=== PATIENT | female | born 1985 | race American Indian/Alaskan Native ===

== ENCOUNTER → 2022-10-15 14:24 | Outpatient (BNVA) | payer OTHER, SELFPAY | PROVIDERS: PCP Internal Medicine; Visit Provider Psychiatry & Neurology Neurology | DX: G82.20 Paraplegia, unspecified (principal) | CPT/HCPCS: 99202 ==

== ENCOUNTER 2022-10-28 13:30 | Outpatient (REF) | payer OTHER, SELFPAY ==
--- NOTE | ~2022-10-28 | CT_ITS ---
EXAMINATION: CT HEAD WITHOUT CONTRAST CLINICAL INFORMATION: Paraplegia COMPARISON: None available. TECHNIQUE: Contiguous axial imaging was performed from the skull base to vertex without intravenous administration of contrast. This CT examination was performed using dose optimization techniques as appropriate, variously including the following: *Automated exposure control *Adjustment of mA and/or kV according to patient size (this includes techniques or standardized protocols for targeted exams where dose is matched to indication/reason for exam; i.e. extremities or head) *Use of iterative reconstruction technique DLP: 605 mGy-cm FINDINGS: There is no evidence of an extra-axial collection. There is no evidence of intra or extra-axial hemorrhage. There is a prominent extra-axial CSF spaces adjacent to the superior cerebellum. Ventricles and extra-axial CSF spaces are otherwise appropriate. Blue-white matter is differentiation is normal. No mass, mass effect or infarct. Review of bone windows is normal. No skull fracture. Visualized paranasal sinuses, mastoid air cells and middle ears are clear. CT/CT head/brain wo IV con IMPRESSION: No acute findings.
== END 2022-10-28 13:31 | disposition home or self-care (01) ==
LOC: HO.CT 13:30
PROVIDERS: Visit Provider Psychiatry & Neurology Neurology
DX: G82.20 Paraplegia, unspecified (principal)
CPT/HCPCS: 70450

== ENCOUNTER 2023-03-23 14:09 | Outpatient (AMB) | payer OTHER, SELFPAY ==
[2023-03-23 14:10] VITALS: BP 104/58; PULSE 77; O2SAT 98; BMI 25.5
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
== END 2023-03-23 14:40 | disposition home or self-care (01) ==
PROVIDERS: PCP Internal Medicine; Visit Provider Psychiatry & Neurology Neurology
DX: G82.20 Paraplegia, unspecified (principal); G25.2 Other specified forms of tremor
CPT/HCPCS: 99214

== ENCOUNTER → 2023-03-23 14:09 | Outpatient (BNVA) | payer OTHER, SELFPAY | PROVIDERS: PCP Internal Medicine; Visit Provider Psychiatry & Neurology Neurology | DX: G82.20 Paraplegia, unspecified (principal); G25.2 Other specified forms of tremor | CPT/HCPCS: 99212 ==

== ENCOUNTER 2023-12-14 15:45 | Outpatient (AMB) | payer OTHER, SELFPAY ==
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
[2023-12-14 15:51] VITALS: BP 122/72; PULSE 60; RESP 16; O2SAT 100
== END 2023-12-14 16:14 | disposition home or self-care (01) ==
PROVIDERS: PCP Internal Medicine; Visit Provider Psychiatry & Neurology Neurology
DX: G82.20 Paraplegia, unspecified (principal); G25.2 Other specified forms of tremor
CPT/HCPCS: 99214

== ENCOUNTER → 2023-12-14 15:45 | Outpatient (BNVA) | payer OTHER, SELFPAY | PROVIDERS: PCP Internal Medicine; Visit Provider Psychiatry & Neurology Neurology | DX: G82.20 Paraplegia, unspecified (principal); G25.2 Other specified forms of tremor | CPT/HCPCS: 99212 ==

== ENCOUNTER 2024-01-06 11:14 | Outpatient (AMB) | payer OTHER, SELFPAY ==
--- NOTE | 2024-01-06 11:39 | MHC.OFFVIS ---
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 Pt states the beginning of November she fell at a gas station due to her legs just giving out. She states the only time there is pain is when she has a fall. Allergies propofol Adverse Reaction (Unknown, Verified 01/06/24 11:41) Unknown Medication List - Last Reconciled 01/06/24 by Anny Menjivar MD acetaminophen 325 mg PO QID PRN blood sugar diagnostic (FreeStyle Lite Strips) As directed blood-glucose meter (FreeStyle Lite Meter kit) As directed buspirone 5 mg PO DAILY hydroxyzine HCl 25 mg PO BEDTIME lancets (FreeStyle Lancets) As directed mirtazapine 15 mg PO BEDTIME propranolol 10 mg PO BID HPI Comments Details: Here with mom and Valery, nurse from [facility]. No history of surgery. Uses bilateral AFOs, new this year. She has walker and WC, but most of the time does not use it. She says she takes it when she goes to day program. Independent with ADLs. Lives in own apartment, owned by [facility]. Staff available 2-3 times a day, assist with medication reminders and BP monitoring. Appointment to start PT 01/10/24. Feels stabbing when she walks, pointing to xiong. Old scar/redness from older braces, denies rubbing with new AFOs. Legs give out, she tends to fall. Less weakness with this new AFO. Both feet at plantarflexed, difficulty/weakness on dorsiflexion. Denies numbness. She has not had any type of injection or surgery to her legs/ankle. [facility] Medical History (Updated 01/06/24 @ 13:17 by Anny Menjivar MD) Spastic diplegic cerebral palsy Coarse tremors Paraparesis Intellectual disability Glucose intolerance Anxiety Developmental delay, borderline Complete heart block Pacemaker Social History Alcohol intake: never Patient Tobacco Use Status: Never used Tobacco Review of Systems Const All systems reviewed & are unremarkable except as noted in HPI and below Physical Exam Constitutional: Patient appears to be in no acute distress, well nourished and well developed. MSK/neuro: Patient has at least 4/5 strength on bilateral hip flexion, knee flexion and knee extension. She is able to extend dorsally her big toes, bilateral. She is unable to dorsiflex voluntarily. At rest/supine, right ankle is 45 degrees plantar flexion and left ankle is also 45 degrees plantar flexion. I can passively dorsiflex the right ankle only up to -5 degrees dorsiflexion. And I can passively dorsiflex left ankle up to -30 degrees dorsiflexion. No clonus. Patient walks very deliberately, with good heel strike, but with knees bent. That is with using her AFOs. Deferred gait exam without AFOs. Results Reviewed Results Reviewed: I reviewed records from the following: Dr. Sherman/neurology Assessment & Plan Assessment & Plan (1) Spastic diplegic cerebral palsy: Code(s): G80.1 - Spastic diplegic cerebral palsy Category: Medical Plan History of cerebral palsy, with spastic diplegia, affecting bilateral lack of spontaneous dorsiflexion. Most likely from spastic/tight gastrocnemius or soleus muscles. Patient?s abnormal muscle tone in the setting of cerebral palsy with spastic diplegia is interfering with functional ability, and is expected to result in joint contracture without adequate intervention. Standard medical treatments such as bracing have failed. Surgical intervention is considered to be the last option. Therefore chemodenervation using botulinum is deemed necessary to enhance function and allow additional therapeutic modalities to be employed. After a long discussion with the patient, mother and nurse, we have decided to go ahead and do botulinum toxin injection into gastrocnemius muscles, bilateral. A total of 200 units units of Botox is anticipated. The procedure will being scheduled after prior authorization. Muscles to be injected: Medial and lateral gastrocnemius, left, 50 units each Median lateral gastrocnemius, right, 50 units each Patient understands that we may have to adjust the dose based on her improvement. She understands that injections will need to be done every 3 months. Assessment and plan discussed with patient, and patient was agreeable. All questions were answered thoroughly. Anny Menjivar MD, ELADIO Board Certified, [place] Board of Physical Medicine and Rehabilitation (ABPMR) Board Certified, [place] Board of Electrodiagnostic Medicine (ABEM) Coding Level of Care Code New Pt Level 4 (82501) Diagnoses Spastic diplegic cerebral palsy G80.1
== END 2024-01-06 12:17 | disposition home or self-care (01) ==
PROVIDERS: PCP Internal Medicine; Visit Provider Physical Medicine & Rehabilitation
DX: G80.1 Spastic diplegic cerebral palsy (principal)
CPT/HCPCS: 99204

== ENCOUNTER → 2024-01-06 11:14 | Outpatient (BNVA) | payer OTHER, SELFPAY | PROVIDERS: PCP Internal Medicine; Visit Provider Physical Medicine & Rehabilitation | DX: G80.1 Spastic diplegic cerebral palsy (principal) | CPT/HCPCS: 99202 ==

== ENCOUNTER 2024-04-12 08:12 | Outpatient (AMB) | payer OTHER, SELFPAY ==
--- NOTE | 2024-04-12 08:12 | MHC.OFFVIS ---
Intake Visit Reasons: TELE - Botox Discussion Intake Note: Jacqueline is a 38 year old female who presents to the office as a telehealth appt for a botox discussion. Allergies propofol Adverse Reaction (Unknown, Verified 04/12/24 08:13) Unknown Medication List - Last Reconciled 04/12/24 by Anny Menjivar MD acetaminophen 325 mg PO QID PRN blood sugar diagnostic (FreeStyle Lite Strips) As directed blood-glucose meter (FreeStyle Lite Meter kit) As directed buspirone 5 mg PO DAILY hydroxyzine HCl 25 mg PO BEDTIME lancets (FreeStyle Lancets) As directed melatonin mg PO mirtazapine 15 mg PO BEDTIME propranolol 10 mg PO BID HPI Comments Details: No history of surgery. Uses bilateral AFOs, new this year. She has walker and WC, but most of the time does not use it. She says she takes it when she goes to day program. Independent with ADLs. Lives in own apartment, owned by [facility]. Staff available 2-3 times a day, assist with medication reminders and BP monitoring. Feels stabbing when she walks, pointing to xiong. Old scar/redness from older braces, denies rubbing with new AFOs. Legs give out, she tends to fall. Less weakness with this new AFO. Both feet at plantarflexed, difficulty/weakness on dorsiflexion. Denies numbness. She has not had any type of injection or surgery to her legs/ankle. Patient had no showed to appointment for botulinum toxin injections last March so this telehealth is to make sure she is still on board to getting injections. She says that legs still occasionally give out. No recent hospitalizations or infections. [facility] Medical History Spastic diplegic cerebral palsy Coarse tremors Paraparesis Intellectual disability Glucose intolerance Anxiety Developmental delay, borderline Complete heart block Pacemaker Social History Alcohol intake: never Patient Tobacco Use Status: Never used Tobacco Telehealth Telehealth Telehealth Platform: Telephone Location of provider rendering services: practice address Location of patient: address on file Patient Identification confirmed using: Name, : Yes Telehealth method: voice only Patient verbally consented to treatment: Yes Patient verbally consented to billing insurance company: Yes Patient informed of any privacy concerns related to visit: Yes Assessment & Plan Assessment & Plan (1) Spastic diplegic cerebral palsy: Code(s): G80.1 - Spastic diplegic cerebral palsy Category: Medical Plan History of cerebral palsy, with spastic diplegia, affecting bilateral lack of spontaneous dorsiflexion. Most likely from spastic/tight gastrocnemius or soleus muscles. Patient?s abnormal muscle tone in the setting of cerebral palsy with spastic diplegia is interfering with functional ability, and is expected to result in joint contracture without adequate intervention. Standard medical treatments such as bracing have failed. Surgical intervention is considered to be the last option. Therefore chemodenervation using botulinum is deemed necessary to enhance function and allow additional therapeutic modalities to be employed. Patient is eager to proceed with scheduling Botox injections. We will most likely schedule this on May 03; central scheduling will call her to formalize appointment. I advised here where to go. She verbalizes agreement and understanding. Muscles to be injected: Medial and lateral gastrocnemius, left, 50 units each Median lateral gastrocnemius, right, 50 units each total 200 units Patient understands that we may have to adjust the dose based on her improvement. She understands that injections will need to be done every 3 months. Assessment and plan discussed with patient, and patient was agreeable. All questions were answered thoroughly. Anny Menjivar MD, ELADIO Board Certified, [place] Board [employer] Physical Medicine and Rehabilitation (ABPMR) Board Certified, [place] Board [employer] Electrodiagnostic Medicine (ABEM) Coding Level of Care Code Est Pt Level 3 (91828) Diagnoses Spastic diplegic cerebral palsy G80.1
== END 2024-04-12 08:53 | disposition home or self-care (01) ==
LOC: HO.HOS 08:12
PROVIDERS: PCP Internal Medicine; Visit Provider Physical Medicine & Rehabilitation
DX: G80.1 Spastic diplegic cerebral palsy (principal)
CPT/HCPCS: 99213

== ENCOUNTER → 2024-04-12 08:12 | Outpatient (BNVA) | payer OTHER, SELFPAY | PROVIDERS: PCP Internal Medicine; Visit Provider Physical Medicine & Rehabilitation ==

== ENCOUNTER 2024-05-03 13:34 | Outpatient (REF) | payer OTHER, SELFPAY ==
--- NOTE | 2024-05-03 13:42 | EMG_ITS ---
PROCEDURE PERFORMED: Botulinum toxin chemodenervation ICD10: Spastic diplegic cerebral palsy? G80.1 INDICATION: spastic muscles PREVIOUS TREATMENT AND RESPONSE: Oral antispasticity medications and physical therapy without response EXAM ON DAY OF PROCEDURE: Plantar flexed ankle -45 degrees, bilateral TOXIN USED: Botox PROCEDURE: The procedure was explained to the patient/caregiver, and informed consent was obtained. The patient laid down prone on bed. Bilateral calves were cleansed with betadine in the usual sterile manner. A 26 gauge needle electrode was used. Muscle Units per site Number of sites Units per muscle Right MG 50 1 50 Right LG 50 1 50 Left MG 50 1 50 Left MG 50 1 50 EMG-guidance was used during the injection. A total of 200 units injected. 0 units wastage. Vial size: 200 units per vial Dilution: 100 units per 1 ml of preservative free saline The patient tolerated the procedure well without complications. The patient was observed for 30 minutes, before being discharged with post procedure instructions. CODING: CPT code: 66105 1 ext, 1-4 muscles 24065 each add?l limb, 1-4 muscles Guidance code: 93297 EMG guidance for chemodenervation J code: Botox J0585 [facility] code: 5241-6012-71 Lot #: [id number] [facility]
== END 2024-05-03 13:35 | disposition home or self-care (01) ==
LOC: HO.NEURO 13:34
PROVIDERS: PCP Internal Medicine; Visit Provider Physical Medicine & Rehabilitation
DX: G80.1 Spastic diplegic cerebral palsy (principal)
CPT/HCPCS: 64642; 64643; 95874; J0585

== ENCOUNTER → 2024-05-03 13:42 | Outpatient (BNV) | payer OTHER, SELFPAY | PROVIDERS: PCP Internal Medicine; Visit Provider Physical Medicine & Rehabilitation | DX: G80.1 Spastic diplegic cerebral palsy (principal) | CPT/HCPCS: 64642; 64643; 95874 ==

== ENCOUNTER 2024-06-15 11:34 | Outpatient (AMB) | payer OTHER, SELFPAY ==
--- NOTE | 2024-06-15 11:34 | MHC.OFFVIS ---
Intake Visit Reasons: TH: Botox follow up - inj date: 05/03/24 Intake Note: Jacqueline is a 38 year old female who presents to the office as a telehealth visit for a Botox follow up - inj date: 05/03/24. 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 Audrey denies any complications or side effects. But she is not sure whether it has helped her. Mom had mentioned seeing her weaker while she was walking in [employer]. [facility] Medical History Spastic diplegic cerebral palsy Coarse tremors Paraparesis Intellectual disability Glucose intolerance Anxiety Developmental delay, borderline Complete heart block Pacemaker Social History Alcohol intake: never Patient Tobacco Use Status: Never used Tobacco Telehealth Telehealth Telehealth Platform: Telephone Location of provider rendering services: practice address Location of patient: address on file Patient Identification confirmed using: Name, : Yes Telehealth method: voice only Patient verbally consented to treatment: Yes Patient verbally consented to billing insurance company: Yes Patient informed of any privacy concerns related to visit: Yes Assessment & Plan Assessment & Plan (1) Spastic diplegic cerebral palsy: Code(s): G80.1 - Spastic diplegic cerebral palsy Category: Medical Plan History of cerebral palsy, with spastic diplegia, affecting bilateral lack of spontaneous dorsiflexion. I would need to see her in person to evaluate whether botulinum toxin injection helped spasticity of her dorsiflexors or if it was too much making her weaker. We will schedule for an in-person follow up and patient was agreeable to this. Assessment and plan discussed with patient, and patient was agreeable. All questions were answered thoroughly. Telephone encounter today, less than than 10 minutes. Anny Menjivar MD, ELADIO Board Certified, [place] Board [employer] Physical Medicine and Rehabilitation (ABPMR) Board Certified, [place] Board of Electrodiagnostic Medicine (ABEM) Coding Level of Care Code Tele Est Pt Level 3 (47320) Diagnoses Spastic diplegic cerebral palsy G80.1
== END 2024-06-15 11:51 | disposition home or self-care (01) ==
PROVIDERS: PCP Internal Medicine; Visit Provider Physical Medicine & Rehabilitation
DX: G80.1 Spastic diplegic cerebral palsy (principal)
CPT/HCPCS: 99213

== ENCOUNTER 2024-06-28 15:14 | Outpatient (AMB) | payer OTHER, SELFPAY ==
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
[2024-06-28 15:19] VITALS: BP 115/70; PULSE 67; O2SAT 99
== END 2024-06-28 15:36 | disposition home or self-care (01) ==
PROVIDERS: PCP Internal Medicine; Visit Provider Psychiatry & Neurology Neurology
DX: G82.20 Paraplegia, unspecified (principal); G25.2 Other specified forms of tremor
CPT/HCPCS: 99214

== ENCOUNTER → 2024-06-28 15:14 | Outpatient (BNVA) | payer OTHER, SELFPAY | PROVIDERS: PCP Internal Medicine; Visit Provider Psychiatry & Neurology Neurology | DX: G82.20 Paraplegia, unspecified (principal); G25.2 Other specified forms of tremor | CPT/HCPCS: 99212 ==

== ENCOUNTER 2024-07-13 09:05 | Outpatient (AMB) | payer OTHER, SELFPAY ==
--- NOTE | 2024-07-13 09:11 | MHC.OFFVIS ---
Vital Signs 07/13/24 09:11 Height 56 ft Weight 140 lb BMI 0.2 Intake Visit Reasons: OV-Botox follow up - inj date: 05/03/24 Intake Note: Jacqueline is a 38 year old female who presents to the office for a Botox follow up - inj date: 05/03/24. Patient reports she does not feel much of a difference from her injection. She says her bilateral legs have been giving out on her a lot, right worse than left. Allergies propofol Adverse Reaction (Unknown, Verified 07/13/24 09:12) Unknown HPI Comments Details: In-person post Botox injection follow-up: Last injection 05/03/2024. This was patient's 1st Botox injection. ICD10: Spastic diplegic cerebral palsy? G80.1 INDICATION: spastic muscles PREVIOUS TREATMENT AND RESPONSE: Oral antispasticity medications and physical therapy without response EXAM ON DAY OF PROCEDURE: Plantar flexed ankle -45 degrees, bilateral TOXIN USED: Botox PROCEDURE: The procedure was explained to the patient/caregiver, and informed consent was obtained. The patient laid down prone on bed. Bilateral calves were cleansed with betadine in the usual sterile manner. A 26 gauge needle electrode was used. Muscle Units per site Number of sites Units per muscle Right MG 50 1 50 Right LG 50 1 50 Left MG 50 1 50 Left MG 50 1 50 EMG-guidance was used during the injection. A total of 200 units injected. 0 units wastage. Patient tells me that she feels the same as before Botox injection. She also tells me that she has fallen a few times, legs giving out. Tried to get a clear history from her whether she feels more weak/loose or falling from stiffness or pain. She maintains that she does have pain on anterior legs and thigh, it feels stiff on those areas, but also her left foot tends to give out. [facility] Medical History Spastic diplegic cerebral palsy Coarse tremors Paraparesis Intellectual disability Glucose intolerance Anxiety Developmental delay, borderline Complete heart block Pacemaker Social History Alcohol intake: never Patient Tobacco Use Status: Never used Tobacco Physical Exam Vital Signs: BMI result Body Mass Index 0.2 Constitutional: Patient appears to be in no acute distress, well nourished and well developed. PRIOR to botulinum toxin injection: I can passively dorsiflex the right ankle only up to -5 degrees dorsiflexion. And I can passively dorsiflex left ankle up to -30 degrees dorsiflexion. No clonus. Patient walks very deliberately, with good heel strike, but with knees bent. That is with using her AFOs. Deferred gait exam without AFOs. TODAY post botulinum toxin injection 05/03/24: I can now passively dorsiflex the right ankle to -5 degrees from neutral. And -10 on left side. This is improved from previous. There is tone on quadriceps, right worse than left. There is some tone on foot inversion. Assessment & Plan Assessment & Plan (1) Spastic diplegic cerebral palsy: Code(s): G80.1 - Spastic diplegic cerebral palsy Category: Medical Plan History of cerebral palsy, with spastic diplegia, affecting bilateral lack of spontaneous dorsiflexion. We agreed to continue botulinum toxin injections, next injection 08/09/2024, 14:30. Continue dose on gastrocnemius/calf muscles to prevent plantar flexion. We will add at least 25 units on quadriceps and 25 units to tibialis posterior, bilateral. Increasing total dose of 300 units. Assessment and plan discussed with patient, and patient was agreeable. All questions were answered thoroughly. Anny Menjivar MD, ELADIO Board Certified, [place] [employer] and Rehabilitation (ABPMR) Board Certified, [place] [employer] Electrodiagnostic Medicine (ABEM) Coding Level of Care Code Est Pt Level 4 (97757) Complex EM visit Add On G2211 Diagnoses Spastic diplegic cerebral palsy G80.1
== END 2024-07-13 09:36 | disposition home or self-care (01) ==
PROVIDERS: PCP Internal Medicine; Visit Provider Physical Medicine & Rehabilitation
DX: G80.1 Spastic diplegic cerebral palsy (principal)
CPT/HCPCS: 99213; G2211

== ENCOUNTER → 2024-07-13 09:05 | Outpatient (BNVA) | payer OTHER, SELFPAY | PROVIDERS: PCP Internal Medicine; Visit Provider Physical Medicine & Rehabilitation | DX: G80.1 Spastic diplegic cerebral palsy (principal) | CPT/HCPCS: 99212 ==

== ENCOUNTER → 2024-08-09 12:00 | Outpatient (BNV) | payer OTHER, SELFPAY | PROVIDERS: PCP Internal Medicine; Visit Provider Physical Medicine & Rehabilitation | DX: G80.1 Spastic diplegic cerebral palsy (principal) | CPT/HCPCS: 64642; 64643; 95874 ==

== ENCOUNTER 2024-08-09 14:23 | Outpatient (REF) | payer OTHER, SELFPAY ==
--- NOTE | 2024-08-09 12:00 | EMG_ITS ---
PROCEDURE PERFORMED: Botulinum toxin chemodenervation ICD10: Spastic diplegic cerebral palsy G80.1 INDICATION: spastic muscles PREVIOUS TREATMENT AND RESPONSE: Oral antispasticity medications and physical therapy without response EXAM 07/13/24: I can passively dorsiflex the right ankle only up to -5 degrees dorsiflexion. And I can passively dorsiflex left ankle up to -30 degrees dorsiflexion. No clonus. There is tone on quadriceps, right worse than left. There is some tone on foot inversion. TOXIN USED: Botox PROCEDURE: The procedure was explained to the patient/caregiver, and informed consent was obtained. The patient laid down on bed. Bilateral lower extremity were cleansed with betadine in the usual sterile manner. A 26 gauge needle electrode was used. Muscle Units per site Number of sites Units per muscle Right MG 25 2 50 Right LG 25 2 50 Right PT 25 1 25 Right rectus femoris 25 1 25 Left MG 25 2 50 Left MG 25 2 50 Left PT 25 1 25 Left rectus femoris 25 1 25 EMG-guidance was used during the injection. A total of 300 units injected. 0 units wastage. Vial size: 100 units per vial Dilution: 100 units per 1 ml of preservative free saline The patient tolerated the procedure well without complications. The patient was observed for 30 minutes, before being discharged with post procedure instructions. CODING: CPT code: 35453 1 ext, 1-4 muscles 87684 each add?l limb, 1-4 muscles Guidance code: 12688 EMG guidance for chemodenervation J code: Botox J0585 [facility] code: 8435-4680-56 Lot #: [id number] [facility]
== END 2024-08-09 14:24 | disposition home or self-care (01) ==
LOC: HO.NEURO 14:23
PROVIDERS: PCP Internal Medicine; Visit Provider Physical Medicine & Rehabilitation
DX: G80.1 Spastic diplegic cerebral palsy (principal)
CPT/HCPCS: 64642; 64643; 95874; J0585

== ENCOUNTER 2024-10-12 09:02 | Outpatient (AMB) | payer OTHER, SELFPAY ==
[2024-10-12 09:05] VITALS: BMI 22.6
--- NOTE | 2024-10-12 09:05 | A.OFFVIS_ITS ---
Vital Signs 10/12/24 09:05 Height 5 ft 6 in Weight 140 lb BMI 22.6 Intake Visit Reasons: OV - Botox B/L LE Injection 08/09/24 F/U Intake Note: Jacqueline 38 yr old female presents today for her follow up visit for her S/P Botox bilateral lower extremity Injection 08/09/24. States she has not felt any better or different since her botox injections. She mention that yesterday while in class, she lost her balance and almost fell. Allergies propofol Adverse Reaction (Unknown, Verified 10/12/24 09:09) Unknown Medication List - Last Reconciled 10/12/24 by Anny Menjivar MD acetaminophen 325 mg PO QID PRN blood sugar diagnostic (FreeStyle Lite Strips) As directed blood-glucose meter (FreeStyle Lite Meter kit) As directed buspirone 5 mg PO DAILY diclofenac sodium 1% topical hydroxyzine HCl 25 mg PO BEDTIME lancets (FreeStyle Lancets) As directed melatonin mg PO mirtazapine 15 mg PO BEDTIME propranolol 10 mg PO BID HPI Comments Details: In-person post Botox injection follow-up: Injection: 08/09/2024, 05/03/2024. ICD10: Spastic diplegic cerebral palsy? G80.1 INDICATION: spastic muscles PREVIOUS TREATMENT AND RESPONSE: Oral antispasticity medications and physical therapy without response EXAM ON DAY OF PROCEDURE: Plantar flexed ankle -45 degrees, bilateral TOXIN USED: Botox PROCEDURE: The procedure was explained to the patient/caregiver, and informed consent was obtained. The patient laid down prone on bed. Bilateral calves were cleansed with betadine in the usual sterile manner. A 26 gauge needle electrode was used. Muscle Units per site Number of sites Units per muscle Right MG 25 2 50 Right LG 25 2 50 Right PT 25 1 25 Right rectus femoris 25 1 25 Left MG 25 2 50 Left MG 25 2 50 Left PT 25 1 25 Left rectus femoris 25 1 25 EMG-guidance was used during the injection. A total of 300 units injected. 0 units wastage. She says that left leg was always looser than the right leg. She can move left ankle much better than the right. She complains of pain superior/l ateral/inferior to right knee. Describes it as feeling stiff. She mentions she needs more padding for old AFOs. She mentions that the right AFO does not do well for her. [facility] Medical History Spastic diplegic cerebral palsy Coarse tremors Paraparesis Intellectual disability Glucose intolerance Anxiety Developmental delay, borderline Complete heart block Pacemaker Social History Alcohol intake: never Patient Tobacco Use Status: Never used Tobacco Physical Exam Vital Signs: BMI result Body Mass Index 22.6 Constitutional: Patient appears to be in no acute distress, well nourished and well developed. PRIOR to 1st botulinum toxin injection 05/2024: I can passively dorsiflex the right ankle only up to -5 degrees dorsiflexion. And I can passively dorsiflex left ankle up to -30 degrees dorsiflexion. No clonus. Patient walks very deliberately, with good heel strike, but with knees bent. That is with using her AFOs. Deferred gait exam without AFOs. TODAY post botulinum toxin injection 08/09/2024: I can passively dorsiflex the right ankle only up to neutral now. More limited ankle range of motion on the right. There is some tone on quadriceps, Dani 1 at least. I can passively dorsiflex left ankle up to -5 degrees from neutral. Left foot turns in at rest. No clonus. Patient walks very deliberately, with good heel strike, knees are not bent anymore. She does not wear AFOs today. Noted that the right tends to turn in/sister in when walking. Assessment & Plan Assessment & Plan (1) Spastic diplegic cerebral palsy: Code(s): G80.1 - Spastic diplegic cerebral palsy Category: Medical Plan History of cerebral palsy, with spastic diplegia, affecting bilateral lack of spontaneous dorsiflexion. After much discussion, Jacqueline decides to continue botulinum toxin injections. Although we have not obtained perfect results, this is still much better than what it used to be prior to injections. Left leg appears much looser now compared to the right. Plan to increase further under right side. Increase dose to 350 units. Increase dose on right rectus to 50 units. Right tibialis posterior 50 units. Same dose in the rest. We will also refer her to [facility] for either adjustment of current AFOs or consideration of new AFOs. Assessment and plan discussed with patient, and patient was agreeable. All questions were answered thoroughly. Total of 45 minutes spent today including chart review, results review, history taking, physical examination, discussion of assessment and plan, and coordination of care. [ ] Anny Menjivar MD, ELADIO Board Certified, [place] [employer] and Rehabilitation (ABPMR) Board Certified, [place] [employer] Electrodiagnostic Medicine (ABEM) Medications: New leg brace (Ankle Brace) Bilateral AFO custom molded either adjustment of current AFOs or consideration of new AFOs. 1 ea 0RF G80.1 - Spastic diplegic cerebral palsy Coding Level of Care Code Est Pt Level 4 (32310) Diagnoses Spastic diplegic cerebral palsy G80.1
== END 2024-10-12 09:34 | disposition home or self-care (01) ==
LOC: HO.HOS 09:02
PROVIDERS: PCP Internal Medicine; Visit Provider Physical Medicine & Rehabilitation
DX: G80.1 Spastic diplegic cerebral palsy (principal)
CPT/HCPCS: 99214

== ENCOUNTER → 2024-10-12 09:02 | Outpatient (BNVA) | payer OTHER, SELFPAY | PROVIDERS: PCP Internal Medicine; Visit Provider Physical Medicine & Rehabilitation | DX: G80.1 Spastic diplegic cerebral palsy (principal) | CPT/HCPCS: 99212 ==

== ENCOUNTER → 2024-12-06 11:12 | Outpatient (BNV) | payer OTHER, SELFPAY | PROVIDERS: PCP Internal Medicine; Visit Provider Physical Medicine & Rehabilitation | DX: G80.1 Spastic diplegic cerebral palsy (principal) | CPT/HCPCS: 64644; 64645; 95874 ==

== ENCOUNTER 2024-12-06 13:43 | Outpatient (REF) | payer OTHER, SELFPAY ==
--- NOTE | 2024-12-06 11:12 | EMG_ITS ---
PROCEDURE PERFORMED: Botulinum toxin chemodenervation ICD10: Spastic diplegic cerebral palsy G80.1 INDICATION: spastic muscles History of cerebral palsy, with spastic diplegia, affecting bilateral lack of spontaneous dorsiflexion. After much discussion, Jacqueline decides to continue botulinum toxin injections. Although we have not obtained perfect results, this is still much better than what it used to be prior to injections. Left leg appears much looser now compared to the right. Plan to increase further under right side. Prevous injection: 08/09/2024, 05/03/2024. Exam post botulinum toxin injection 08/09/2024: I was able to passively dorsiflex the right ankle only up to neutral now. More limited ankle range of motion on the right. There is some tone on quadriceps, Dani 1 at least. I can passively dorsiflex left ankle up to -5 degrees from neutral. Left foot turns in at rest. No clonus. Patient walks very deliberately, with good heel strike, knees are not bent anymore. She does not wear AFOs today. Noted that the right tends to turn in/ scissor in when walking. 12/06/2024: Right foot does turn in more than the left. Muscle Units per site Number of sites Units per muscle Right MG 25 2 50 Right LG 25 2 50 Right PT 25 2 50 Right rectus femoris 25 2 50 Left MG 25 2 50 Left MG 25 2 50 Left PT 25 1 25 Left rectus femoris 25 1 25 EMG-guidance was used during the injection. A total of 350 units injected. 50 units wastage. Vial size: 100 units per vial Dilution: 100 units per 1 ml of preservative free saline The patient tolerated the procedure well without complications. The patient was observed for 30 minutes, before being discharged with post procedure instructions. CODING: CPT code: 26177 1 ext, 5 or more muscles 75919 each add?l limb, 5 or more muscles Wastage: Guidance code: 89518 EMG guidance for chemodenervation J code: Botox J0585 [facility] code:[id number] lot number: [id number] x2 vials, [id number], [id number] Expiration date: , [facility]
--- OUTSIDE RECORDS SUMMARY | 2024-12-06 15:00 | XMS_ITS | Encounter Summary ---
Author Organization [facility] Address [address] [place] [address] Care Team Providers Care Broadcast Operations Technician Name Role Phone Aj Devlin MD Primary Care Provider [phone] [phone] Reason for Visit * Reason Comments Blood Sugar Problem Encounter Details Date Type Department Care Team (Late st Contact Info) Description 12/05/2024 2:45 PM EDT Office Visit [address] [phone] Marybeth Gonzalez PA [address] [place] [address] High blood sugar (Primary Dx) Social History Tobacco Use Types Packs/Day Years Used Date Smoking Tobacco: Never Smokeless Tobacco: Never Tobacco Cessation:Counseling Given: Not Answered Alcohol Use Standard Drinks/Week Comments No 0 (1 standard drink = 0.6 oz pur e alcohol) Comments No Sex and Gender Information Value Date Recorded Sex Assigned at Not on file Legal Sex Female 8:41 PM EST Gender Identity Not on file Sexual Orientation Not on file documented as of this encounter Last Filed Vital Signs Vital Sign Reading Time Taken Comments Blood Pressure 110/60 12/05/2024 2:52 PM EDT Pulse 64 12/05/2024 2:52 PM EDT Temperature 35.8 ??C (96.5 ??F) 12/05/2024 2:52 PM ED T Respiratory Rate - - Oxygen Saturation 98% 12/05/2024 2:52 PM EDT Inhaled Oxygen Concentration - - Weight 66.6 kg (146 lb 12.8 oz) 12/05/2024 2:52 PM EDT Height 168.9 cm (5' 6.5 ) 12/05/2024 2:52 PM EDT Body Mass Index 23.34 12/05/2024 2:52 PM EDT documented in this encounter Progress Notes * Ana Smith MA - 12/05/2024 2:45 PM EDT Lab Results Component Value Date GLUCOSE 102 12/05/2024 * CATHY Ricks - 12/05/2024 2:45 PM EDT CHIEF COMPLAINT: Blood Sugar Problem IDENTIFIER: Jacqueline Hawkins is a 38 y.o. old female. HPI: Patient presents to the visit for follow-up on concerns of high blood sugar readings Lab Results Component Value Date HGBA1C 5.3 08/03/2024 HGBA1C 5.2 10/01/2023 Last time I saw patient was in October 2022. She has seen Dr. Beckett afterwards Patient has had issues where she believes her sugars are high. She comes in with documented numbersin the 3-4 100s. But when we do lab work and reviewed glucometer data is always normal Her last A1c was 5.3 Fingerstick in the office 102 She again complains of blood sugars as high as 300. Feels she needs medication for her diabetes. Of note she is also on the past complaint of severe hypoglycemia. She has seen [facility] endocrinology in the past for this and workup was normal. She did do a 72-hour fasting study Wt Readings from Last 3 Encounters: 12/05/24 66.6 kg (146 lb 12.8 oz) 11/15/24 66.6 kg (146 lb 12.8 oz) 10/27/24 67.4 kg (148 lb 8 oz) ROS: GENERAL: No malaise, significant weight loss or fever HEENT: No changes in hearing or vision, nose bleeds or other nasal problems RESPIRATORY: No cough, wheezing or shortness of breath CARDIOVASCULAR: No chest pain, leg swelling or palpitations GI: No abdominal discomfort, blood in stools or black stools ENDOCRINE: See HPI MUSCULOSKELETAL: No joint pain or swelling, back pain, or muscle pain. NEURO: No persistent headache, syncope, seizures, weakness or numbness PAST MEDICAL HISTORY: Patient Active Problem List Diagnosis Date Noted Severe episode of recurrent major depressive disorder, without psychotic features ([facility] V24, [facility] V28) 10/27/2024 PTSD (post-traumatic stress disorder) 10/27/2024 Developmental delay 05/25/2024 Focal nodular hyperplasia of liver 01/06/2022 Hepatic adenoma 01/06/2022 Hypoglycemia 08/27/2020 Complete heart block ([facility] V24, [facility] V28) 09/14/2017 Anxiety 08/01/2014 Mild intellectual disability 05/31/2008 SOCIAL HISTORY: Social History Tobacco Use Smoking status: Never Smokeless tobacco: Never Substance Use Topics Alcohol use: No FAMILY HISTORY: Family Status Relation Name Status Mother (Not Specified) PGF (Not Specified) PGM (Not Specified) No partnership data on file Family History Problem Relation Name Age of Onset Other (Other: lupus) Mother Diabetes Paternal Grandfather Breast cancer Paternal Grandmother ACTIVE MEDICATIONS: Outpatient Medications Marked as Taking for the 12/05/24 encounter (Office Visit) with CATHY Ricks Medication Sig Dispense Refill blood sugar diagnostic (FreeStyle Lite Strips) test strip Use as instructed 100 each 1 blood-glucose meter kit Use daily or as directed for monitoring of diabetes. Freestyle lite meter. 1 each 0 freestyle (FreeStyle Lancets) 28 gauge lancets Check sugars as directed upto 2 times a day 200 each1 hydrOXYzine HCL (ATARAX) 25 mg tablet Take 1 tablet (25 mg total) by mouth 1 (one) time each day. In PM melatonin 3 mg tablet Take 2 tablets (6 mg total) by mouth at bedtime. propranoloL (INDERAL) 10 mg tablet Take 1 tablet (10 mg total) by mouth 2 (two) times a day. traZODone (DESYREL) 50 mg tablet Take 1 tablet (50 mg total) by mouth at bedtime. UNABLE TO FIND Blood Glucose Calibration (FreeStyle Control Solution) Liquid, USE TO CALIBRATE METER [DISCONTINUED] acetaminophen (TYLENOL) 325 mg tablet Take 650 mg by mouth every 4 hours as needed for Pain. NTE 3g in 24 hrs ALLERGIES: Propofol PHYSICAL EXAM: Blood pressure 110/60, pulse 64, temperature 35.8 ??C (96.5 ??F), temperature source Temporal, height 1.689 m (66.5 ), weight 66.6 kg (146 lb 12.8 oz), SpO2 98%. Body mass index is 23.34 kg/m??. Planis deferred until next visit APPEARANCE: Alert and in no acute distress NEURO: Awake, alert and oriented x 3 LABS: Lab Results Component Value Date HGBA1C 5.3 08/03/2024 CHOL 151 03/10/2023 LDL 69 03/10/2023 HDL 69 03/10/2023 TRIG 66 03/10/2023 Lab Results Component Value Date GLUCOSE 102 12/05/2024 No results found for: TSH IMAGING: IMPRESSION: 1. High blood sugar PLAN: Patient presents to the office for concerns of hyperglycemia. In the past patient has had A1c's, 2-hour glucose tolerance test, sensors placed they always demonstrate normal glucose control She again is concerned that she is having sugars in the 300s I have no data to collaborate this Regarding again check 2-hour glucose tolerance test, hemoglobin A1c, and ashlyn 3+ sensor supply provided to the patient I do believe this is all probably due to anxiety and there is no true hyperglycemia But we will reevaluate again All questions and concerns were addressed. Patient understands and agrees with this treatment plan.Patient was reminded to call or return to the office if any new or existing problems arise This document was made using voice recognition software. It may contain some errors in grammar or syntax Medication and lab orders: High blood sugar (Primary) - POC glucose manually resulted - Hemoglobin A1c; Future - Glucose tolerance, 2 hours; Future CATHY Ricks on 12/05/2024 at 3:14 PM EDT documented in this encounter Plan of Treatment Upcoming Encounters Date Type Department Care Team (Late st Contact Info) Description 12/13/2024 9:00 AM EDT Lab Draw Station - [address] 12/22/2024 2:45 PM EDT Office Visit Endocrinology - [address] [phone] Marybeth Gonzalez PA [address] [place] [address] 04/30/2025 3:00 PM EDT Office Visit Internal Medicine - [address] [phone] Rosanna Lu NP [address] [place] [address] Scheduled Orders Name Type Priority Associated Diagnoses Orde r Schedule Hemoglobin A1c Lab Routine High blood sugar 1 Occurrences starting 12/05/2024 until 12/05/2025 Glucose tolerance, 2 hours Lab Routine High blood sugar 1 Occurrences starting 12/05/2024 until 12/05/2025 documented as of this encounter Procedures Procedure Name Priority Date/Time Associated Diagnosis Comments POC GLUCOSE Routine 12/05/2024 2:56 PM EDT High blood sugar documented in this encounter Results * POC glucose manually resulted (12/05/2024 2:56 PM EDT) Glucose POC 102 mg/dL Comment:non fasting Blood Capillary blood specimen / Unknown 12/05/2024 2:56 PM EDT us Marybeth MORGAN POINT OF CARE TEST ENTER/ED IT ORDERABLES Final Result documented in this encounter Visit Diagnoses Diagnosis High blood sugar- Primary Other abnormal glucose documented in this encounter Discontinued Medications Medication Sig Discontinue Reason Start Date End Da te WALKER MISC 1 Units by Does not apply route daily. Therapy completed 05/28/2021 12/05/2024 acetaminophen (TYLENOL) 325 mg tablet Take 650 mg by mouth every 4 hours as needed for Pain. NTE 3g in 24 hrs Therapy completed 12/05/2024 escitalopram (LEXAPRO) 10 mg tablet Take 1 tablet (10 mg total) by mouth 1 (one) time each day. Therapy completed 12/05/2024 documented as of this encounter Care Teams Broadcast Operations Technician Relationship Specialty Start Date End Date Aj Devlin MD [address] [place] [id number] PCP - General Internal Medicine 05/20/16 documented as of this encounter
--- OUTSIDE RECORDS SUMMARY | 2024-12-06 15:00 | XMS_ITS | Encounter Summary ---
Author Organization [facility] Address [address] [place] [address] Care Team Providers Care Consultant In Ergonomics And Safety Name Role Phone Aj Devlin MD Primary Care Provider [phone] Reason for Visit * Reason Comments home health cert Encounter Details Date Type Department Care Team (Late st Contact Info) Description 12/01/2024 Billing Patient Not Present [facility] [address] [place] [phone] Aj Devlin MD [address] [place] [phone] Anxiety disorder, unspecified type (Primary Dx); Post-traumatic stress disorder, unspecified; Unspecified lack of expected normal physiological development in childhood; Cerebral palsy, unspecified type (CMS/HCC V24, CMS/HCC V28); Mild intellectual disabilities; Atrioventricular block, complete (CMS/HCC V24, CMS/HCC V28); Benign neoplasm of liver; Other specified diseases of liver; Hypoglycemia, unspecified Social History Tobacco Use Types Packs/Day Years Used Date Smoking Tobacco: Never Smokeless Tobacco: Never Alcohol Use Standard Drinks/Week Comments No 0 (1 standard drink = 0.6 oz pur e alcohol) Comments No Sex and Gender Information Value Date Recorded Sex Assigned at Not on file Legal Sex Female 8:41 PM EST Gender Identity Not on file Sexual Orientation Not on file documented as of this encounter Progress Notes * Brandy Allison MA - 12/01/2024 3:58 PM EDT Start of Care Date: 11/09/24 Date of certification period: 11/09/24-01/07/25 Date of service = signature date 11/23/24 Hospice patient: no Home [facility] ORDER [id number] Recertification Code [id number] Initial Code G0180 documented in this encounter Plan of Treatment Upcoming Encounters Date Type Department Care Team (Late st Contact Info) Description 12/13/2024 9:00 AM EDT Lab Draw Station - [address] 12/22/2024 2:45 PM EDT Office Visit Endocrinology - [address] [phone] Marybeth Gonzalez PA [address] [place] [phone] 04/30/2025 3:00 PM EDT Office Visit Internal Medicine - [address] [phone] Rosanna Lu NP [address] [place] [address] documented as of this encounter Visit Diagnoses Diagnosis Anxiety disorder, unspecified type- Primary Post-traumatic stress disorder, unspecified Unspecified lack of expected normal physiological development in childhood Cerebral palsy, unspecified type (CMS/HCC V24, CMS/HCC V28) Mild intellectual disabilities Atrioventricular block, complete (CMS/HCC V24, CMS/HCC V28) Atrioventricular block, complete Benign neoplasm of liver Benign neoplasm of liver and biliary passages Other specified diseases of liver Hypoglycemia, unspecified documented in this encounter Care Teams Consultant In Ergonomics And Safety Relationship Specialty Start Date End Date Aj Devlin MD [address] [place] [phone] PCP - General Internal Medicine 05/20/16 documented as of this encounter
--- OUTSIDE RECORDS SUMMARY | 2024-12-06 15:01 | XMS_ITS | Encounter Summary ---
Author Organization [facility] Address [address] [place] [address] Care Team Providers Care Fire Prevention Engineer Name Role Phone Aj Devlin MD Primary Care Provider [phone] Reason for Visit * Reason Onset Date Comments Faxed Order 11/16/2024 [facility] ([id number]) Encounter Details Date Type Department Care Team (Late st Contact Info) Description 11/16/2024 Telephone [facility] [address] [place] [phone] Aj Devlin MD [address] [place] [address] Faxed Order ([facility] ([id number])) Social History Tobacco Use Types Packs/Day Years [...] as of this encounter Progress Notes * Alana Lake MA - 12/04/2024 4:17 PM EDT Signed and hand manually faxed back on 12/01/2024 . KA RMA * Kirsten Villeda - 11/30/2024 1:56 PM EDT 2nd request received * Kirsten Villeda - 11/16/2024 3:07 PM EDT Orders from [facility] placed in Aj Devlin MD bin. Please complete and fax back to [phone]. Thank you. documented in this encounter Plan of Treatment Upcoming Encounters Date Type Department Care Team (Late st Contact Info) Description 12/13/2024 9:00 AM EDT Lab Draw Station - [address] 12/22/2024 2:45 PM EDT Office Visit Endocrinology - [address] [phone] Marybeth Gonzalez PA [address] [place] [phone] 04/30/2025 3:00 PM EDT Office Visit [facility] Medicine - [facility] [address] [place] [address] Rosanna Lu NP [address] [place] [phone] documented as of this encounter Visit Diagnoses Not on filedocumented in this encounter Care Teams Fire Prevention Engineer Relationship Specialty Start Date End Date Aj Devlin MD [address] [place] [id number] PCP - General Internal Medicine 05/20/16 documented as of this encounter
--- OUTSIDE RECORDS SUMMARY | 2024-12-06 15:01 | XMS_ITS | Clinical Summary ---
Author Organization [facility] [address] [facility] Building Address [address] [place] [address] Phone Care Team Providers Care Electrical Integrator Name Role Phone Aj Devlin MD Primary Care Provider [phone] Allergies Active Allergy Reactions Criticality Noted Date Comments Propofol 05/28/2021 Medications hydrOXYzine HCL (ATARAX) 25 mg tablet Take 1 tablet (25 mg total) by mouth 1 (one) time each day. In PM 4 Active UNABLE TO FIND Blood Glucose Calibration (FreeStyle Control Solution) Liquid, USE TO CALIBRATE METER 3 Active UNABLE TO FIND Nutritional Supplements (Glucose Management) Tab, Take 4 Tablets by mouth as needed for Other (hypoglycemia). 2 Active propranoloL (INDERAL) 10 mg tablet Take 1 tablet (10 mg total) by mouth 2 (two) times a day. 4 Active blood sugar diagnostic (FreeStyle Lite Strips) test stripIndicatio ns:Elevated blood sugar Use as instructed 100 each 1 5 Active freestyle (FreeStyle Lancets) 28 gauge lancets Check sugars as directed upto 2 times a day 200 each 1 5 Active traZODone (DESYREL) 50 mg tablet Take 1 tablet (50 mg total) by mouth at bedtime. Active melatonin 3 mg tablet Take 2 tablets (6 mg total) by mouth at bedtime. Active blood-glucose meter kitIndications :Elevated blood sugar Use daily or as directed for monitoring of diabetes. Freestyle lite meter. 1 each 5 Active WALKER MISC 1 Units by Does not apply route daily. 1 12/06/19 25 Discontin ued(Thera py completed ) acetaminophen (TYLENOL) 325 mg tablet Take 650 mg by mouth every 4 hours as needed for Pain. NTE 3g in 24 hrs 12/06/19 25 Discontin ued(Thera py completed ) blood-glucose meter kitIndications :Elevated blood sugar Use daily or as directed for monitoring of diabetes. Freestyle lite meter. 1 each 5 11/23/19 25 Discontin ued(Reord er) escitalopram (LEXAPRO) 10 mg tablet Take 1 tablet (10 mg total) by mouth 1 (one) time each day. 12/06/19 25 Discontin ued(Thera py completed ) Active Problems Problem Noted Date Diagnosed Date Severe episode of recurrent major depressive disorder, without psychotic features (CMS/HCC V24, CMS/HCC V28) 10/27/2024 PTSD (post-traumatic stress disorder) 10/27/2024 Developmental delay 05/25/2024 Overview (05/25/2024): Per neuro, consistent with cerebral palsy Focal nodular hyperplasia of liver 01/06/2022 Overview (05/25/2024): CT abd on 07/10/2020 incidentally revealed a 6 cm ill-defined low-attenuation lesion in the right lobe of the liver She can't get an MRI done because she has a pacemaker She had an abd US 07/16 which showed the 5.3 cm echogenic mass. No pancreatic pathology. It was recommended that she undergo a PET scan but this was not covered by insurance nuclear liver scan which was done on 08/08/2020 and revealed focal nodular hyperplasia. Size not measured. Hepatic adenoma 01/06/2022 Hypoglycemia 08/27/2020 Complete heart block (CMS/HCC V24, CMS/HCC V28) 09/14/2017 Overview (05/25/2024): (03/04/18): normal pacemaker device. PPM implanted Anxiety 08/01/2014 Overview (05/25/2024): [facility] at the [facility] Mild intellectual disability 05/31/2008 Resolved Problems Problem Noted Date Diagnosed Date Resolved Date Cardiac pacemaker in situ 12/16/2005 Overview (05/25/2024): Cardiology at [facility] Encounters Date Type Department Care Team Description 12/05/2024 2:45 PM EDT Office Visit Endocrinology [address] [place] [address] Marybeth Gonzalez PA High blood sugar (Primary Dx) 12/01/2024 Billing Patient Not Present [facility] [address] [place] [address] Aj Devlin MD Anxiety disorder, unspecified type (Primary Dx); Post-traumatic stress disorder, unspecified; Unspecified lack of expected normal physiological development in childhood; Cerebral palsy, unspecified type (CMS/HCC V24, CMS/HCC V28); Mild intellectual disabilities; Atrioventricular block, complete (CMS/HCC V24, CMS/HCC V28); Benign neoplasm of liver; Other specified diseases of liver; Hypoglycemia, unspecified 11/22/2024 Telephone [facility] [address] [place] [address] Aj Devlin MD Faxed Order ( [facility] ([id number])) 11/17/2024 Telephone [facility] [address] [place], [place] [address], [place] [phone] Aj Devlin MD Med Refill 11/16/2024 Telephone [facility] [place] [phone] Aj Devlin MD Faxed Order ([facility] ([id number])) 11/16/2024 Telephone Internal Medicine - [address] [address] Aj Devlin MD Faxed Order ([facility] ([id number])) 11/15/2024 3:30 PM EDT Office Visit Internal Medicine [address] [phone] Kevin Estrada MD Follow-up exam (Primary Dx); Complete heart block (CMS/HCC V24, CMS/HCC V28); Anxiety; Severe episode of recurrent major depressive disorder, without psychotic features (CMS/HCC V24, CMS/HCC V28) 11/09/2024 Telephone Internal Medicine [address] [phone] Aj Devlin MD information needed 11/08/2024 Telephone Internal Medicine [address] [address] Aj Devlin MD VNA ([facility]) 10/31/2024 Telephone Internal [address] [phone] Rosanna Lu NP Referral (Referral for Home Health) 10/27/2024 2:00 PM EDT Office Visit Internal Medicine [address] [phone] Rosanna Lu NP Anxiety (Primary Dx); Mild intellectual disability; Developmental delay; Severe episode of recurrent major depressive disorder, without psychotic features (CMS/HCC V24, CMS/HCC V28); PTSD (post-traumatic stress disorder) 10/16/2024 Telephone Internal Medicine [address] [address] Aj Devlin MD faxed order ([facility]) 09/28/2024 Telephone Internal Medicine - [facility] [address] [place] [address] Aj Devlin MD vna call from Last 3 Months Immunizations Name Administration Dates Next Due Influenza Quadravalent, MDCK , 0.5ml, preservative free (Flucelvax) 6mo and older 08/25/2023,05/27/2022,06/12/2019 Influenza trivalent, 0.5mL, preservative free (Fluarix; FluLaval; Fluzone) ages 6mo and older (Afluria) 3 years and older 05/21/2021,06/03/2016,08/01/2014 Influenza trivalent, MDCK, 0 .5mL, preservative free (Flucelvax) 6mo and older 08/03/2024 PPD Test 04/16/2017 Tb Skin Test 12/15/2017 Td Tetanus diptheria (Tdvax) 7yo and older 10/07 Tdap Tetanus diptheria acell ular pertussis (Boostrix; Adacel) 7yo and older 01/06/2007 Surgical History Surgery Date Site/Laterality Comments PACEMAKER IMPLANT PROCEDURE: HISTORICAL PACEMAKER; COMMENT: battery changed in 2007 and replaced in 04/2014 Medical History Medical History Date Comments Cardiac pacemaker in situ 12/16/2005 DX:Car diac pacemaker in situ Developmental delay DX:Developme ntal delay Anxiety 08/01/2014 DX:Anxiety; COMM ENT: [facility]ing Reza at the [facility] Complete heart block (CMS/HC C V24, CMS/HCC V28) 09/14/2017 DX:Complete heart block (HCC ); COMMENT: PPM implanted Mild intellectual disability 05/31/2008 DX: Mild intellectual disability COVID-19 virus infection 10/10/2020 DX:COVI D-19 virus infection Family History Medical History Relation Name Comments Other: lupus Mother Diabetes Paternal Grandfather Breast cancer Paternal Grandmother Relation Name Status Comments Mother Paternal Grandfather Paternal Grandmother Social History Tobacco Use Types Packs/Day Years [...] on file Sexual Orientation Not on file Obstetrics History Last Filed Vital Signs Vital Sign Reading [...] Mass Index 23.34 12/05/2024 2:52 PM EDT Plan of Treatment Upcoming Encounters Date Type Department Care Team (Late st Contact Info) Description 12/13/2024 9:00 AM EDT Lab Draw Station - [address] 12/22/2024 2:45 PM EDT Office Visit Endocrinology - [address] [phone] Marybeth Gonzalez, CATHY [address] [place] [phone] 04/30/2025 3:00 PM EDT Office Visit Internal Medicine - [address] [phone] Rosanna Lu, GRAY [address] [place] [address] Health Maintenance Due Date Last Done Comments Hepatitis B Vaccines (1 of 3 - 19+ 3-dose series) 2005 Pneumococcal Vaccine: Pediatrics (0 to 5 Years) and At-Risk Patients (6 to 64 Years) (1 of 2 - PCV) 2005 Depression Screening 07/11/2022 Social Influencers of Health Screening 07/11/2022 COVID-19 Vaccine (2 - season) 2024 11/06/2020 DTaP,Tdap,and Td Vaccines (3 - Td or Tdap) 10/08/2027 10/07/2017, 01/06/2007 Cholesterol Screening (Lipid Panel) 03/10/2028 03/10/2023 Cervical Cancer Screening: HPV 05/13/2028 05/13/2023 HIV Screening Completed 2023, 2023 Hepatitis C Screening Completed 2023 Influenza Vaccine Completed 08/03/2024, , 04/15/2023, Additional history exists HIB Vaccines Aged Out No longer eligi ble based on patient's age to complete this topic HPV Vaccines Aged Out No longer eligi ble based on patient's age to complete this topic Hepatitis A Vaccines Aged Out No long er eligible based on patient's age to complete this topic IPV Vaccines Aged Out No longer eligi ble based on patient's age to complete this topic MMR Vaccines Aged Out No longer eligi ble based on patient's age to complete this topic Meningococcal ACWY Vaccine Aged Out N o longer eligible based on patient's age to complete this topic Meningococcal B Vaccine Aged Out No l onger eligible based on patient's age to complete this topic RSV Immunization Patients Under 20 months Aged Out No longer eligible based on patient's age to complete this topic Varicella Vaccines Aged Out No longer eligible based on patient's age to complete this topic Procedures Procedure Name Priority Date/Time Associated Diagnosis Comments POC GLUCOSE Routine 12/05/2024 2:56 PM EDT High blood sugar EXTERNAL DIABETIC RETINA EYE EXAM 11/01/2024 HEPATITIS C SCREENING Routine 2023 HIV SCREENING Routine 2023 HPV Routine 05/13/2023 LIPID PANEL Routine 03/10/2023 from Last 3 Months or Most Recently Relevant to Health Maintenance Results * POC glucose manually resulted (12/05/2024 2:56 PM EDT) [facility] Glucose POC 102 mg/dL Comment:non fasting Blood Capillary blood specimen / Unknown 12/05/2024 2:56 PM EDT Result [facility] Marybeth MORGAN POINT OF CARE TEST ENTER/ED IT ORDERABLES Final Result * External Diabetic Retina Eye Exam Report (11/01/2024) Anatomical Region Laterality Modality Ultrasound Provider [facility] IMG US PROCEDURES Final Result * HIV Screening (2023) [facility] HIV Screening abstracted Result [facility] Historical Provider HEALTH MAINTENANCE Final Result * Hepatitis C Screening (2023) [facility] Hepatitis C Screening abstracted Result [facility] Provider HEALTH MAINTENANCE Final Result * Cervical Cancer Screening: HPV (05/13/2023) [facility] Cervical Cancer Screening: HPV abstracted, negative Result [facility] Historical Provider HEALTH MAINTENANCE Final Result * Lipid panel (03/10/2023) [facility] LDL/HDL Ratio 2 0 - 4 Triglycerides 66 0 - 150 mg/dL Cholesterol 151 0 - 200 mg/dL HDL 69 >=40 mg/dL LDL Cholesterol 69 0 - 100 mg/dL Blood Venous blood specimen / Unknown Result [facility] Historical Provider LAB BLOOD ORDERABLES Tami l Result from Last 3 Months or Most Recently Relevant to Health Maintenance Insurance [facility] Care Teams Electrical Integrator Relationship Specialty Start Date End Date Aj Devlin MD [address] [place] [address] PCP - General Internal Medicine 05/20/16
--- OUTSIDE RECORDS SUMMARY | 2024-12-06 15:01 | XMS_ITS | Encounter Summary ---
Author Organization [facility] Address [address] [place] [address] Care Team Providers Care Iuss Acoustic Analyst Name Role Phone Aj Devlin MD Primary Care Provider [phone] Reason for Visit * Reason Onset Date Comments Faxed Order 11/16/2024 [facility] ([id number]) Encounter Details Date Type Department Care Team (Late st Contact Info) Description 11/16/2024 Telephone [facility] [address] [place] [phone] Aj Devlin MD [address] [place] [phone] Faxed Order ([facility] ([id number])) Social History Tobacco Use Types Packs/Day Years [...] Notes * Alana Lake [place] - 12/04/2024 4:14 PM EDT Signed and hand manually faxed back on 12/01/2024 . KA RMA * Kirsten Villeda - 11/30/2024 1:56 PM EDT 2nd request received * Kirsten Villeda - 11/16/2024 3:07 PM EDT Orders from [facility] placed in Aj Devlin MD bin. Please complete and fax back to [phone]. Thank you. documented in this encounter Plan of Treatment Upcoming Encounters Date Type Department Care Team (Late st Contact Info) Description 12/13/2024 9:00 AM EDT Lab Draw Station - [address] 12/22/2024 2:45 PM EDT Office Visit Endocrinology - [address] [phone] Marybeth Gonzalez PA [address] [place] [phone] 04/30/2025 3:00 PM EDT Office Visit Internal Medicine - [facility] [address] [place] [address] Rosanna Lu NP [address] [place] [phone] documented as of this encounter Visit Diagnoses Not on filedocumented in this encounter Care Teams Iuss Acoustic Analyst Relationship Specialty Start Date End Date Aj Devlin MD [address] [place] [address] PCP - General Internal Medicine 05/20/16 documented as of this encounter
--- OUTSIDE RECORDS SUMMARY | 2024-12-06 15:01 | XMS_ITS | Data Portability ---
Author Organization [place] [facility] Address [address] [place] [phone] Care Team Providers Care Helicopter Specialist Name Role Phone DAVIONLUDIVINA Primary Care Provider Assessment Encounter Date Assessment Date Assessment LastModified by Organization Details LastModified Time 10/07/2020 10/07/2020 Overview/History :This is a 34-year-old female that [facility] evaluation, she has been having symptoms concerning for possible COVID since 2:30 a.m. last night. She is reported cough, sore throat and runny nose. She has been taking [id number] Cough medication and staying well hydrated with sports drinks. Exam: On exam patient is awake alert she has a low-grade fever but as he went and MAC stable. Lungs clear to auscultation bilaterally. No erythema in her oropharynx, no exudates. No lymphadenopathy. DDx considered, but not limited to:Her symptoms of fever, cough and sore throat are consistent with viral upper respiratory tract infection versus viral pharyngitis. COVID-19 is considered given her possible exposure someone who is positive. Pneumonia unlikely as patient has clear breath sounds bilaterally. Work up/Results:COVID -19 swab is pending. Plan/Discussion: I discussed with the patient that she should continue to stay well hydrated. I have advised her to take bmkh-nwl-ergtwcy medication for her cough as she has been doing and also to treat her low grade fevers with [id number] Tylenol. I did explain that her COVID tests would be back in the next 3-5 days and that she will get a phone call with those results. She verbalized understanding of discharge instructions. In order to obtain further information and compare any laboratory results/values, I have accessed patient records on the [employer] [facility]. This information was pertinent in my medical decision making today. Time On Scene with Patient: 00:22:05 Proper Personal Protective Equipment (PPE), including gloves, eye protection, N95 mask, gown, and shoe covers were donned and doffed appropriately and all equipment cleaned using approved technique with germicidal disposable wipes prior to and after care of this patient according to [facility]'s infection prevention protocols. [email or web address] Not available 10/07/2020 18:02:17 Plan of Treatment Reminders Order Date Submit Date Provider Last Modified By Organization Details Last Modified Time Details Appointments None recorded. Lab SARS CoV 2 RNA (COVID-19), QL, community midwife-PCR, respiratory specimen 2020 [email or web address] [facility] (Centralized Electronic Ordering - All Locations), Patient Can Go To The Location Of Their Choice, [id number] 09:20:29 Referral None recorded. Procedures None recorded. Surgeries None recorded. Imaging None recorded. Medication Orders acetaminoph en 325 mg tablet 2020 021 [id number] [email or web address] [id number], [address] [place], [address], 17:43:02 Patient TargetsNo targets recorded. Patient InstructionsNo instructions recorded. Reason for Referral None Reported. Results Created Date Observation Date Name Description Value Unit Range Abnormal Flag Note LastModifiedBy Organization Detail LastModifiedTime 10/08/1910/08/2020 covid -19 (nove l coron aviru s) PCR covid-19 PCR specimen source NASAL Not Available [facility] (Centralized Electronic Ordering - All Locations) Patient Can Go To The Location Of Their Choice, [id number] 10/09/2020 07:40:48 10/08/1910/09/2020 covid -19 (nove l coron aviru s) PCR covid-19 PCR result (neg) abnormal POSIT [place] Posit [place] for detec tion of 2019- novel Coron aviru s (2018 -nCoV ) by RT-PC Esthela lincoln to the [facility]. All test resul ts must be corre lated with clini adria findi ngs. This test has been autho rized by the FDA under an Emerg ency Use Autho rizat ion (EUA) for use by fam valiente atori es. Testi ng perfo rmed on the Holog ic Panth er Aptim a assay utili zing trans cript ion-m ediat ed ampli ficat ion (TMA) . Not Available [facility] (Centralized Electronic Ordering - All Locations) Patient Can Go To The Location Of Their Choice, [id number] 10/09/2020 07:40:48 Result Notes None recorded. Medical Equipment None Reported. Allergies No known drug allergies Medications Name Sig Start Date Stop Date Status Note LastModified by Organization Details LastModified Time acetaminophe n 325 mg tablet 650 mg PO administere d on scene. Time administere d:1730 2020 active Not Available Not Available Not Avai lable FreeStyle Lancets 28 gauge USE DIRECTED TWICE A DAY active Not Available Not Available Not Available glucose 4 gram chewable tablet TAKE 4 TABS BY MOUTH NEEDED FOR HYPOGLYCEMI A (INS PAYS FOR 30 TABS/ 30 DAYS) active Not Available Not Available No t Available mirtazapine 15 mg tablet TAKE 1 TABLET BY MOUTH EVERY DAY AT NIGHT active Not Available Not Available No t Available hydroxyzine HCl 10 mg tablet TAKE 1 TABLET BY MOUTH EVERY DAY EVERY AFTERNOON active Not Available Not Available No t Available FreeStyle Lite Strips USE DIRECTED TWICE A DAY active Not Available Not Available Not Available FreeStyle [place] Lite kit USE TO TEST BLOOD SUGARS TWICE A DAY FREESTYLE FREEDOM active Not Available Not Available No t Available Baqsimi 3 mg/actuation nasal spray PLEASE SEE ATTACHED FOR DETAILED DIRECTIONS active Not Available Not Available N ot Available Vitals Date Recorded Respiratory rate Heart rate Oxygen saturation Oxygen saturation in Arterial blood by Pulse oximetry Body temperature Systolic blood pressure Diastolic blood pressure Provider Name and Address Organization Details Last Updated DateTime 1 18 /min 78 /min 98 % 98 % 99.6 [degF] 124 mm[Hg] 78 mm[Hg] Not Available [facility] 18:08:46 Social History None recorded. Functional Status None recorded. Mental Status None recorded. Family History Nothing Reported. Medical History No medical history recorded. Gynecological HistoryNo gynecological history recorded. Obstetrics History GPAL:G 0 P 0 0 0 0 Past Encounters Encounter ID Performer Location Encounter Start Date Encounter Closed Date Diagnosis/Indication Diagnosis SNOMED-CT Code Diagnosis ICD10 Code Diagnosis Note [id number] MARYLIN MCGRAW NP [facility] [address] [facility] [phone] 10/07/2020 17:13:05 10/10/2020 12:49:44 Viral upper respiratory tract infection 877321997 J06.9 Exposure t o communicable disease 940592244 Z20.822 Health Concerns Section Related Observation LastModified by Organization Detai ls LastModified Time None Recorded Concern Status LastModified by Organization Details LastModified Time None Recorded Advance Directives Directive None Recorded Payers Insurance Date Sequence Insurance Name Policy Number Policy Negro Covered Member ID Negro Member ID Guarantor Name 10/07/2020 1 *SELF PAY* Jacquelinekarthikeyan Hawkins [id number] Jacqueline Brennane Ross 10/10/2020 1 [place] Jacqueline A Ross [id number] Jacqueline Brennane Ross 10/16/2020 1 [facility] NET PLAN (MEDICAID HMO) [place] Jacqueline A Ross [id number] Jacquelinekarthikeyan Brennane Ross 10/10/2020 1 [facility] HE[facility] NET PLAN (MEDICAID HMO) [place] Jacqueline A Ross [id number] Jacqueline Brennane Ross 10/16/2020 2 [place] Jacqueline A Ross [id number] Jacqueline Malika Ross 10/16/2020 2 [place] Jacqueline A Ross [id number] Jacqueline Brennane Ross 10/16/2020 1 [facility] HEALTH NET PLAN (MEDICAID HMO) [place] Jacqueline A Ross [id number] Jacqueline Malika Ross 10/16/2020 1 [place] Jacqueline A Ross [id number] Jacqueline Malika Ross 10/16/2020 2 [place] Jacqueline A Ross [id number] Jacqueline Malika Ross 10/16/2020 1 [facility] HEALTH NET PLAN (MEDICAID HMO) [place] Jacqueline A Ross [id number] Jacqueline Hawkins Notes Date Note Type Note Provider Name and Address Organization Details Recorded Time 10/07/2020 text/html This is a 34-year-old female patient [facility]. 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 She also has some mild developmental delay. She contacted [facility] as she began to have symptoms of cough, sore throat and runny nose last night. She tells me that there is someone in her apartment building that recently tested positive for COVID-19. She wanted to be tested so that she is able to continue to attend her day care program. She has been using Delsym with good relief of her cough. MARYLNI MCGRAW NP [facility] Shayna Aaron, [place], [address], [place] [facility] 10/07/2020 18:11:08 OBGyn Episode No OBEpisode recorded.
== END 2024-12-06 13:44 | disposition home or self-care (01) ==
LOC: HO.NEURO 13:43
PROVIDERS: PCP Internal Medicine; Visit Provider Physical Medicine & Rehabilitation
DX: G80.1 Spastic diplegic cerebral palsy (principal)
CPT/HCPCS: 64642; 64643; 95874; J0585

== ENCOUNTER 2025-02-28 15:34 | Outpatient (AMB) | payer OTHER, SELFPAY ==
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
[2025-02-28 15:36] VITALS: BP 80/50; PULSE 81; O2SAT 97; BMI 21.9
--- OUTSIDE RECORDS SUMMARY | 2025-02-28 16:14 | XMS_ITS ---
Author Name [facility] Organization Unknown Care Team Organization Name Specialty Phone Email Start Date End Da te [facility] Aj Devlin Primary [facility] 06/09/2022 03/20/2024
== END 2025-02-28 16:02 | disposition home or self-care (01) ==
LOC: HO.HSMS 15:35
PROVIDERS: PCP Internal Medicine; Visit Provider Psychiatry & Neurology Neurology
DX: G82.20 Paraplegia, unspecified (principal); G25.2 Other specified forms of tremor
CPT/HCPCS: 99214; G2211

== ENCOUNTER → 2025-02-28 15:34 | Outpatient (BNVA) | payer OTHER, SELFPAY | PROVIDERS: PCP Internal Medicine; Visit Provider Psychiatry & Neurology Neurology | DX: R42 Dizziness and giddiness (principal); G25.2 Other specified forms of tremor; G82.20 Paraplegia, unspecified; I95.1 Orthostatic hypotension | CPT/HCPCS: 99212 ==

== ENCOUNTER 2025-03-29 12:08 | Outpatient (REF) | payer OTHER, SELFPAY ==
--- NOTE | ~2025-03-29 | XR_ITS ---
EXAMINATION: XR TIBIA AND FIBULA, bilateral CLINICAL INFORMATION: R26.9 - Unspecified abnormalities of gait and mobility COMPARISON: None available. TECHNIQUE: AP and lateral views of the both tibia and fibula were obtained. FINDINGS: No acute cortical disruption. No lytic or blastic lesions. No periosteal bone reaction. Mild osteoarthrosis in the lateral compartment both knees. XR/XR Tibia Fibula Gavin 2V IMPRESSION: No acute fracture. Lateral compartment osteoarthritis/osteoarthrosis, mild bilaterally. Electronically signed by: Jose Luis Kearney MD 03/29/2025 01:51 PM EDT
--- NOTE | ~2025-03-29 | XR_ITS ---
EXAMINATION: XR LUMBOSACRAL SPINE CLINICAL INFORMATION: M54.9 - Dorsalgia, unspecified COMPARISON: None available. TECHNIQUE: AP and lateral views FINDINGS: No acute cortical disruption or malalignment. No lytic or blastic lesions. Mild levoconvex curvature. Elevated leads from a pacemaker no fully included in the [id number]. XR/XR lumbar spine 2-3V IMPRESSION: No acute fracture or listhesis. Electronically signed by: Jose Luis Kearney MD 03/29/2025 01:49 PM EDT
--- NOTE | ~2025-03-29 | XR_ITS ---
Exam: Single view of the bilateral femurs TECHNIQUE: AP view bilateral femurs INDICATION: R26.9 - Unspecified abnormalities of gait and mobility Prior: None FINDINGS: The proximal end of the femurs is demonstrated on hip x-ray performed same day. Right femur demonstrates no gross abnormality. There is mild narrowing of medial and lateral knee joint space. Left femur: No gross abnormality. There is mild narrowing of the medial and lateral joint spaces in the knee with marginal osteophytes along the lateral joint Elliptical density projecting in the lateral intercondylar notch probably represents a large phlebolith. XR/XR Femur Gavin 1V IMPRESSION: Mild osteoarthritis, bilateral knees. No gross abnormality of the femurs. Limited exam with frontal views only. Electronically signed by: Janes Christianson MD 03/29/2025 02:06 PM EDT
--- NOTE | ~2025-03-29 | XR_ITS ---
EXAMINATION: XR BILATERAL HIPS WITH AP PELVIS CLINICAL INFORMATION: M25.559 - Pain in unspecified hip COMPARISON: None available. TECHNIQUE: AP and oblique views both hips. FINDINGS: No acute cortical disruption or gross malalignment. No lytic or blastic lesions. No metallic or radiopaque foreign body. Preservation of the joint spaces, both coxofemoral joints. XR/XR hips FITZ min 3V IMPRESSION: No acute fracture or dislocation. Negative exam. Electronically signed by: Jose Luis Kearney MD 03/29/2025 01:53 PM EDT
--- OUTSIDE RECORDS SUMMARY | 2025-03-29 13:18 | XMS_ITS | Encounter Summary ---
Author Organization [facility] Address [address] [place] [address] Care Team Providers Care Cork Slabs Sawyer Name Role Phone Aj Devlin MD Primary Care Provider [phone] Encounter Details Date Type Department Care Team Description 08/04/2021 Telephone Gastroenterology - [place] [address] [facility] [address] [place] [address] Katty Cotto MD Social History Tobacco Use Types Packs/Day Years Used Date Smoking Tobacco: Never Smokeless Tobacco: Never Alcohol Use Standard Drinks/Week Comments No 0 (1 standard drink = 0.6 oz pur e alcohol) Sex Assigned at Date Recorded Not on file Job Start Date Occupation Industry Not on file Not on file Not on file COVID-19 Exposure Response Date Recorded In the last month, have you been in contact with someone who was confirmed or suspected to have Coronavirus / COVID-19? No / Unsure 07/28/2021 10:41 AM EST documented as of this encounter Miscellaneous Notes * Telephone Encounter - Katty Cotto MD - 08/04/2021 11:45 AM EST Liver lesion stable x 2 years. No further work up recommended. documented in this encounter Plan of Treatment Not on file documented as of this encounter Visit Diagnoses Not on filedocumented in this encounter Care Teams Cork Slabs Sawyer Relationship Specialty Start Date End Date Aj Devlin MD [address] [place] [address] PCP - General Internal Medicine 05/20/16 documented as of this encounter
--- OUTSIDE RECORDS SUMMARY | 2025-03-29 13:18 | XMS_ITS | Encounter Summary ---
Author Organization [facility] Address [address] [place] [address] Care Team Providers Care Community Life Director Name Role Phone Aj Devlin MD Primary Care Provider [phone] Reason for Visit * Reason Onset Date Comments refill request 10/03/2021 Encounter Details Date Type Department Care Team Description 10/03/2021 Refill Adult Medicine B - [address] [address] Aj Devlin MD [address] [place] [address] refill request Social History Tobacco Use Types Packs/Day Years [...] have Coronavirus / COVID-19? No / Unsure 09/23/2021 1:49 PM EST documented as of this encounter Miscellaneous Notes * Telephone Encounter - Arlyn Frankel C.M.A. - 10/03/2021 3:30 PM EST Kim 07/22/21 No pended appt Lab Results Component Value Date NA 141 07/22/2021 K 4.2 07/22/2021 CO2 28 07/22/2021 CL 106 07/22/2021 BUN 10 07/22/2021 CREAT 0.78 07/22/2021 GLU 70 07/22/2021 CA 9.2 07/22/2021 GFR > 60 07/22/2021 Lab Results Component Value Date HGBA1C 5.4 07/22/2021 CHOL 138 07/22/2021 LDL 61 07/22/2021 HDL 66 07/22/2021 TRIG 56 07/22/2021 GLU 70 07/22/2021 CREAT 0.78 07/22/2021 * Telephone Encounter - Brigitte Watkins - 10/03/2021 2:47 PM EST Patient would like script to be: E-PRESCRIBED/FAXED TO PHARMACY When was the patients last office visit in Adult Medicine?: 07/22/21 When was the last time the patient saw their PCP? 05/29/20 Does patient have an upcoming appointment? no (THE MEDICATION IS NOT ON THE MED LIST AND IS IDENTIFIED BELOW): {MED LIST:71813) Med name: Nutritional Supplements (GLUCOSE MANAGEMENT) Tab Dosage: # of tablets: Local pharmacy with request for 90 -day supply Instructions: Take 4 Tabs by mouth as needed for Other (hypoglycemia). Did you check the pharmacy information above?: YES Patients current insurance carrier: Payor: [employer] FFS / Plan: [employer] / Product Type: MEDICAID RISK documented in this encounter Plan of Treatment Not on file documented as of this encounter Visit Diagnoses Diagnosis Hypoglycemia Hypoglycemia, unspecified Glucose intolerance (impaired glucose tolerance) Impaired glucose tolerance test documented in this encounter Care Teams Community Life Director Relationship Specialty Start Date End Date Aj Devlin MD [address] [place] [address] PCP - General Internal Medicine 05/20/16 documented as of this encounter
--- OUTSIDE RECORDS SUMMARY | 2025-03-29 13:19 | XMS_ITS | Encounter Summary ---
Author Organization [facility] Address [address] [place] [address] Care Team Providers Care Senior Payroll Administrator Name Role Phone Aj Devlin MD Primary Care Provider [phone] Encounter Details Date Type Department Care Team Description 03/04/2018 Incoming Correspondence Medical Records [address] [place] [address] Pebbles [place] Social History Tobacco Use Types Packs/Day Years Used Date Smoking Tobacco: Never Smokeless Tobacco: Never Alcohol Use Standard Drinks/Week Comments No 0 (1 standard drink = 0.6 oz pur e alcohol) Sex Assigned at Date Recorded Not on file Job Start Date Occupation Industry Not on file Not on file Not on file documented as of this encounter Plan of Treatment Not on file documented as of this encounter Visit Diagnoses Not on filedocumented in this encounter Care Teams Senior Payroll Administrator Relationship Specialty Start Date End Date Aj Devlin MD [address] [place] [address] PCP - General Internal Medicine 05/20/16 documented as of this encounter
--- OUTSIDE RECORDS SUMMARY | 2025-03-29 13:19 | XMS_ITS | Encounter Summary ---
Author Organization [facility] Address [address] [place] [address] Care Team Providers Care Women'S Swim Coach Name Role Phone Aj Devlin MD Primary Care Provider [phone] Encounter Details Date Type Department Care Team Description 08/24/2017 Incoming Correspondence Medical Records [address] [place] [address] Vascular, [facility] And [address] [place] [address] Social History Tobacco Use Types Packs/Day Years [...] on filedocumented in this encounter Care Teams Women'S Swim Coach Relationship Specialty Start Date End Date Aj Devlin MD [address] [place] [address] PCP - General Internal Medicine 05/20/16 documented as of this encounter
--- OUTSIDE RECORDS SUMMARY | 2025-03-29 13:19 | XMS_ITS | Encounter Summary ---
Author Organization [facility] Address [address] [place] [address] Care Team Providers Care Tub Operator Name Role Phone Aj Devlin MD Primary Care Provider [phone] Encounter Details Date Type Department Care Team Description 09/15/2019 Incoming Correspondence Medical Records [address] [place] [address] Vascular, [facility] And [address] [place] [address] Social History Tobacco Use Types Packs/Day Years [...] on filedocumented in this encounter Care Teams Tub Operator Relationship Specialty Start Date End Date Aj Devlin MD [address] [place] [address] PCP - General Internal Medicine 05/20/16 documented as of this encounter
--- OUTSIDE RECORDS SUMMARY | 2025-03-29 13:19 | XMS_ITS | Encounter Summary ---
Author Organization [facility] Address [address] [place] [address] Care Team Providers Care Malted Milk Masher Name Role Phone Aj Devlin MD Primary Care Provider [phone] [phone] Encounter Details Date Type Department Care Team Description 08/21/2020 Orders Only Endocrinology - [address] [address] Colton Kaplan PA-C Liver lesion, right lobe Social History Tobacco Use Types Packs/Day Years [...] have Coronavirus / COVID-19? No / Unsure 08/15/2020 1:23 PM EST documented as of this encounter Plan of Treatment Not on file documented as of this encounter Procedures Procedure Name Priority Date/Time Associated Diagnosis Comments NUCLEAR SCAN OF LIVER SPLEEN Routine 08/08/2020 Liver lesion, right lobe documented in this encounter Results * NUCLEAR SCAN OF LIVER SPLEEN (08/08/2020) Colton Kaplan PA-C NUCLEAR documented in this encounter Visit Diagnoses Diagnosis Liver lesion, right lobe Other specified disorders of liver documented in this encounter Care Teams Malted Milk Masher Relationship Specialty Start Date End Date Aj Devlin MD [address] [place] [address] PCP - General Internal Medicine 05/20/16 documented as of this encounter
--- OUTSIDE RECORDS SUMMARY | 2025-03-29 13:19 | XMS_ITS | Encounter Summary ---
Author Organization [facility] Address [address] [place] [address] Care Team Providers Care Milling Machine Tender Name Role Phone Aj Devlin MD Primary Care Provider [phone] Encounter Details Date Type Department Care Team Description 08/27/2016 Incoming Correspondence Medical Records [address] [place] [address] Yvette Goodwin Social History Tobacco Use Types Packs/Day Years [...] on filedocumented in this encounter Care Teams Milling Machine Tender Relationship Specialty Start Date End Date Aj Devlin MD [address] [place] [address] PCP - General Internal Medicine 05/20/16 documented as of this encounter
--- OUTSIDE RECORDS SUMMARY | 2025-03-29 13:19 | XMS_ITS | Encounter Summary ---
Author Organization [facility] Address [address] [place] [address] Care Team Providers Care Hospital Secretary Name Role Phone Aj Devlin MD Primary Care Provider [phone] Reason for Visit * Reason Onset Date Comments Information Needed 03/12/2023 Encounter Details Date Type Department Care Team Description 03/12/2023 Telephone Medicine/Pediatrics - [address] [address] Aj Devlin MD [address] [place] [address] Information Needed Social History Tobacco Use Types Packs/Day Years Used Date Smoking Tobacco: Never Smokeless Tobacco: Never Alcohol Use Standard Drinks/Week Comments No 0 (1 standard drink = 0.6 oz pur e alcohol) Sex Assigned at Date Recorded Not on file Job Start Date Occupation Industry Not on file Not on file Not on file COVID-19 Exposure Response Date Recorded In the last 10 days, have yo u been in contact with someone who was confirmed or suspected to have Coronavirus/COVID-19? No / Unsure 03/10/2023 3:26 PM EDT documented as of this encounter Miscellaneous Notes * Telephone Encounter - Padmaja Robert - 03/12/2023 3:01 PM EDT Information Needed Who is calling: Other Adult Day Health Information being requested? Paperwork showing the pt has a new DX of cerebral palsy. If other information is needed, was an MANDI signed? NO How is the information to be communicated back to the caller? Faxed to [phone] documented in this encounter Plan of Treatment Not on file documented as of this encounter Visit Diagnoses Not on filedocumented in this encounter Care Teams Hospital Secretary Relationship Specialty Start Date End Date Aj Devlin MD [address] [place] [address] PCP - General Internal Medicine 05/20/16 documented as of this encounter
--- OUTSIDE RECORDS SUMMARY | 2025-03-29 13:19 | XMS_ITS | Encounter Summary ---
Author Organization [facility] Address [address] [place] [address] Care Team Providers Care Coppersmith Helper Name Role Phone Aj Devlin MD Primary Care Provider [phone] [phone] Reason for Referral * Non JEAN MARIE (Urgent) - Authorized/Booked Specialty Diagnoses / Procedures Referred By Estelita murguia Referred To Contact Gastroenterology Procedures REFERRAL TO GASTROENTEROLOGY Marybeth Gonzalez PA-C [address] [place] [address] Gastro [place]/[address] [address] Referral ID Status Reason Start Date Expiration Date V isits Requested Visits Authorized [id number] - Authorized/ Booked 07/11/2020 07/11/2021 1 1 Reason for Visit * Reason Onset Date Comments radiology 07/10/2020 mri testing. Encounter Details Date Type Department Care Team Description 07/10/2020 Telephone MRI - [place] [address] [place] [address] Marybeth Gonzalez PA-C [address] [place] [address] radiology (mri testing.) Social History Tobacco Use Types Packs/Day Years [...] have Coronavirus / COVID-19? No / Unsure 07/10/2020 2:04 PM EST documented as of this encounter Miscellaneous Notes * Telephone Encounter - Sara Tidwell M.A. - 07/12/2020 10:14 AM EST Called and spoke with patient, I informed her with Marybeth hodge. Patient aware and agreed, I informed her if she does not receive a call by Wednesday07/15/20 she should call the office of Marybeth Gonzalez to check status on appts. * Telephone Encounter - Marybeth Gonzalez PA-C - 07/11/2020 2:48 PM EST Please let patient know since MRI not able to be done, we will do US. Also placing referral to gastroenterology. * Telephone Encounter - Martha Morris - 07/11/2020 9:56 AM EST Received a call from [facility]. They are not able to do an Mri. The pacemaker that patient received at [facility] is too old so they are unable to do scan * Telephone Encounter - Martha Morris - 07/10/2020 4:17 PM EST [facility] Auth: [id number] 07/10/20-01/06/21 Order faxed to [facility]. Office will fax back appt date and time * Telephone Encounter - Marybeth Gonzalez PA-C - 07/10/2020 3:50 PM EST I spoke to radiology. External MRI order placed. * Telephone Encounter - Padmini Rivera - 07/10/2020 3:42 PM EST Contacted Jacqueline Hawkins to book her mri abdomen, unfortunately I wasn't able to give her an appointment due past surgerical history, she states she has a pacemaker implanted, so it would be best toplace an external mri order for her to have her test a [facility]. Thanks. Padmini, Mri Department. documented in this encounter Plan of Treatment Not on file documented as of this encounter Results * US SOFT TISSUE ABDOMEN/BACK, LIMITED ABD (07/16/2020 1:50 PM EST) 07/16/2020 1:59 PM EST Impressions [facility] - 07/16/2020 2:26 PM EST IMPRESSION: 1. 5.3 cm echogenic mass right lobe liver differential diagnosis provided in the report. 2. No pancreatic pathology is identified. Narrative [facility] - 07/16/2020 2:26 PM EST Abdomen ultrasound: HISTORY: Right lobe liver lesion on 07/10/[address] COMPARISON: 01/05/2018 abdomen ultrasound, 07/10/[address] with contrast Liver: 5.3 x 4.2 x 2.4 cm irregular echogenic mass subcapsular right lobe not apparent on 01/05/2018 ultrasound and correspond to low-attenuation mass on 07/10/[address] Gallbladder, common bile duct, pancreas and right kidney appear normal. Discussion: Differential diagnosis for a focal echogenic liver lesion includes but not limited to benign liver lesions such as hepatic hemangioma, focal nodular hyperplasia, hepatic adenoma with high fat content, focal fatty change (focal hepatic steatosis). Imaging findings are nonspecific with differential including malignant processes including hepatic metastasis (including metastatic pancreatic endocrine tumor in patient with hypoglycemia) and primary hepatic malignancies. Depending upon clinical suspicion for pancreatic endocrine tumor, additional imaging with endoscopic pancreatic ultrasound or PET/CT could be considered in an attempt to identify pancreatic tumor not identified on CT/ultrasound if cardiac pacemaker precludes MR imaging. Procedure Note Praful Nguyen MD - 07/16/2020 Abdomen ultrasound: HISTORY: Right lobe liver lesion on 07/10/[address] COMPARISON: 01/05/2018 abdomen ultrasound, 07/10/[address] withcontrast Liver: 5.3 x 4.2 x 2.4 cm irregular echogenic mass subcapsular right lobenot apparent on 01/05/2018 ultrasound and correspond to low-attenuation mass on 07/10/2020abdomen CT. Gallbladder, common bile duct, pancreas and right kidney appear normal. Discussion: Differential diagnosis for a focal echogenic liver lesionincludes but not limited to benign liver lesions such as hepatic hemangioma, focal nodularhyperplasia, hepatic adenoma with high fat content, focal fatty change (focal hepatic steatosis).Imaging findings are nonspecific with differential including malignant processes includinghepatic metastasis (including metastatic pancreatic endocrine tumor in patient withhypoglycemia) and primary hepatic malignancies. Depending upon clinical suspicion for pancreatic endocrine tumor,additional imaging with endoscopic pancreatic ultrasound or PET/CT could be considered in anattempt to identify pancreatic tumor not identified on CT/ultrasound if cardiac pacemakerprecludes MR imaging. IMPRESSION IMPRESSION: 1. 5.3 cm echogenic mass right lobe liver differential diagnosis providedin the report. 2. No pancreatic pathology is identified. Marybeth Gonzalez PA-C ULTRASOUND [facility] documented in this encounter Visit Diagnoses Diagnosis Liver lesion- Primary Other specified disorders of liver Liver lesion Other specified disorders of liver documented in this encounter Care Teams Coppersmith Helper Relationship Specialty Start Date End Date Aj Devlin MD [address] [place] [address] PCP - General Internal Medicine 05/20/16 documented as of this encounter
--- OUTSIDE RECORDS SUMMARY | 2025-03-29 13:19 | XMS_ITS | Encounter Summary ---
Author Organization [facility] Address [address] [place] [address] Care Team Providers Care Acquisitions Analyst Name Role Phone Catrachita Grey MD Primary Care Provider Unavailable Zayra Orozco MD Primary Care Provider UnaRegan Beasley MD Primary Care Provider Unavaila Aj Hamm MD Primary Care Provider [phone] Encounter Details Date Type Department Care Team Description 03/23/2014 Apartment Community Assistant Manager Report Medical Records [address] [place] [address] Vascular, [facility] Heart And [address] [place] [address] Social History Tobacco Use Types Packs/Day Years Used Date Smoking Tobacco: Passive Smo ke Exposure - Never Smoker Alcohol Use Standard Drinks/Week Comments No 0 [...] on filedocumented in this encounter Care Teams Acquisitions Analyst Relationship Specialty Start Date End Date Catrachita Grey MD PCP - General 03/17/01 Zayra Orozco MD PCP - General Internal Medicine 04/10/14 05/19/15 Regan Syed MD PCP - General Internal Medicine 05/20/15 05/19/16 Aj Devlin MD [address] [place] [address] PCP - General Internal Medicine 05/20/16 documented as of this encounter
--- OUTSIDE RECORDS SUMMARY | 2025-03-29 13:19 | XMS_ITS | Encounter Summary ---
Author Organization [facility] Address [address] [place] [address] Care Team Providers Care Interior Design Assistant Name Role Phone Aj Devlin MD Primary Care Provider [phone] [phone] Encounter Details Date Type Department Care Team Description 06/03/2021 Orders Only Physiatry - [place] [address] [place] [address] Juice Mcwilliams PA-C Bilateral foot-drop (Primary Dx) Social History Tobacco Use Types [...] have Coronavirus / COVID-19? No / Unsure 05/28/2021 1:38 PM EDT documented as of this encounter Plan of Treatment Not on file documented as of this encounter Procedures Procedure Name Priority Date/Time Associated Diagnosis Comments WALKER WITH SEAT AND HAND BRAKES Routine 06/03/2021 1:42 PM EDT Bilateral foot-drop documented in this encounter Visit Diagnoses Diagnosis Bilateral foot-drop- Primary Other acquired deformity of ankle and foot documented in this encounter Care Teams Interior Design Assistant Relationship Specialty Start Date End Date Aj Devlin MD [address] [place] [address] PCP - General Internal Medicine 05/20/16 documented as of this encounter
--- OUTSIDE RECORDS SUMMARY | 2025-03-29 13:19 | XMS_ITS | Encounter Summary ---
Author Organization [facility] Address [address] [place] [address] Care Team Providers Care Labor Relations Supervisor Name Role Phone Aj Devlin MD Primary Care Provider +1 -[phone] Encounter Details Date Type Department Care Team Description 06/04/2020 CGM Report Medical Records [address] [place] [address] Abstract, Provider Social History Tobacco Use Types Packs/Day Years [...] have Coronavirus / COVID-19? No / Unsure 06/04/2020 8:46 AM EST documented as of this encounter Plan of Treatment Not on file documented as of this encounter Visit Diagnoses Not on filedocumented in this encounter Care Teams Labor Relations Supervisor Relationship Specialty Start Date End Date Aj Devlin MD [address] [place] [address] PCP - General Internal Medicine 05/20/16 documented as of this encounter
--- OUTSIDE RECORDS SUMMARY | 2025-03-29 13:19 | XMS_ITS | Encounter Summary ---
Author Organization [facility] Address [address] [place] [address] Care Team Providers Care Process Control Tech Name Role Phone Aj Devlin MD Primary Care Provider +1 -[phone] Encounter Details Date Type Department Care Team Description 02/26/2017 Incoming Correspondence Medical Records [address] [place] [address] Vascular, [facility] [address] [place] [address] Social History Tobacco Use Types Packs/Day Years [...] on filedocumented in this encounter Care Teams Process Control Tech Relationship Specialty Start Date End Date Aj Devlin MD [address] [place] [address] PCP - General Internal Medicine 05/20/16 documented as of this encounter
--- OUTSIDE RECORDS SUMMARY | 2025-03-29 13:19 | XMS_ITS | Encounter Summary ---
Author Organization [facility] Address [address] [place] [address] Care Team Providers Care Distribution Center Manager Name Role Phone Aj Devlin MD Primary Care Provider +1 -[phone] Encounter Details Date Type Department Care Team Description 12/09/2018 Incoming Correspondence Medical Records [address] [place] [address] Pebbles Trent Social History Tobacco Use Types [...] on filedocumented in this encounter Care Teams Distribution Center Manager Relationship Specialty Start Date End Date Aj Devlin MD [address] [place] [address] PCP - General Internal Medicine 05/20/16 documented as of this encounter
--- OUTSIDE RECORDS SUMMARY | 2025-03-29 13:19 | XMS_ITS | Encounter Summary ---
Author Organization [facility] Address [address] [place] [address] Care Team Providers Care Power Line Installer And Repairer Name Role Phone Aj Devlin MD Primary Care Provider +1 -[phone] Encounter Details Date Type Department Care Team Description 05/18/2017 Release of Information Medical Records [address] [place] [address] Abstract, Provider Social History Tobacco Use Types [...] on filedocumented in this encounter Care Teams Power Line Installer And Repairer Relationship Specialty Start Date End Date Aj Devlin MD [address] [place] [address] PCP - General Internal Medicine 05/20/16 documented as of this encounter
--- OUTSIDE RECORDS SUMMARY | 2025-03-29 13:19 | XMS_ITS | Encounter Summary ---
Author Organization [facility] Address [address] [place] [address] Care Team Providers Care Game Attendant Name Role Phone Aj Devlin MD Primary Care Provider +1 -[phone] Encounter Details Date Type Department Care Team Description 02/03/2018 Release of Information Medical Records [address] [place] [address] Abstract, Provider Social History Tobacco Use Types [...] on filedocumented in this encounter Care Teams Game Attendant Relationship Specialty Start Date End Date Aj Devlin MD [address] [place] [address] PCP - General Internal Medicine 05/20/16 documented as of this encounter
--- OUTSIDE RECORDS SUMMARY | 2025-03-29 13:19 | XMS_ITS | Encounter Summary ---
Author Organization [facility] Address [address] [place] [address] Care Team Providers Care Equipment Specialist Name Role Phone Aj Devlin MD Primary Care Provider +1 -[phone] Encounter Details Date Type Department Care Team Description 03/13/2019 Incoming Correspondence Medical Records [address] [place] [address] Vascular, [facility] [address] [place] [address] Social History Tobacco Use Types Packs/Day Years [...] on filedocumented in this encounter Care Teams Equipment Specialist Relationship Specialty Start Date End Date Aj Devlin MD [address] [place] [address] PCP - General Internal Medicine 05/20/16 documented as of this encounter
--- OUTSIDE RECORDS SUMMARY | 2025-03-29 13:19 | XMS_ITS | Encounter Summary ---
Author Organization [facility] Address [address] [place] [address] Care Team Providers Care Extract Operator Name Role Phone Catrachita Grey MD Primary Care Provider Unavailable Zayra Orozco MD Primary Care Provider UnaRegan Beasley MD Primary Care Provider Unavaila Aj Hamm MD Primary Care Provider +1 -[phone] Encounter Details Date Type Department Care Team Description 04/30/2011 Telephone OBGYN - [facility] [address] [place] [address] Maria Del Carmen Crump CNM Social History Tobacco Use Types Packs/Day Years Used Date Smoking Tobacco: Never Alcohol Use Standard Drinks/Week Comments No 0 (1 standard drink = 0.6 oz pur e alcohol) Sex Assigned at Date Recorded Not on file Job Start Date Occupation Industry Not on file Not on file Not on file documented as of this encounter Miscellaneous Notes * Telephone Encounter - Maria Del Carmen Crump CNM - 04/30/2011 11:28 AM EDT Telephone Information: [id number] documented in this encounter Plan of Treatment Not on file documented as of this encounter Visit Diagnoses Not on filedocumented in this encounter Care Teams Extract Operator Relationship Specialty Start Date End Date Aparna-Catrachita Medrano MD PCP - General 03/17/01 Zayra Orozco MD PCP - General Internal Medicine 04/10/14 05/19/15 Regan Syed MD PCP - General Internal Medicine 05/20/15 05/19/16 Aj Devlin MD [address] [place] [address] PCP - General Internal Medicine 05/20/16 documented as of this encounter
--- OUTSIDE RECORDS SUMMARY | 2025-03-29 13:19 | XMS_ITS | Encounter Summary ---
Author Organization [facility] Address [address] [place] [address] Care Team Providers Care Banking Paralegal Name Role Phone Aj Devlin MD Primary Care Provider +1 -[phone] Encounter Details Date Type Department Care Team Description 04/26/2019 Old Medical Records Medical Records [address] [place] [address] Abstract, Provider Social History Tobacco Use Types [...] on filedocumented in this encounter Care Teams Banking Paralegal Relationship Specialty Start Date End Date Aj Devlin MD [address] [place], [place] [id number] PCP - General Internal Medicine 05/20/16 documented as of this encounter
--- OUTSIDE RECORDS SUMMARY | 2025-03-29 13:19 | XMS_ITS | Encounter Summary ---
Author Organization [facility] Address [address] [place] [address] Care Team Providers Care Oriental Rug Repairer Name Role Phone Aj Devlin MD Primary Care Provider +1 -[phone] Encounter Details Date Type Department Care Team Description 06/10/2018 Farm Assistant Report Medical Records [address] [place] [address] Vascular, [facility] [address] [place] [address] Social History Tobacco Use Types Packs/Day Years [...] on filedocumented in this encounter Care Teams Oriental Rug Repairer Relationship Specialty Start Date End Date Aj Devlin MD [address] [place] [address] PCP - General Internal Medicine 05/20/16 documented as of this encounter
--- OUTSIDE RECORDS SUMMARY | 2025-03-29 13:19 | XMS_ITS | Encounter Summary ---
Author Organization [facility] Address [address] [place] [address] Care Team Providers Care Bag Filler Name Role Phone Zayra Orozco MD Primary Care Provider Regan Verduzco MD Primary Care Provider Apryla Aj Hamm MD Primary Care Provider +1 -[phone] Encounter Details Date Type Department Care Team Description 06/08/2014 Incoming Correspondence Medical Records [address] [place] [address] Yvette Goodwin Social History Tobacco Use Types [...] on filedocumented in this encounter Care Teams Bag Filler Relationship Specialty Start Date End Date Zayra Orozco MD PCP - General Internal Medicine 04/10/14 05/19/15 Regan Syed MD PCP - General Internal Medicine 05/20/15 05/19/16 Aj Devlin MD [address] [place] [address] PCP - General Internal Medicine 05/20/16 documented as of this encounter
--- OUTSIDE RECORDS SUMMARY | 2025-03-29 13:19 | XMS_ITS | Encounter Summary ---
Author Organization [facility] Address [address] [place] [address] Care Team Providers Care Poker Prop Player Name Role Phone Aj Devlin MD Primary Care Provider +1 -[phone] Encounter Details Date Type Department Care Team Description 12/13/2020 Telephone Gastroenterology - [facility] [place] [address] [facility] [address] [place] [address] Colton Kaplan PA-C Social History Tobacco Use Types Packs/Day Years [...] have Coronavirus / COVID-19? No / Unsure 12/04/2020 12:24 PM EDT documented as of this encounter Miscellaneous Notes * Telephone Encounter - Colton Kaplan PA-C - 12/13/2020 1:47 PM EDT Pt was scheduled for a liver bx yesterday. It wasn't done because the lesion in question wasn't seen. I requested a call back from radiologist Dr. Faheem Cox to discuss further documented in this encounter Plan of Treatment Not on file documented as of this encounter Visit Diagnoses Not on filedocumented in this encounter Care Teams Poker Prop Player Relationship Specialty Start Date End Date Aj Devlin MD [address] [place] [address] PCP - General Internal Medicine 05/20/16 documented as of this encounter
--- OUTSIDE RECORDS SUMMARY | 2025-03-29 13:19 | XMS_ITS | Encounter Summary ---
Author Organization [facility] Address [address] [place] [address] Care Team Providers Care Call Center Coordinator Name Role Phone Aj Devlin MD Primary Care Provider +1 -[phone] Encounter Details Date Type Department Care Team Description 12/07/2020 [facility] Medical Records [address] [place] [address] Social History Tobacco Use Types Packs/Day Years [...] on filedocumented in this encounter Care Teams Call Center Coordinator Relationship Specialty Start Date End Date Aj Devlin MD [address] [place] [address] PCP - General Internal Medicine 05/20/16 documented as of this encounter
--- OUTSIDE RECORDS SUMMARY | 2025-03-29 13:19 | XMS_ITS | Encounter Summary ---
Author Organization [facility] Address [address] [place] [address] Care Team Providers Care Society Reporter Name Role Phone Aj Devlin MD Primary Care Provider +1 -[phone] Reason for Visit * Reason Onset Date Comments medication problems 04/12/2018 Encounter Details Date Type Department Care Team Description 04/12/2018 Telephone Adult Medicine B - [address] [address] Aj Devlin MD [address] [place] [address] medication problems Social History Tobacco Use Types Packs/Day Years [...] encounter Miscellaneous Notes * Telephone Encounter - Aj Devlin MD - 04/12/2018 2:39 PM EDT Order signed * Telephone Encounter - Yina Clark - 04/12/2018 2:31 PM EDT Please sing new order for [facility] pharmacy never received ether. * Telephone Encounter - Aj Devlin MD - 04/12/2018 2:30 PM EDT Order signed * Telephone Encounter - Yina Clark - 04/12/2018 2:27 PM EDT Patient need new script sent to the pharmacy. Order pended * Telephone Encounter - Juan F Shelley - 04/12/2018 2:03 PM EDT Name of the medication Freestyle lite glucose monitor What is the specific problem or interaction? Needs to have script sent in. See encounter from yesterday message nurse called in script. Also please send scripts for lancets and test strips that go with freestyle lite monitor. If the patient is having a problem with taking the med - how long has the problem been going on? 04-11-18 Patient would like script to be: E-PRESCRIBED/FAXED TO PHARMACY WHEN WAS THE PATIENT'S LAST APPOINTMENT IN ADULT MEDICINE? 04-08-18 WHEN WAS THE LAST TIME THE PATIENT SAW THEIR PCP? Same as above Does patient have an upcoming appointment? Yes 09-09-17 (THE MEDICATION REQUESTED IS ON THE MED LIST ABOVE) All of the medications requested were on the CURRENT MEDS list Did you check the Pharmacy information above?: YES Patient wants: 30 -day supply Is this a mail order prescription request ? NO If the refill is from a FAXED refill request what is the RX # listed on the fax? N/A Patients current insurance carrier is: Payor: [employer] FFS / Plan: [employer] / Product Type: MEDICAID RISK documented in this encounter Plan of Treatment Not on file documented as of this encounter Visit Diagnoses Diagnosis Hypoglycemia Hypoglycemia, unspecified documented in this encounter Care Teams Society Reporter Relationship Specialty Start Date End Date Aj Devlin MD [address] [place] [address] PCP - General Internal Medicine 05/20/16 documented as of this encounter
--- OUTSIDE RECORDS SUMMARY | 2025-03-29 13:19 | XMS_ITS | Encounter Summary ---
Author Organization [facility] Address [address] [place] [address] Care Team Providers Care Trip Motor Operator Name Role Phone Aj Devlin MD Primary Care Provider [phone] -[phone] Reason for Visit * Reason Onset Date Comments Faxed Order 12/11/2022 [place] [facility] Encounter Details Date Type Department Care Team Description 12/11/2022 Telephone Adult Medicine B - [address] [address] Aj Devlin MD [address] [place] [address] Faxed Order ([place] [facility] ) Social History Tobacco Use Types Packs/Day Years [...] suspected to have Coronavirus/COVID-19? No / Unsure 11/25/2022 1:03 PM EDT documented as of this encounter Miscellaneous Notes * Telephone Encounter - Brigitte Watkins - 12/11/2022 3:41 PM EDT Placed in doctors bin: [place] [facility] Please Review, Sign & Fax when completed documented in this encounter Plan of Treatment Not on file documented as of this encounter Visit Diagnoses Not on filedocumented in this encounter Care Teams Trip Motor Operator Relationship Specialty Start Date End Date Aj Devlin MD [address] [place] [address] PCP - General Internal Medicine 05/20/16 documented as of this encounter
--- OUTSIDE RECORDS SUMMARY | 2025-03-29 13:19 | XMS_ITS | Encounter Summary ---
Author Organization [facility] Address [address] [place] [address] Care Team Providers Care Vice President Quality Improvement Name Role Phone Aj Devlin MD Primary Care Provider +1 -[phone] Encounter Details Date Type Department Care Team Description 12/01/2017 Incoming Correspondence Medical Records [address] [place] [address] Vascular, [facility] [address] [place] [address] Social History Tobacco Use Types Packs/Day Years [...] on filedocumented in this encounter Care Teams Vice President Quality Improvement Relationship Specialty Start Date End Date Aj Devlin MD [address] [place] [address] PCP - General Internal Medicine 05/20/16 documented as of this encounter
--- OUTSIDE RECORDS SUMMARY | 2025-03-29 13:19 | XMS_ITS | Encounter Summary ---
Author Organization [facility] Address [address] [place] [address] Care Team Providers Care Transit Clerk Name Role Phone Aj Devlin MD Primary Care Provider +1 -[phone] Encounter Details Date Type Department Care Team Description 03/30/2023 Orders Only Medical Records [address] [place] [address] Abstract, Provider Social History Tobacco Use Types [...] suspected to have Coronavirus/COVID-19? No / Unsure 03/31/2023 4:03 PM EDT documented as of this encounter Plan of Treatment Not on file documented as of this encounter Procedures Procedure Name Priority Date/Time Associated Diagnosis Comments OUTSIDE EYE EXAM Routine 12/23/2022 documented in this encounter Results * OUTSIDE EYE EXAM (12/23/2022) Provider Abstract PROCEDURES documented in this encounter Visit Diagnoses Not on filedocumented in this encounter Care Teams Transit Clerk Relationship Specialty Start Date End Date Aj Devlin MD [address] [place] [address] PCP - General Internal Medicine 05/20/16 documented as of this encounter
--- OUTSIDE RECORDS SUMMARY | 2025-03-29 13:19 | XMS_ITS | Encounter Summary ---
Author Organization [facility] Address [address] [place] [address] Care Team Providers Care Stock Mixer Name Role Phone Aj Devlin MD Primary Care Provider +1 -[phone] Reason for Visit * Reason Onset Date Comments Faxed Order 12/31/2022 [facility] Encounter Details Date Type Department Care Team Description 12/31/2022 Telephone Adult Medicine [address] [address] Aj Devlin MD [address] [place] [address] Faxed Order ([facility] ) Social History Tobacco Use Types [...] * Telephone Encounter - Padmaja Robert - 12/31/2022 11:07 AM EDT Faxed order received by [facility] . Order for Care plan placed in Dr. Devlin's bin for signature. Please fax back to after completion. documented in this encounter Plan of Treatment Not on file documented as of this encounter Visit Diagnoses Not on filedocumented in this encounter Care Teams Stock Mixer Relationship Specialty Start Date End Date Aj Devlin MD [address] [place] [address] PCP - General Internal Medicine 05/20/16 documented as of this encounter
--- OUTSIDE RECORDS SUMMARY | 2025-03-29 13:19 | XMS_ITS | Encounter Summary ---
Author Organization [facility] Address [address] [place] [address] Care Team Providers Care Plant Operations Engineer Name Role Phone Aj Devlin MD Primary Care Provider +1 -[phone] Encounter Details Date Type Department Care Team Description 07/22/2017 Bottle Tester Report Medical Records [address] [place] [address] Testing, [address] [address] Social History Tobacco Use Types Packs/Day Years [...] on filedocumented in this encounter Care Teams Plant Operations Engineer Relationship Specialty Start Date End Date Aj Devlin MD [address] [place] [address] PCP - General Internal Medicine 05/20/16 documented as of this encounter
--- OUTSIDE RECORDS SUMMARY | 2025-03-29 13:19 | XMS_ITS | Encounter Summary ---
Author Organization [facility] Address [address] [place] [address] Care Team Providers Care Bit Shaver Name Role Phone Aj Devlin MD Primary Care Provider +1 -[phone] Encounter Details Date Type Department Care Team Description 12/17/2017 Telephone Adult Medicine [address] [address] Aj Devlin MD [address] [place] [address] Social History Tobacco Use Types Packs/Day Years [...] encounter Miscellaneous Notes * Telephone Encounter - Anu CORBIN - 12/20/2017 8:36 AM EDT Left message for nurse to call office * Telephone Encounter - Steve Edward MD - 12/17/2017 4:23 PM EDT Fasting is not necessary. More indepth studies of glucose metabolism * Telephone Encounter - Ana Maria Kuhn M.A. - 12/17/2017 4:13 PM EDT Does the pt need to be fasting for additional labs? Caller is asking why these are being ordered. Please review and advise. Thank you * Telephone Encounter - Nel Small - 12/17/2017 4:00 PM EDT Caller requesting call back from provider: Is the caller the patient? NO If caller is not the patient, what is the callers name? Janine Callers relationship to patient? [facility] long term RN If person calling is not the patient themselves, is there a verbal release in FYI or permanent comments for this person: YES Reason for call back: Unaware of blood testing. Wants to now why - and if she has to fast. Caller offered to speak with the nurse for assistance: YES Response: Patient offered to speak with nurse for assistance and patient agreed. Message forwarded to nurse. documented in this encounter Plan of Treatment Not on file documented as of this encounter Visit Diagnoses Not on filedocumented in this encounter Care Teams Bit Shaver Relationship Specialty Start Date End Date Aj Devlin MD [address] [place] [address] PCP - General Internal Medicine 05/20/16 documented as of this encounter
--- OUTSIDE RECORDS SUMMARY | 2025-03-29 13:19 | XMS_ITS | Encounter Summary ---
Author Organization [facility] Address [address] [place] [address] Care Team Providers Care Wireless Construction Manager Name Role Phone Aj Devlin MD Primary Care Provider +1 -[phone] Reason for Visit * Reason Onset Date Comments Form 12/15/2017 Encounter Details Date Type Department Care Team Description 12/15/2017 Telephone Adult Medicine - [place] [address] [place] [address] Neida Lara, RN INTENSIVE CARE UNIT [address] [place] [address] Form Social History Tobacco Use Types Packs/Day Years [...] Telephone Encounter - Aj Devlin MD - 12/21/2017 11:08 AM EDT I have the form, and I reviewed the labs and I will fill it. * Telephone Encounter - Padmaja Montero M.A. - 12/21/2017 10:15 AM EDT Result is final. * Telephone Encounter - Padmaja Montero M.A. - 12/17/2017 10:59 AM EDT Lab results pending * Telephone Encounter - Arlyn Frankel C.M.A. - 12/16/2017 8:55 AM EDT Noted. * Telephone Encounter - Aj Devlin MD - 12/16/2017 8:47 AM EDT Awaiting tb test * Telephone Encounter - Neida Lara NP - 12/15/2017 3:20 PM EDT Adult daycare form to PCP for completion. Quantiferon gold ordered. He completed September 2017 by PCP. documented in this encounter Plan of Treatment Not on file documented as of this encounter Visit Diagnoses Not on filedocumented in this encounter Care Teams Wireless Construction Manager Relationship Specialty Start Date End Date Aj Devlin MD [address] [place] [address] PCP - General Internal Medicine 05/20/16 documented as of this encounter
--- OUTSIDE RECORDS SUMMARY | 2025-03-29 13:19 | XMS_ITS | Encounter Summary ---
Author Organization [facility] Address [address] [place] [address] Care Team Providers Care Orthopedic Shoe Fitter Name Role Phone Aj Devlin MD Primary Care Provider +1 -[phone] Encounter Details Date Type Department Care Team Description 09/22/2018 Medical Service Technician Report Medical Records [address] [place] [address] Zhang Clark Social History Tobacco Use Types Packs/Day Years [...] on filedocumented in this encounter Care Teams Orthopedic Shoe Fitter Relationship Specialty Start Date End Date Aj Devlin MD [address] [place], [place] [phone] PCP - General Internal Medicine 05/20/16 documented as of this encounter
--- OUTSIDE RECORDS SUMMARY | 2025-03-29 13:19 | XMS_ITS | Encounter Summary ---
Author Organization [facility] Address [address] [place] [address] Care Team Providers Care Stone Cleaner Name Role Phone Aj Devlin MD Primary Care Provider +1 -[phone] Encounter Details Date Type Department Care Team Description 11/07/2019 Incoming Correspondence Medical Records [address] [place] [address] Vascular, [facility] And [address] [place] [address] Social History Tobacco Use Types Packs/Day Years [...] on filedocumented in this encounter Care Teams Stone Cleaner Relationship Specialty Start Date End Date Aj Devlin MD [address] [place] [address] PCP - General Internal Medicine 05/20/16 documented as of this encounter
--- OUTSIDE RECORDS SUMMARY | 2025-03-29 13:19 | XMS_ITS | Encounter Summary ---
Author Organization [facility] Address [address] [place] [address] Care Team Providers Care Vp Talent Management Name Role Phone Aj Devlin MD Primary Care Provider [phone] Reason for Visit * Reason Onset Date Comments Consult Request 11/18/2022 Encounter Details Date Type Department Care Team Description 11/18/2022 Telephone Adult Medicine B - [place] [address] [place] [address] Neida Lara, RAIL SETTER [address] [place] [address] Consult Request Social History Tobacco Use Types Packs/Day Years [...] suspected to have Coronavirus/COVID-19? No / Unsure 11/18/2022 3:35 PM EDT documented as of this encounter Miscellaneous Notes * Telephone Encounter - Yina Berkowitz - 11/18/2022 4:58 PM EDT noted * Telephone Encounter - Neida Lara NP - 11/18/2022 4:51 PM EDT Please obtain most recent office visit notes from Dr. Amy Rodríguez (including imaging), and [facility] for my review. documented in this encounter Plan of Treatment Not on file documented as of this encounter Visit Diagnoses Not on filedocumented in this encounter Care Teams Vp Talent Management Relationship Specialty Start Date End Date Aj Devlin MD [address] [place] [id number] PCP - General Internal Medicine 05/20/16 documented as of this encounter
--- OUTSIDE RECORDS SUMMARY | 2025-03-29 13:19 | XMS_ITS | Encounter Summary ---
Author Organization [facility] Address [address] [place] [address] Care Team Providers Care Automatic Embroidery Machine Tender Name Role Phone Aj Devlin MD Primary Care Provider [phone] Encounter Details Date Type Department Care Team Description 06/19/2019 Quill Machine Operator Report Medical Records [address] [place] [address] Social History Tobacco Use Types Packs/Day Years [...] on filedocumented in this encounter Care Teams Automatic Embroidery Machine Tender Relationship Specialty Start Date End Date Aj Devlin MD [address] [place] [address] PCP - General Internal Medicine 05/20/16 documented as of this encounter
--- OUTSIDE RECORDS SUMMARY | 2025-03-29 13:19 | XMS_ITS | Encounter Summary ---
Author Organization [facility] Address [address] [place] [address] Care Team Providers Care Head Swamper Name Role Phone Aj Devlin MD Primary Care Provider [phone] Encounter Details Date Type Department Care Team Description 03/23/2023 Supervisor Area Report Medical Records [address] [place] [address] Amy Sherman MD Social History Tobacco Use Types Packs/Day [...] on filedocumented in this encounter Care Teams Head Swamper Relationship Specialty Start Date End Date Aj Devlin MD [address] [place] [address] PCP - General Internal Medicine 05/20/16 documented as of this encounter
--- OUTSIDE RECORDS SUMMARY | 2025-03-29 13:19 | XMS_ITS | Encounter Summary ---
Author Organization [facility] Address [address] [place] [address] Care Team Providers Care Float Operator Name Role Phone Aj Devlin MD Primary Care Provider [phone] Encounter Details Date Type Department Care Team Description 08/18/2017 Transfer Records Medical Records [address] [place] [address] Abstract, Provider Social History Tobacco Use Types Packs/Day Years Used Date Smoking Tobacco: Never Smokeless Tobacco: Never Alcohol Use Standard Drinks/Week Comments No 0 (1 standard drink = 0.6 oz pur e alcohol) Sex Assigned at Date Recorded Not on file Job Start Date Occupation Industry Not on file Not on file Not on file documented as of this encounter Nursing Notes * Cherie Lee - 08/18/2017 10:08 AM EST Transfer Records from [facility] to Karmen Wallace R.N. Cylinder Batcher. documented in this encounter Plan of Treatment Not on file documented as of this encounter Visit Diagnoses Not on filedocumented in this encounter Care Teams Float Operator Relationship Specialty Start Date End Date Aj Devlin MD [address] [place] [address] PCP - General Internal Medicine 05/20/16 documented as of this encounter
== END 2025-03-29 12:09 | disposition home or self-care (01) ==
LOC: HO.HOSX 12:08
PROVIDERS: PCP Internal Medicine; Visit Provider Physical Medicine & Rehabilitation
DX: G80.1 Spastic diplegic cerebral palsy (principal); M54.9 Dorsalgia, unspecified; M25.559 Pain in unspecified hip
CPT/HCPCS: 72100; 73522; 73551; 73590; 99212

== ENCOUNTER 2025-03-29 12:08 | Outpatient (AMB) | payer OTHER, SELFPAY ==
--- NOTE | 2025-03-29 12:09 | A.OFFVIS_ITS ---
Vital Signs 03/29/25 12:13 Height 5 ft 6 in Weight 130 lb BMI 21.0 Intake Visit Reasons: OV, Botox inj 12/06/24 follow up Intake Note: Jacqueline is a 39 year old female who presents today as a follow up from her Botox injection, 12/06/24. Patient states that the mid to lower back pain has increased since her fall at home in 12/2024 where she went to an urgent care and [facility] ER,01/28/25. She added that her dizzy spells are still occurring so she went to Neurology 02/28/25. Patient states that she would like to discuss getting an MRI or X Ray. Allergies propofol Adverse Reaction (Unknown, Verified 03/29/25 12:13) Unknown Medication List - Last Reconciled 03/29/25 by Anny Menjivar MD acetaminophen 325 mg PO QID PRN blood sugar diagnostic (FreeStyle Lite Strips) As directed blood-glucose meter (FreeStyle Lite Meter kit) As directed diclofenac sodium 1% topical escitalopram oxalate (Lexapro) 10 mg PO DAILY gabapentin 100 mg PO BEDTIME hydroxyzine HCl 25 mg PO BEDTIME lancets (FreeStyle Lancets) As directed leg brace (Ankle Brace) Bilateral AFO custom molded either adjustment of current AFOs or consideration of new AFOs. melatonin mg PO trazodone 50 mg PO DAILY HPI Comments Details: Last Botox 12/06/24. Fell coming out of bathtub, 01/28. She does not sure how it happened. Went to Urgent Care then sent to [facility] ED for imaging. No fractures. Followed with Neurology in January, treating for dizziness, she started on gabapentin for tremors. Blood pressure been low, taken off propanolol (which was given for tremors before). Followed with cardiology for pacemaker, went to ED 02/11, had pacemaker changed 02/13. Told to have congenital heart failure. Last week, BP was low again, went to ED per cardiology advise. Medications adj usted. Continues to be on trazodone and melatonin for sleep, prescribed CHD along with lexapro. Regarding the botulinum toxin injections, she's not sure if helping at all. She denies falling much in November and December. But she can't tell difference in terms of balance. No pain after botox in November. PENDING SALE TO [facility] Medical History Spastic diplegic cerebral palsy Coarse tremors Paraparesis Intellectual disability Glucose intolerance Anxiety Developmental delay, borderline Complete heart block Pacemaker Social History Alcohol intake: never Patient Tobacco Use Status: Never used Tobacco Physical Exam Exam Exam: There is some tightness on bilateral rectus femoris, Dani 1 only. Left more notable tightness than right. Dani 0 on ankles. Patient indicates discomfort/tightness on bilateral xiong area. She can flex knees and ankles, do heel to toe, with gait. Vital Signs: BMI result Body Mass Index 21.0 Assessment & Plan Assessment & Plan (1) Neurologic gait dysfunction: Code(s): R26.9 - Unspecified abnormalities of gait and mobility Category: Medical (2) Spastic diplegic cerebral palsy: Code(s): G80.1 - Spastic diplegic cerebral palsy Category: Medical Plan It has been difficult to assess whether botulinum toxin injections have been helpful. She was falling prior to start of Botox, but continue to fall even after or in between injections. I do remember though, she used to walk with knees extended, more like a duck walk, prior to start of botulinum toxin injections. We agreed on holding off on further injections. I will re-evaluate her in 2-3 months. Watch out for falls. I would expect that she would get more tight in the next weeks. Diffuse nonspecific discomfort on both legs and lower back. We will get x-rays today. Assessment and plan discussed with patient, and patient was agreeable. All questions were answered thoroughly. Next follow-up week of June. Anny Menjivar MD, ELADIO Board Certified, [place] [employer] Physical Medicine and Rehabilitation (ABPMR) Board Certified, [place] Board of Electrodiagnostic Medicine (ABEM) Orders: Orders XR Tibia Fibula Fitz 2V Today R26.9 - Unspecified abnormalities of gait and mobility XR lumbar spine 2-3V Today M54.9 - Dorsalgia, unspecified, R26.9 - Unspecified abnormalities of gait and mobility XR hips FITZ min 3V Today M25.559 - Pain in unspecified hip, R26.9 - Unspecified abnormalities of gait and mobility XR Femur Fitz 1V Today R26.9 - Unspecified abnormalities of gait and mobility Coding Level of Care Code Est Pt Level 4 (74072) Diagnoses Neurologic gait dysfunction R26.9 Spastic diplegic cerebral palsy G80.1
[2025-03-29 12:13] VITALS: BMI 21.0
--- OUTSIDE RECORDS SUMMARY | 2025-03-29 13:08 | XMS_ITS | Encounter Summary ---
Author Organization [facility] Address [address] [place] [address] Care Team Providers Care Energy Systems Engineer Name Role Phone Magda Corrigan MD Primary Care Provider [phone] Reason for Visit * Reason Onset Date Comments Hospital Follow-up 03/27/2025 Encounter Details Date Type Department Care Team (Late st Contact Info) Description 03/27/2025 Telephone Internal Medicine - [facility] [address] [place] [phone] Magda Corrigan MD [address] [place] [address] Social History Tobacco Use Types Packs/Day Years Used Date Smoking Tobacco: Never Smokeless Tobacco: Never Alcohol Use Standard Drinks/Week Comments No 0 (1 standard drink = 0.6 oz pur e alcohol) Comments No Sex and Gender Information Value Date Recorded Sex Assigned at Female 01/23/2025 4:24 PM EDT Legal Sex Female 8:41 PM EST Gender Identity Female 01/23/2025 4:24 PM EDT Sexual Orientation Straight 01/23/2025 4: 24 PM EDT documented as of this encounter Progress Notes * Brandy Allison MA - 03/27/2025 3:47 PM EDT Appt scheduled * Tamiko Alexander - 03/27/2025 2:02 PM EDT Hospital/ER follow up appointment needed Hospital patient was treated at: [facility], [facility] Was this only an ER visit or was the patient admitted to the hospital? Admitted to the hospital/kept overnight Date of visit if ER visit only: n/a If patient was admitted what was the date of discharge? 03/27/25 Reason/diagnosis for visit or stay: low blood pressure/tachycardia When was the patient told to follow up? Within a few days Was visit or stay related to an injury? If yes, what was the date of injury (DOI)? No If yes, was the injury due to: no documented in this encounter Plan of Treatment Upcoming Encounters Date Type Department Care Team (Late st Contact Info) Description 04/03/2025 10:30 AM EDT [facility] [address] [phone] Danielle Dudley NP [address] [place] [address] 04/11/2025 3:00 PM EDT Office Visit Orthopedic Surgery - [place] [address] [facility] [address] [place] [address] [phone] Thomas Solano, DPM [address] [place] [phone] 04/30/2025 3:00 PM EDT Office Visit Internal Medicine - [address] [phone] Rosanna Lu NP [address] [place] [address] 06/05/2025 2:30 PM EST Office Visit Internal Medicine - [address] [phone] Nathaniel Alan NP [address] [place] [address] 06/19/2025 3:00 PM EST Office Visit Internal Medicine - [address] [phone] Magda Corrigan MD [address] [place] [address] documented as of this encounter Visit Diagnoses Not on filedocumented in this encounter Care Teams Energy Systems Engineer Relationship Specialty Start Date End Date Magda Corrigan MD [address] [place] [address] PCP - General Internal Medicine 03/01/25 documented as of this encounter
--- OUTSIDE RECORDS SUMMARY | 2025-03-29 13:08 | XMS_ITS | Encounter Summary ---
Author Organization [facility] Address [address] [place] [address] Care Team Providers Care Fairground Operator Name Role Phone Magda Corrigan MD Primary Care Provider [phone] Reason for Visit * Reason Onset Date Comments Request For Order(s) 03/08/2025 [facility] Encounter Details Date Type Department Care Team (Late st Contact Info) Description 03/08/2025 Telephone Internal Medicine - [facility] [address] [place] [phone] Magda Corrigan MD [address] [place] [phone] Social History Tobacco Use Types Packs/Day Years [...] as of this encounter Progress Notes * Loren Brown - 03/08/2025 10:49 AM EDT Orders from [facility] placed in MD rona Keyes. Please complete and fax back to [phone]. Thank you documented in this encounter Plan of Treatment Upcoming Encounters Date Type Department Care Team (Late st Contact Info) Description 04/03/2025 10:30 AM EDT Office Visit Internal Medicine - [address] [phone] Danielle Dudley NP [address] [place] [address] 04/11/2025 3:00 PM EDT Office Visit Orthopedic Surgery - [place] [address] [facility] [address] [place] [phone] Thomas Solano, DPM [address] [place] [phone] 04/30/2025 3:00 PM EDT Office Visit Internal Medicine - [address] [phone] Rosanna Lu NP [address] [place] [address] 06/05/2025 2:30 PM EST Office Visit Internal Medicine - [address] [phone] Nathaniel Alan NP [address] [place] [address] 06/19/2025 3:00 PM EST Office Visit Internal Medicine - [address] [phone] Magda Corrigan MD [address] [place] [address] documented as of this encounter Visit Diagnoses Not on filedocumented in this encounter Care Teams Fairground Operator Relationship Specialty Start Date End Date Magda Corrigan MD [address] [place], [place] PCP - General Internal Medicine 03/01/25 documented as of this encounter
--- OUTSIDE RECORDS SUMMARY | 2025-03-29 13:08 | XMS_ITS | Encounter Summary ---
Author Organization [facility] Address [address] [place] [address] Care Team Providers Care Finishing Range Operator Name Role Phone Magda Corrigan MD Primary Care Provider [phone] Reason for Visit * Reason Onset Date Comments Faxed Order 03/28/2025 [facility] ([id number]) Encounter Details Date Type Department Care Team ([facility] st Contact Info) Description 03/28/2025 Telephone Internal Medicine - [facility] [address] [place], [place] [phone] Magda Corrigan MD [address] [place], [place] Social History Tobacco Use Types Packs/Day Years [...] as of this encounter Progress Notes * Kirsten Villeda - 03/28/2025 1:39 PM EDT Orders from [facility] placed in MD rona Keyes. Please complete and fax back to [phone]. Thank you documented in this encounter Plan of Treatment Upcoming Encounters Date Type Department Care Team (Late st Contact Info) Description 04/03/2025 10:30 AM EDT Office Visit Internal Medicine - [address] [phone] Danielle Dudley NP [address] [place] [address] 04/11/2025 3:00 PM EDT Office Visit Orthopedic Surgery - [place] [address] [facility] [address] [place] [address] [phone] Thomas Solano, DPM [address] [place] [phone] 04/30/2025 3:00 PM EDT Office Visit Internal Medicine - [address] [phone] Rosanna Lu NP [address] [place] [address] 06/05/2025 2:30 PM EST Office Visit Internal Medicine - [address] [phone] Nathaniel Alan NP [address] [place] [address] 06/19/2025 3:00 PM EST Office Visit Internal Medicine - [address] [phone] Magda Corrigan MD [address] [place] [address] documented as of this encounter Visit Diagnoses Not on filedocumented in this encounter Care Teams Finishing Range Operator Relationship Specialty Start Date End Date Magda Corrigan MD [address] [place] PCP - General Internal Medicine 03/01/25 documented as of this encounter
--- OUTSIDE RECORDS SUMMARY | 2025-03-29 13:08 | XMS_ITS | Encounter Summary ---
Author Organization [facility] Address [address] [place] [address] Care Team Providers Care Software Computer Specialist Name Role Phone Magda Corrigan MD Primary Care Provider [phone] Reason for Visit * Reason Onset Date Comments Faxed Order 02/23/2025 [facility] Encounter Details Date Type Department Care Team (Late st Contact Info) Description 02/23/2025 [facility]phone [facility] [address] [place] [phone] Aj Devlin MD [address] [place] [id number] Social History Tobacco Use Types Packs/Day Years [...] encounter Progress Notes * Kirsten Villeda - 02/23/2025 10:22 AM EDT Orders from [facility] placed in MD rona Keyes. Please complete and fax back to [phone]. Thank you documented in this encounter Plan of Treatment Upcoming Encounters Date Type Department Care Team (Late st Contact Info) Description 04/03/2025 10:30 AM EDT Office Visit Internal Medicine - [address] [phone] Danielle Dudley NP [address] [place] [address] 04/11/2025 3:00 PM EDT Office Visit Orthopedic Surgery - [place] [address] [place] [address] [place] [phone] Thomas Solano, DPM [address] [place] [phone] 04/30/2025 3:00 PM EDT Office Visit Internal Medicine - [address] [phone] Rosanna Lu NP [address] [place] [address] 06/05/2025 2:30 PM EST Office Visit Internal Medicine - [address] [phone] Nathaniel Alan NP [address] [place] [address] 06/19/2025 3:00 PM EST Office Visit Internal Medicine - [address] [phone] Magda Corrigan MD [address] [place] [address] documented as of this encounter Visit Diagnoses Not on filedocumented in this encounter Care Teams Software Computer Specialist Relationship Specialty Start Date End Date Magda Corrigan MD [address] [place] PCP - General Internal Medicine 03/01/25 documented as of this encounter
--- OUTSIDE RECORDS SUMMARY | 2025-03-29 13:08 | XMS_ITS | Clinical Summary ---
Author Organization [place] [address] [address] [facility]ly [facility] Building Address [address] [facility] [place] [address] Phone Care Team Providers Care Rn Gynecology Name Role Phone Magda Corrigan MD Primary Care Provider [phone] Allergies Active Allergy Reactions Criticality Noted Date [...] as needed for Other (hypoglycemia). 2 Active freestyle (FreeStyle Lancets) 28 gauge lancets Check sugars as directed upto 2 times a day 200 each 1 5 Active traZODone (DESYREL) 50 mg tablet Take 1 tablet (50 mg total) by mouth at bedtime. Active melatonin 3 mg tablet Take 2 tablets (6 mg total) by mouth at bedtime. Active blood-glucose meter kitIndications: Elevated blood sugar Use daily or as directed for monitoring of diabetes. Freestyle lite meter. 1 each 5 Active escitalopram (LEXAPRO) 10 mg tablet Take 1 tablet (10 mg total) by mouth 1 (one) time each day. Active blood sugar diagnostic (FreeStyle Lite Strips) test stripIndication s:Elevated blood sugar USE TO TEST FINGER STICK BLOOD SUGAR as instructed 100 strip 1 5 Active Active Problems Problem Noted Date Diagnosed Date [...] 08/01/2014 Overview (05/25/2024): Ching Reza at the [facility] Mild intellectual disability 05/31/2008 Resolved Problems Problem Noted Date Diagnosed Date Resolved Date Cardiac pacemaker in situ 12/16/2005 Overview (05/25/2024): Cardiology at [facility] Encounters Date Type Department Care Team Description 03/29/2025 Telephone Internal Medicine - [place] [address] [facility], [place] [phone] Magda Corrigan MD 03/28/2025 Telephone Internal Medicine - [place] [address] [facility] [place] [phone] Magda Corrigan MD 03/28/2025 Telephone Internal Medicine - [place] [address] [facility] [place] [phone] Magda Corrigan MD 03/28/2025 Telephone Internal Medicine - [place] [address] [facility] [place] [phone] Magda Corrigan MD 03/28/2025 Telephone Internal Medicine - [place] [address] [place] [address] Magda Corrigan MD 03/27/2025 Telephone Internal Medicine - [place] [address] [place] [phone] Magda Corrigan MD 03/22/2025 Telephone Internal Medicine - [place] [address] [facility] [address] Magda Corrigan MD 03/16/2025 Telephone Internal Medicine - [place] [address] [facility] [place] [address] Magda Corrigan MD 03/15/2025 Telephone Internal Medicine - [place] [address] [facility] [place] [address] Magda Corrigan MD 03/13/2025 Telephone Internal Medicine - [place] [address] [facility] [place] [address] Magda Corrigan MD 03/09/2025 Telephone Internal Medicine - [place] [address] [place] [address] Magda Corrigan MD 03/08/2025 Telephone Internal Medicine - [place] [address] [facility] [phone] Magda Corrigan MD 03/07/2025 Telephone [facility] - [facility] [phone] Magda Corrigan MD 02/27/2025 12:00 PM EDT Office Visit Internal [facility] - [address] [phone] Nathaniel Alan, GRAY Dizziness (Primary Dx) 02/23/2025 Telephone Internal Medicine - [facility] [phone] Aj Devlin MD 02/22/2025 Telephone Internal Medicine - [facility] [phone] Aj Devlin MD 02/22/2025 Telephone Internal Medicine - [facility] [phone] Aj Devlin MD 02/19/2025 [facility] [phone] Merna Anton [place] 02/09/[address] [phone] Aj Devlin MD 01/30/2025 Billing Patient Not Present Internal Medicine - [facility] [phone] Aj Devlin MD Severe episode of recurrent major depressive disorder, without psychotic features (CMS/HCC V24, CMS/HCC V28) (Primary Dx); Anxiety disorder, unspecified type; Post-traumatic stress disorder, unspecified; Unspecified lack of expected normal physiological development in childhood; Cerebral palsy, unspecified type (CMS/HCC V24, CMS/HCC V28); Mild intellectual disabilities; Atrioventricular block, complete (CMS/HCC V24, CMS/HCC V28); Benign neoplasm of liver; Other specified diseases of liver; Hypoglycemia, unspecified 01/30/2025 Tele[facility] [phone] Aj Devlin MD 01/23/[address] [phone] Aj Devlin MD 01/23/[address] [facility] [address] [phone] Aj Devlin MD 01/23/[address] [facility] [address] [phone] Aj Devlin MD 01/18/[address] [facility] [address] [phone] Aj Devlin MD 01/18/[address] [facility] [address] [phone] Aj Devlin MD 01/12/[address] [facility] [address] [phone] Aj Devlin MD 01/11/[address] [phone] Aj Devlin MD from Last 3 Months Immunizations Name Administration [...] DX:Anxiety; COMM ENT: Ching Reza at the [facility] Complete heart block (CMS/HC C V24, CMS/HCC V28) 09/14/2017 DX:Complete heart block (HCC ); COMMENT: PPM implanted Mild intellectual disability 05/31/2008 DX: Mild intellectual disability COVID-19 virus infection 10/10/2020 DX:COVI D-19 virus infection Family History Medical History Relation Name Comments Leukemia Brother Tigre brain tumor Maternal Grandfather Diabetes Mother Other: lupus Mother Diabetes Paternal Grandfather Breast cancer Paternal Grandmother Relation Name Status Comments Brother Tigre Father Alive Maternal Grandfather Maternal Grandmother Mother Paternal Grandfather Paternal Grandmother Social History [...] Orientation Straight 01/23/2025 4: 24 PM EDT Obstetrics History Last Filed Vital Signs Vital Sign Reading Time Taken Comments Blood Pressure 96/56 02/27/2025 1:09 PM EDT Pulse 77 02/27/2025 12:22 PM EDT Temperature 35.8 C (96.5 F) 12/05/2024 2:52 PM EDT Respiratory Rate 19 12/21/2024 3:20 PM EDT Oxygen Saturation 98% 12/05/2024 2:52 PM EDT Inhaled Oxygen Concentration - - Weight 61.9 kg (136 lb 8 oz) 02/27/2025 12:22 PM EDT Height 167.6 cm (5' 6 ) 02/27/2025 12:22 PM EDT Body Mass Index 22.03 02/27/2025 12:22 PM EDT Plan of Treatment Upcoming Encounters Date Type Department Care Team (Late st Contact Info) Description 04/03/2025 10:30 AM EDT Office Visit Internal Medicine - [address] [phone] Danielle Dudley NP [address] [place] [address] 04/11/2025 3:00 PM EDT Office Visit Orthopedic Surgery - [place] [address] [place] [address] [place] [phone] Thomas Solano, DPM [address] [place] [address] 04/30/2025 3:00 PM EDT Office Visit Internal Medicine - [address] [phone] Rosanna Lu NP [address] [place] [address] 06/05/2025 2:30 PM EST Office Visit [facility] - [facility] [phone] Nathaniel Alan NP [address] [place] [address] 06/19/2025 3:00 PM EST Office Visit Internal Medicine - [address] [phone] Magda Corrigan MD [address] [place] [address] Health Maintenance Due Date Last Done Comments Hepatitis B Vaccines (1 of 3 - 19+ 3-dose series) 2005 Pneumococcal Vaccine: Pediatrics (0 to 5 Years) and At-Risk Patients (6 to 49 Years) (1 of 2 - PCV) 2005 Social Influencers of Health Screening 07/11/2022 COVID-19 Vaccine (2 - season) 2024 11/06/2020 Depression Screening 08/02/2024 Influenza Vaccine (#1) 2025 , 08/25/2023, 04/15/2023, Additional history exists DTaP,Tdap,and Td Vaccines (3 - Td or Tdap) 10/08/2027 10/07/2017, 01/06/2007 Cholesterol Screening (Lipid Panel) 03/10/2028 03/10/2023 Cervical Cancer Screening: HPV 05/13/2028 05/13/2023 HIV Screening Completed 2023, 2023 Hepatitis C Screening Completed 2023 HIB Vaccines Aged Out No longer eligi [...] Procedure Name Priority Date/Time Associated Diagnosis Comments HEPATITIS C SCREENING Routine 2023 HIV SCREENING Routine 2023 HPV Routine 05/13/2023 LIPID PANEL Routine 03/10/2023 from Last 3 Months or Most Recently Relevant to Health Maintenance Results * HIV Screening (2023) Pathologist [facility] HIV Screening abstracted [facility] Provider HEALTH MAINTENANCE Final Result * Hepatitis C Screening (2023) [facility] Hepatitis C Screening abstracted [facility] Provider HEALTH MAINTENANCE Final Result * Cervical Cancer Screening: HPV (05/13/2023) [facility] Cervical Cancer Screening: HPV abstracted, negative [facility] Provider HEALTH MAINTENANCE Final Result * Lipid panel (03/10/2023) [facility] LDL/HDL Ratio 2 0 - 4 Triglycerides 66 0 - 150 mg/dL Cholesterol 151 0 - 200 mg/dL HDL 69 >=40 mg/dL LDL Cholesterol 69 0 - 100 mg/dL Blood Venous blood specimen / Unknown Result [facility] Provider LAB BLOOD ORDERABLES Tami l Result from Last 3 Months or Most Recently Relevant to Health Maintenance Insurance [facility] Care Teams Rn Gynecology Relationship Specialty Start Date End Date Magda Corrigan MD [address] [place] [address] PCP - General Internal Medicine 03/01/25
--- OUTSIDE RECORDS SUMMARY | 2025-03-29 13:08 | XMS_ITS | Encounter Summary ---
Author Organization [facility] Address [address] [place] [address] Care Team Providers Care Survey Crew Chief Name Role Phone Magda Corrigan MD Primary Care Provider [phone] Reason for Visit * Reason Onset Date Comments Request For Order(s) 03/07/2025 [facility] Encounter Details Date Type Department Care Team (Late st Contact Info) Description 03/07/2025 Telephone Internal Medicine - [place] [address] [place] [address] Magda Corrigan MD [address] [place] [phone] Social History Tobacco Use Types Packs/Day Years [...] encounter Progress Notes * Loren Brown - 03/07/2025 10:33 AM EDT Orders from [facility] placed in Aj Devlin MD bin. Please complete and fax back to [phone]. Thank you documented in this encounter Plan of Treatment Upcoming Encounters Date Type Department Care Team (Late st Contact Info) Description 04/03/2025 10:30 AM EDT Office Visit Internal Medicine - [address] [phone] Danielle Dudley NP [address] [place] [address] 04/11/2025 3:00 PM EDT Office Visit Orthopedic Surgery - [place] [address] [place] [address] [place] [phone] Thomas Solano, DPM [address] [place] [phone] 04/30/2025 3:00 PM EDT Office Visit Internal Medicine - [address] [phone] Rosanna Lu NP [address] [place] [address] 06/05/2025 2:30 PM EST Office Visit Internal Medicine - [address] [phone] Nathaniel Alan NP [address] [place] [address] 06/19/2025 3:00 PM EST Office Visit Internal Medicine - [address] [phone] Magda Corrigan MD [address] [place] [address] documented as of this encounter Visit Diagnoses Not on filedocumented in this encounter Care Teams Survey Crew Chief Relationship Specialty Start Date End Date Magda Corrigan MD [address] [facility] [place] [place] PCP - General Internal Medicine 03/01/25 documented as of this encounter
--- OUTSIDE RECORDS SUMMARY | 2025-03-29 13:08 | XMS_ITS | Encounter Summary ---
Author Organization [facility] Address [address] [place] [address] Care Team Providers Care Nuclear Radiation Engineer Name Role Phone Magda Corrigan MD Primary Care Provider [phone] Reason for Visit * Reason Onset Date Comments information needed/order from 03/09/25 Encounter Details Date Type Department Care Team ([facility] Contact Info) Description 03/29/2025 Telephone Internal Medicine - [place] [address] [place] [address] Magda Corrigan MD [address] [place] [phone] Social History Tobacco Use Types Packs/Day Years [...] encounter Progress Notes * Kirsten Villeda - 03/29/2025 9:37 AM EDT New copy of order placed in Dr. Kauffmans bin for review * Tamiko Alexander - 03/29/2025 9:25 AM EDT Malika from a [employer] called to request that order number [id number] from 03/09/25 be refaxed [phone] they did not receive it. Thank you documented in this encounter Plan of Treatment Upcoming Encounters Date Type Department Care Team (Late st Contact Info) Description 04/03/2025 10:30 AM EDT [facility] [address] [place] [address] Danielle Dudley, GRAY [address] [place] [address] 04/11/2025 3:00 PM EDT Office Visit Orthopedic Surgery - [address] [phone] Thomas Solano, DPM [address] [place] [address] 04/30/2025 3:00 PM EDT [facility] [address] [phone] Rosanna Lu, GRAY [address] [place] [address] 06/05/2025 2:30 PM EST Office Visit Internal Medicine - [address] [phone] Nathaniel Alan, GRAY [address] [place] [address] 06/19/2025 3:00 PM EST Office Visit Internal Medicine - [facility] [address] [facility] [place] [phone] Magda Corrigan MD [address] [facility] [place] documented as of this encounter Visit Diagnoses Not on filedocumented in this encounter Care Teams Nuclear Radiation Engineer Relationship Specialty Start Date End Date Magda Corrigan MD [address] [facility] [place] PCP - General Internal Medicine 03/01/25 documented as of this encounter
--- OUTSIDE RECORDS SUMMARY | 2025-03-29 13:08 | XMS_ITS | Encounter Summary ---
Author Organization [facility] Address [address] [place] [address] Care Team Providers Care Dexigraph Operator Name Role Phone Magda Corrigan MD Primary Care Provider [phone] Reason for Visit * Reason Onset Date Comments Forms/questionnaires 02/22/2025 Encounter Details Date Type Department Care Team (Late st Contact Info) Description 02/22/2025 [facility] [address] [place] [phone] Aj Devlin MD [address] [place] [address] Social History Tobacco Use Types Packs/Day Years [...] encounter Progress Notes * Kirsten Villeda - 02/22/2025 3:40 PM EDT Orders from [facility] placed in MD rona Keyes. Please complete and fax back to [phone]. Thank you documented in this encounter Plan of Treatment Upcoming Encounters Date Type Department Care Team (Late st Contact Info) Description 04/03/2025 10:30 AM EDT [facility] [address] [phone] Danielle Dudley NP [address] [place] [address] 04/11/2025 3:00 PM EDT Office Visit Orthopedic Surgery - [place] [address] [place] [address] [place] [phone] Thomas Solano, DPM [address] [place] [phone] 04/30/2025 3:00 PM EDT [facility] [phone] Rosanna Lu NP [address] [place] [address] 06/05/2025 2:30 PM EST [facility] [address] [place] [address] Nathaniel Alan NP [address] [place] [address] 06/19/2025 3:00 PM EST [facility] [phone] Magda Corrigan MD [address] [place] [address] documented as of this encounter Visit Diagnoses Not on filedocumented in this encounter Care Teams Dexigraph Operator Relationship Specialty Start Date End Date Magda Corrigan MD [address] [place] [address] PCP - General Internal Medicine 03/01/25 documented as of this encounter
--- OUTSIDE RECORDS SUMMARY | 2025-03-29 13:09 | XMS_ITS | Encounter Summary ---
Author Organization [facility] [address] Address [address] [place] [address] Care Team Providers Care Logging Equipment Operator Name Role Phone Magda Corrigan MD Primary Care Provider [phone] Reason for Visit * Reason Onset Date Comments Faxed Order 03/28/2025 [facility] ([id number]) Encounter Details Date Type Department Care Team (Late st Contact Info) Description 03/28/2025 Telephone Internal Medicine - [place] [address] [place], [place] [phone] Magda Corrigan MD [address] [place], [place] Social History Tobacco Use Types Packs/Day [...] Progress Notes * Kirsten Villeda - 03/28/2025 1:37 PM EDT Orders from [facility] placed in MD rona Keyes. Please complete and fax back to [phone]. Thank you documented in this encounter Plan of Treatment Upcoming Encounters Date Type Department Care Team (Late st Contact Info) Description 04/03/2025 10:30 AM EDT Office Visit Internal Medicine - [address] [phone] Danielle Dudley NP [address] [place] [address] 04/11/2025 3:00 PM EDT Office Visit Orthopedic Surgery - [place] 250 [address] [facility] [address] [place] [phone] Thomas Solano, DPM [address] [place] [phone] 04/30/2025 3:00 PM EDT Office Visit Internal Medicine - [address] [phone] Rosanna Lu NP [address] [place] [address] 06/05/2025 2:30 PM EST Office Visit Internal Medicine - [address] [phone] Nathaniel Alan NP [address] [place] [address] 06/19/2025 3:00 PM EST Office Visit Internal Medicine - [address] [phone] Magda Corrigan MD [address] [place] [address] documented as of this encounter Visit Diagnoses Not on filedocumented in this encounter Care Teams Logging Equipment Operator Relationship Specialty Start Date End Date Magda Corrigan MD [address] [facility] [place] PCP - General Internal Medicine 03/01/25 documented as of this encounter
--- OUTSIDE RECORDS SUMMARY | 2025-03-29 13:09 | XMS_ITS | Encounter Summary ---
Author Organization [facility] Address [address] [place] [address] Care Team Providers Care Service Writer Advisor Name Role Phone Magda Corrigan MD Primary Care Provider [phone] Reason for Visit * Reason Onset Date Comments Faxed Order 03/28/2025 [facility] ([id number]) Encounter Details Date Type Department Care Team (Late st Contact Info) Description 03/28/2025 Telephone Internal Medicine - [place] [address] [place], [place] [phone] Magda Corrigan MD [address] [place], [place] Social History Tobacco Use Types Packs/Day [...] Keyes. Please complete and fax back to [phone]. Thank you documented in this encounter Plan of Treatment Upcoming Encounters Date Type Department Care Team (Late st Contact Info) Description 04/03/2025 10:30 AM EDT Office Visit Internal Medicine - [address] [phone] Danielle Dudley NP [address] [place] [address] 04/11/2025 3:00 PM EDT Office Visit Orthopedic Surgery - [place] 250 [address] [facility] [address] [place] [phone] Thomas Solano, DPM [address] [place] [phone] 04/30/2025 3:00 PM EDT Office Visit Internal Medicine - [address] [phone] Rosanna Lu NP [address] [place] [address] 06/05/2025 2:30 PM EST Office Visit Internal Medicine - [address] [phone] Nathaniel Alan NP [address] [place] [address] 06/19/2025 3:00 PM EST Office Visit Internal Medicine - [address] [phone] Magda Corrigan MD [address] [place] [address] documented as of this encounter Visit Diagnoses Not on filedocumented in this encounter Care Teams Service Writer Advisor Relationship Specialty Start Date End Date Magda Corrigan MD [address] [facility] [place] PCP - General Internal Medicine 03/01/25 documented as of this encounter
--- OUTSIDE RECORDS SUMMARY | 2025-03-29 13:09 | XMS_ITS | Encounter Summary ---
Author Organization [facility] Address [address] [place] [address] Care Team Providers Care Wine Pasteurizer Name Role Phone Magda Corrigan MD Primary Care Provider Reason for Visit * Reason Comments Faxed Order [facility](Cert/POC [id number]) Encounter Details Date Type Department Care Team ([facility] st Contact Info) Description 03/28/2025 Telephone Internal Medicine - [place] [address] [place] [address] Magda Corrigan MD [address] [place] [phone] Social History Tobacco Use Types Packs/Day Years [...] of this encounter Progress Notes * Kirsten Ronal - 03/28/2025 1:39 PM EDT Orders from [facility] placed in MD rona Keyes. Please complete and fax back to [phone]. Thank you documented in this encounter Plan of Treatment Upcoming Encounters Date Type Department Care Team (Late st Contact Info) Description 04/03/2025 10:30 AM EDT Office Visit Internal Medicine - [address] [phone] Danielle Dudley NP [address] [place] [address] 04/11/2025 3:00 PM EDT Office Visit Orthopedic Surgery - [place] [address] [facility] [address] [place] [address] [phone] Thomas Solano, DPM [address] [place] [phone] 04/30/2025 3:00 PM EDT Office Visit Internal Medicine - [address] [phone] Rosanna Lu NP [address] [place] [address] 06/05/2025 2:30 PM EST Office Visit Internal Medicine - [address] [phone] Nathaniel Alan NP [address] [place] [address] 06/19/2025 3:00 PM EST Office Visit Internal Medicine - [address] [phone] Magda Corrigan MD [address] [place] [address] documented as of this encounter Visit Diagnoses Not on filedocumented in this encounter Care Teams Wine Pasteurizer Relationship Specialty Start Date End Date Magda Corrigan MD [address] [place], [place] PCP - General Internal Medicine 03/01/25 documented as of this encounter
--- OUTSIDE RECORDS SUMMARY | 2025-03-29 13:09 | XMS_ITS | Encounter Summary ---
Author Organization [facility] Address [address] [place] [address] Care Team Providers Care Practical Nursing Faculty Name Role Phone Magda Corrigan MD Primary Care Provider [phone] Reason for Visit * Reason Onset Date Comments Faxed Order 03/22/2025 [facility] Encounter Details Date Type Department Care Team ([facility] Contact Info) Description 03/22/2025 Telephone Internal Medicine - [place] [address] [place] [address] Magda Corrigan MD [address] [place], [place] Social History Tobacco Use Types Packs/Day [...] of this encounter Progress Notes * Kirsten Cristobal 03/22/2025 2:34 PM EDT Orders from [facility] placed in Magda Corrigan MD bin. Please complete and fax back to [phone]. Thank you. documented in this encounter Plan of Treatment Upcoming Encounters Date Type Department Care Team (Late st Contact Info) Description 04/03/2025 10:30 AM EDT [facility] [address] [place] [address] Danielle Dudley NP [address] [place] [address] 04/11/2025 3:00 PM EDT Office Visit Orthopedic Surgery - [place] [address] [place] [phone] Thomas Solano, DPM [address] [place] [phone] 04/30/2025 3:00 PM EDT [facility] [address] [place] [address] Rosanna Lu, GRAY [address] [place] [address] 06/05/2025 2:30 PM EST [facility] [address] [place] [address] Nathaniel Alan, GRAY [address] [place] [address] 06/19/2025 3:00 PM EST Office [facility] [address] [place] [address] Magda Corrigan MD [address] [place] [address] documented as of this encounter Visit Diagnoses Not on filedocumented in this encounter Care Teams Practical Nursing Faculty Relationship Specialty Start Date End Date Magda Corrigan MD [address] [facility] [place] [address] PCP - General Internal Medicine 03/01/25 documented as of this encounter
--- OUTSIDE RECORDS SUMMARY | 2025-03-29 13:09 | XMS_ITS | Encounter Summary ---
Author Organization [facility] Address [address] [place] [address] Care Team Providers Care Claim Trainee Name Role Phone Magda Corrigan MD Primary Care Provider [phone] Reason for Visit * Reason Onset Date Comments Request For Order(s) 03/16/2025 [facility] Encounter Details Date Type Department Care Team (Late st Contact Info) Description 03/16/2025 Telephone Internal Medicine - [facility] [address] [place] [address] Magda Corrigan MD [address] [place] [address] Social History Tobacco Use Types Packs/Day Years [...] encounter Progress Notes * Loren Brown - 03/16/2025 11:37 AM EDT Orders from [facility] placed in Aj Devlin MD bin. Please complete and fax back to [phone]. Thank you documented in this encounter Plan of Treatment Upcoming Encounters Date Type Department Care Team (Late st Contact Info) Description 04/03/2025 10:30 AM EDT Office Visit Internal Medicine - [address] [phone] Danielle Dudley NP [address] [place] [address] 04/11/2025 3:00 PM EDT Office Visit Orthopedic Surgery - [place] [address] [place] [address] [place] [phone] Thomas Solano, DPM [address] [place] [phone] 04/30/2025 3:00 PM EDT Office Visit Internal Medicine - [address] [phone] Rosanna Lu NP [address] [place] [address] 06/05/2025 2:30 PM EST Office Visit Internal Medicine - [address] [phone] Nathaniel Alan NP [address] [place] [address] 06/19/2025 3:00 PM EST Office Visit Internal Medicine - [address] [phone] Magda Corrigan MD [address] [place] [address] documented as of this encounter Visit Diagnoses Not on filedocumented in this encounter Care Teams Claim Trainee Relationship Specialty Start Date End Date Magda Corrigan MD [address] [facility] [place] [place] PCP - General Internal Medicine 03/01/25 documented as of this encounter
== END 2025-03-29 13:28 | disposition home or self-care (01) ==
LOC: HO.HOS 12:08
PROVIDERS: PCP Internal Medicine; Visit Provider Physical Medicine & Rehabilitation
DX: R26.9 Unspecified abnormalities of gait and mobility (principal); G80.1 Spastic diplegic cerebral palsy
CPT/HCPCS: 99214

== ENCOUNTER → 2025-03-29 13:08 | Outpatient (BNV) | payer OTHER, SELFPAY | PROVIDERS: PCP Internal Medicine; Visit Provider Radiology Diagnostic Radiology | DX: M25.559 Pain in unspecified hip (principal); M54.9 Dorsalgia, unspecified; M79.606 Pain in leg, unspecified; R26.9 Unspecified abnormalities of gait and mobility | CPT/HCPCS: 72100; 73522; 73590 ==

== ENCOUNTER 2025-06-07 11:55 | Outpatient (AMB) | payer OTHER, SELFPAY ==
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
[2025-06-07 12:05] VITALS: BMI 21.0
--- OUTSIDE RECORDS SUMMARY | 2025-06-07 14:53 | XMS_ITS | Data Portability ---
Author Organization [place] [facility] Address [address] [place] [address] Care Team Providers Care Filter Screen Cleaner Name Role Phone DAVION LUDIVINA Primary Care Provider Assessment Encounter Date Assessment Date Assessment LastModified by Organization Details LastModified Time 10/07/2020 10/07/2020 Overview/History :This is a 34-year-old female that contrary [facility] her evaluation, she has been having symptoms concerning for possible COVID since 2:30 a.m. last night. She is reported cough, sore throat and runny nose. She has been taking utcb-dys-hqsazyy Cough medication and staying well hydrated with [...] hydrated. I have advised her to take gwws-wzg-kkphzoi medication for her cough as she has been doing and also to treat her low grade fevers with hnxg-ycq-rycobou Tylenol. I did explain that her COVID tests would be back in the next 3-5 days and that she will get a phone call with those results. She verbalized understanding of discharge instructions. In order to obtain further information and compare any laboratory results/values, I have accessed patient records on the [facility]. This information was pertinent in my medical decision making today. Time On Scene with Patient: 00:22:05 Proper Personal Protective Equipment (PPE), including gloves, eye protection, N95 mask, gown, and shoe covers were donned and doffed appropriately and all equipment cleaned using approved technique with germicidal disposable wipes prior to and after care of this patient according to [facility]'s infection prevention protocols. [email or web address] Not available 10/07/2020 18:02:17 Plan of Treatment Reminders Order Date Submit Date Provider Last Modified By Organization Details Last Modified Time Details Appointments None recorded. Lab SARS CoV 2 RNA (COVID-19), QL, [employer]-PCR, respiratory specimen 2020 [email or web address] [facility] (Centralized Electronic Ordering - All Locations), Patient Can Go To The Location Of Their Choice, [id number] 09:20:29 Referral None recorded. Procedures None recorded. Surgeries None recorded. Imaging None recorded. Medication Orders acetaminoph en 325 mg tablet 2020 021 [email or web address] [id number], [address] [place], [address], 17:43:02 Patient TargetsNo targets recorded. Patient InstructionsNo [...] Go To The Location Of Their Choice, [id number] 10/09/2020 07:40:48 10/08/1910/09/2020 covid -19 (nove l coron aviru s) PCR covid-19 PCR result (neg) abnormal POSIT [place] [facility]it [place] for detec tion of 2019- novel Coron aviru s (2018 -nCoV ) by RT-PC Esthela lincoln to the [facility]. All test resul ts must be corre lated with clini adria findi ngs. This test has been autho rized by the FDA under an Emerg ency Use Autho rizat ion (EUA) for use by autho rized labor atori es. Testi ng perfo rmed on the Holog ic Panth er Aptim a assay utili zing trans cript ion-m ediat ed ampli ficat ion (TMA) . Not Available [facility] (Centralized Electronic Ordering - All Locations) Patient Can Go To The Location Of Their Choice, [id number] 10/09/2020 07:40:48 Result Notes None recorded. Medical [...] Not Available Not Available Not Available FreeStyle [place] Lite kit USE TO TEST BLOOD SUGARS TWICE A DAY FREESTYLE FREEDOM active Not Available Not Available No t Available Baqsimi 3 mg/actuation nasal spray PLEASE SEE ATTACHED FOR DETAILED DIRECTIONS active Not Available Not Available N ot Available Vitals Date Recorded Respiratory rate Heart rate Oxygen saturation Oxygen saturation in Arterial blood by Pulse oximetry Body temperature Systolic And Diastolic Provider Name and Address Organization Details Last Updated DateTime 1 18 /min 78 /min 98 % 98 % 99.6 [degF] 124/78 mm[Hg] Not Available [facility] 18:08:46 Social History None recorded. Functional Status None recorded. Mental Status None recorded. Family History Nothing Reported. Medical History No medical history recorded. Gynecological HistoryNo gynecological history recorded. Obstetrics History GPAL:G 0 P 0 0 0 0 Past Encounters Encounter ID Performer Location Encounter Start Date Encounter Closed Date Diagnosis/Indication Diagnosis SNOMED-CT Code Diagnosis ICD10 Code Diagnosis IMO Codes Diagnosis Note [id number] MARYLIN MCGRAW NP SPR - HOME [address] [facility] [facility] [place] [id number] 10/07/2020 17:13:05 10/10/2020 12:49:44 Viral upper respiratory tract infection 606729666 J06.9 Exposure t o communicable disease 182212605 Z20.822 Health Concerns Section Related Observation LastModified by Organization Detai ls LastModified Time None Recorded Concern Status LastModified by Organization Details LastModified Time None Recorded Advance Directives Directive None Recorded Payers Insurance Date Sequence Insurance Name Policy Number Policy Negro Covered Member ID Negro Member ID Guarantor Name 10/07/2020 1 *SELF PAY* Jacquelinekarthikeyan Hawkins [id number] Jacqueline Hawkins 10/10/2020 1 [place] Jacqueline A Ross [id number] Jacqueline Hawkins 10/16/2020 1 [facility] NET PLAN (MEDICAID HMO) [place] Jacqueline A Ross [id number] Jacqueline Hawkins 10/10/2020 1 [facility] NET PLAN (MEDICAID HMO) [place] Jacqueline A Ross [id number] Jacqueline Hawkins 10/16/2020 2 [place] Jacqueline A Ross [id number] Jacqueline Malika Ross 10/16/2020 2 [place] Jacqueline A Ross [id number] Jacqueline Hawkins 10/16/2020 1 [facility] (MEDICAID HMO) [place] Jacqueline A Ross [id number] Jacqueline Brennane Ross 10/16/2020 1 [place] Jacqueline A Ross [id number] Jacqueline Brennane Ross 10/16/2020 2 [place] Jacqueline A Ross [id number] Jacqueline Brennane Ross 10/16/2020 1 [facility] NET PLAN (MEDICAID HMO) [place] Jacqueline A Ross [id number] Jacqueline Hawkins Notes Date Note Type Note Provider Name and Address Organization Details Recorded Time 10/07/2020 text/html COVID-19 Symptom s December 2019Reported by Patient This is [facility] 34[facility] 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 She also has some mild developmental delay. She contacted [facility] as she began to have symptoms of cough, sore throat and runny nose last night. She tells me that there is someone in her apartment building that recently tested positive for COVID-19. She wanted to be tested so that she is able to continue to attend her day care program. She has been using Delsym with good relief of her cough. MARYLIN MCGRAW, GRAY [address], [place], [address], [place] [facility] 10/07/2020 18:11:08 OBGyn Episode No OBEpisode recorded.
--- OUTSIDE RECORDS SUMMARY | 2025-06-07 14:53 | XMS_ITS | Clinical Summary ---
Author Organization [place] [address] Megan arevalo [facility] Building Address [address] [facility] [place] [place] [address] Phone Care Team Providers Care Patient Observation Assistant Name Role Phone Magda Corrigan MD Primary Care Provider [phone] Allergies Active Allergy Reactions Criticality Noted Date Comments Propofol 05/28/2021 Medications hydrOXYzine HCL (ATARAX) 25 mg tablet Take 1 tablet (25 mg total) by mouth 1 (one) time each day. In PM 4 Active UNABLE TO FIND Blood Glucose Calibration (FreeStyle Control Solution) Liquid, USE TO CALIBRATE METER 3 Active freestyle (FreeStyle Lancets) 28 gauge lancets [...] as instructed 100 strip 1 5 Active gabapentin (NEURONTIN) 100 mg capsule Take 1 capsule (100 mg total) by mouth at bedtime. at bedtime 5 Active Active Problems Problem Noted Date [...] device. PPM implanted Anxiety 08/01/2014 Overview (05/25/2024): Chnig Reza at the [facility] Mild intellectual disability 05/31/2008 Resolved Problems Problem Noted Date Diagnosed Date Resolved Date Cardiac pacemaker in situ 12/16/2005 Overview (05/25/2024): Cardiology at [facility] Encounters Date Type Department Care Team Description 05/21/2025 Telephone Internal [facility] [address] [facility] [place] [phone] Magda Corrigan MD 05/10/2025 [facility] [address] [place], [place] [address], [place] [phone] Magda Corrigan MD 04/30/2025 3:00 PM EDT Office Visit [facility] [address] [place], [place] [address], [place] [phone] Rosanna Lu NP Hypotension, unspecified hypotension type (Primary Dx); Cerebral palsy, unspecified type (CMS/HCC V24, CMS/HCC V28); Anxiety; Insomnia, unspecified type; Complete heart block (CMS/HCC V24, CMS/HCC V28); Urinary incontinence, unspecified type 04/23/2025 Telephone Internal Medicine - [place] [address] [facility] [place], [place] [phone] Magda Corrigan MD 04/20/2025 Telephone Internal Medicine - [place] [address] [place] [phone] Magda Corrigan MD 04/19/2025 [facility] [place] [address] [facility] [place] [phone] Magda Corrigan MD 04/17/2025 Telephone Internal Medicine - [place] [address] [facility] [place] [phone] Magda Corrigan MD 04/17/2025 Telephone Internal Medicine - [place] [address] [facility] [place] [phone] Magda Corrigan MD 04/12/2025 Telephone Internal Medicine - [place] [address] [place] [phone] Magda Corrigan MD 04/12/2025 Telephone Internal Medicine - [facility] [address] [place], [place] [phone] Magda Corrigan MD 04/10/2025 Telephone Internal Medicine - [facility] [address] [facility], [place] [phone] Magda Corrigan MD 04/03/2025 10:30 AM EDT Office Visit Internal Medicine - [facility] [address] [place] [address] Danielle Dudley NP Hospital discharge follow-up (Primary Dx); Hypotensive episode; Complete heart block (CMS/HCC V24, CMS/HCC V28); Developmental delay; Cerebral palsy, unspecified type (CMS/HCC V24, CMS/HCC V28) 04/03/2025 Telephone Internal Medicine - [place] [address] [facility], [place] [phone] Magda Corrigan MD 03/29/2025 Telephone Internal Medicine - [place] [address] [facility] [place] [address] Magda Corrigan MD 03/28/2025 Telephone Internal Medicine - [place] [address] [facility], [place] [phone] Magda Corrigan MD 03/28/2025 Telephone Internal Medicine - [place] [address] [facility], [place] [phone] Magda Corrigan MD 03/28/2025 Telephone Internal Medicine - [place] [address] [facility] [place] [address] Magda Corrigan MD 03/28/2025 Telephone Internal Medicine - [facility] [address] [place], [place] [phone] Magda Corrigan MD 03/27/2025 Telephone Internal Medicine - [facility] [address] [place], [place] [phone] Magda Corrigan MD 03/22/2025 Telephone Internal Medicine - [place] [address] [facility] [place] [address] Magda Corrigan MD 03/16/2025 [facility] [address] [place] [phone] Magda Corrigan MD 03/15/2025 [facility] [address] [phone] Magda Corrigan MD 03/13/2025 [facility] [address] [phone] Magda Corrigan MD 03/09/2025 [facility] [address] [place] [address] Magda Corrigan MD 03/08/2025 [facility] [address] [place] [phone] Magda Corrigan MD 03/07/2025 [facility] [address] [phone] Magda Corrigan MD from Last 3 Months Immunizations Immunization Administration Dates Next Due Influenza Quadravalent, MDCK [...] DX:Anxiety; COMM ENT: Ching Reza at the [facility] Complete heart block (CMS/HC C V24, [...] Sign Reading Time Taken Comments Blood Pressure 105/61 04/30/2025 3:20 PM EDT aut o cuff Pulse 68 04/30/2025 3:20 PM EDT auto cuff Temperature 36.9 C (98.4 F) 04/30/2025 3:20 PM EDT Respiratory Rate 19 12/21/2024 3:20 PM EDT Oxygen Saturation 98% 12/05/2024 2:52 PM EDT Inhaled Oxygen Concentration - - Weight 61.3 kg (135 lb 1.6 oz) 04/30/2025 3:20 P M EDT Height 167.6 cm (5' 6 ) 02/27/2025 12:2 2 PM EDT Body Mass Index 21.81 02/27/2025 12:22 PM EDT Plan of Treatment Upcoming Encounters Date Type Department Care Team (Late st Contact Info) Description 06/13/2025 3:00 PM EST Office Visit Orthopedic Surgery - [place] [address] [facility] [address] [place] [phone] Thomas Solano, DPM 175 [facility] [address] [place] [address] 06/19/2025 3:00 PM EST Office Visit Internal Medicine - [facility] [address] [place], [place] [phone] Magda Corrigan MD [address] [place], [place] Health Maintenance Due Date Last Done Comments Hepatitis B Vaccines (1 of 3 - 19+ 3-dose series) 2005 HPV Vaccines (1 - 3-dose SCDM series) 2013 Social Influencers of Health Screening 07/11/2022 Depression Screening 08/02/2024 COVID-19 Vaccine ( season) 2025 11/06/2020 Influenza Vaccine (#1) 2025 , 08/25/2023, 04/15/2023, Additional history exists DTaP,Tdap,and Td Vaccines (3 - Td or Tdap) 10/08/2027 10/07/2017, 01/06/2007 Cholesterol Screening (Lipid Panel) 03/10/2028 03/10/2023 Cervical Cancer Screening: HPV 05/13/2028 05/13/2023 RSV Immunization Adult Patients (1 - 1-dose 75+ series) 2061 HIV Screening Completed 2023, 2023 Hepatitis C [...] on patient's age to complete this topic Pneumococcal Vaccine: Pediatrics (0 to 5 Years) and At-Risk Patients (6 to 49 Years) Aged Out No longer eligible based on patient's age to complete this topic RSV Immunization Patients Under 20 months Aged Out No longer eligible based on patient's age to complete this topic Varicella Vaccines Aged Out No longer eligible based on patient's age to complete this topic Procedures Procedure Name Priority Date/Time Associated Diagnosis Comments EXTERNAL XRAY REPORT 03/29/2025 EXTERNAL XRAY REPORT 03/29/2025 EXTERNAL XRAY REPORT 03/29/2025 EXTERNAL XRAY REPORT 03/29/2025 HEPATITIS C SCREENING Routine 2023 HIV SCREENING Routine 2023 HPV Routine 05/13/2023 LIPID PANEL Routine 03/10/2023 from Last 3 Months or Most Recently Relevant to Health Maintenance Results * External Xray Report (03/29/2025) Only the most recent of4 resultswithin the time period is included. Anatomical Region Laterality Modality Radiographic Yesenia ging Provider [place] [facility] IMG XR PROCEDURES Final Result * HIV Screening (2023) Pathologist [facility] HIV Screening abstracted [facility] Provider HEALTH MAINTENANCE Final Result * Hepatitis C Screening (2023) Pathologist [facility] Hepatitis C Screening abstracted [facility] Provider HEALTH MAINTENANCE Final Result * Cervical Cancer Screening: HPV (05/13/2023) [facility] Cervical Cancer Screening: HPV abstracted, negative [facility] Provider HEALTH MAINTENANCE Final Result * Lipid panel (03/10/2023) [facility] LDL/HDL Ratio 2 0 - 4 Triglycerides 66 0 - 150 mg/dL Cholesterol 151 0 - 200 mg/dL HDL 69 >=40 mg/dL LDL Cholesterol 69 0 - 100 mg/dL Blood Venous blood specimen / Unknown us Historical Provider LAB BLOOD ORDERABLES Tami l Result from Last 3 Months or Most Recently Relevant to Health Maintenance Insurance [facility] [employer] Care Teams Patient Observation Assistant Relationship Specialty Start Date End Date Magda Corrigan MD [address] [facility] [place] [address] PCP - General Internal Medicine 03/01/25
== END 2025-06-07 12:59 | disposition home or self-care (01) ==
PROVIDERS: PCP Internal Medicine; Visit Provider Physical Medicine & Rehabilitation
DX: G80.1 Spastic diplegic cerebral palsy (principal)
CPT/HCPCS: 99213

== ENCOUNTER → 2025-06-07 11:55 | Outpatient (BNVA) | payer OTHER, SELFPAY | PROVIDERS: PCP Internal Medicine; Visit Provider Physical Medicine & Rehabilitation | DX: G80.1 Spastic diplegic cerebral palsy (principal) | CPT/HCPCS: 99212 ==

== ENCOUNTER 2025-06-22 11:04 | Outpatient (AMB) | payer OTHER, SELFPAY ==
--- OUTSIDE RECORDS SUMMARY | 2025-06-16 23:59 | XMS_ITS | Continuity of Care Document ---
Author Organization [facility] Address [address] [place] [address]- Care Team Providers Care Insole Beveler Name Role Phone Magda Corrigan MD Primary Care Physician Encounter [facility] Date(s): 05/17/25 - 06/16/25 [facility] [address] [place] [address] Encounter Type: Triage Allergies, Adverse Reactions, Alerts Substance Criticality Severity Reaction Reaction Severity Status propofol Active Medications escitalopram 20 mg oral tablet 1 tablet = 20 mg, By Mouth, Daily in AM Start Date: 05/08/25 Status: Ordered Medication Dispense Status: Completed Total Allowed Fills: 1 Fills Dispensed: 0 gabapentin 100 mg oral capsule TAKE 1 CAPSULE BY MOUTH ONCE DAILY AT BEDTIME Start Date: 03/26/25 Status: Ordered Medication Dispense Status: Completed Total Allowed Fills: 1 Fills Dispensed: 0 glucose 45% oral gel = 15 Gm, By Mouth, Once, PRN as needed for low blood sugar, Use as needed for low sugar or symtpomsof lightheadedness, sweating, palpitations and nausea., # 33 Gm, 3 Refills, Soft Stop, 05/08/25 2:57:00 PM EDT, Gel, [place], [place] - [phone], Partial fill upon patient request if the prescription is for a schedule II opioid drug., 168, cm, 05/08/25 14:38:00 EDT, Height, 58.6, kg, 05/08/25 11:32:00 EDT, Dry Weight Start Date: 05/08/25 Status: Ordered Medication Dispense Status: Completed Quantity: 33.0 Unit: g Total Allowed Fills: 4 Fills Dispensed: 0 hydrOXYzine hydrochloride 25 mg oral tablet 1 tablet = 25 mg, By Mouth, Daily, 0 Refills, Maintenance, 05/08/25 7:35:00 AM EDT, Partial fill upon patient request if the prescription is for a schedule II opioid drug. Start Date: 05/08/25 Status: Ordered Medication Dispense Status: Completed Total Allowed Fills: 1 Fills Dispensed: 0 melatonin 3 mg oral tablet 2 tablet = 6 mg, By Mouth, Daily at bedtime, # 30 tablet, 0 Refills, Maintenance, 10/05/23 10:01:00 PM EST, Partial fill upon patient request if the prescription is for a schedule II opioid drug. Start Date: 10/05/23 Status: Ordered Medication Dispense Status: Completed Quantity: 30.0 Unit: tablet Total Allowed Fills: 1 Fills Dispensed: 0 propranolol 10 mg oral tablet 10 mg, 1, tablet, By Mouth, 2 times a day, # 180 tablet, Refills 0, Maintenance, 04/27/24 3:55:00 PMEDT, Partial fill upon patient request if the prescription is for a schedule II opioid drug. Start Date: 04/27/24 Status: Ordered Medication Dispense Status: Completed Quantity: 180.0 Unit: tablet Total Allowed Fills: 1 Fills Dispensed: 0 Trazodone 1-2 tablets, By Mouth, Daily at bedtime, 0 Refills, Maintenance, 09/28/24 1:44:00 PM EST, Partial fill upon patient request if the prescription is for a schedule II opioid drug. Start Date: 09/28/24 Status: Ordered Medication Dispense Status: Completed Total Allowed Fills: 1 Fills Dispensed: 0 Problem List Condition Confirmation Course Effective Dates Status Health St [facility] Informant Anxiety Confirmed Active Cardiac pacemaker Confirmed Active Chest pain Confirmed Active Depression Confirmed Active Heart failure with reduced ejection fraction Confirmed Active H/O congenital heart block Confirmed Active Palpitations Confirmed Active Social History Social History Type Response Smoking Status Never (less than 100 in lifetime) entered on: 06/19/19 Sex Female Sex Representation Female (finding) Patient Care team information Care Team Personnel Name: Arlyn Frankel Position: [facility] Outreach Member Role: Lifetime Consulting Physician Name: Linda Valles RN Position: S RN Member Role: Primary Care Nurse Name: Magda Corrigan MD Position: Reference Physician Member Role: PCP Address: [address] [place] [address] Telecom: Name: Masha Gonzalez RN Position: [facility] RN Member Role: Primary Care Nurse Name: Neeru Aldridge Position: [facility] Outreach Member Role: Lifetime Consulting Physician Name: Halina Low RN Position: [facility] SN RN Member Role: Primary Care Nurse Name: April Edmond NP Position: [facility] PCO Associate Professional Member Role: Primary Care Nurse Address: [address] [place] [address] [address] [place], [place] [address] Telecom: Name: Sandy Kwong NP Position: Reference Physician Member Role: Primary Care Nurse Address: [address] [place] [address] [address] [place], [place] [address] Telecom: Name: Steve Nuno RN Position: [facility] RN Member Role: Primary Care Nurse Name: Ana Maria Hoskins Position: [facility] Outreach Member Role: Lifetime Consulting Physician Name: Aspen Bernard Position: [facility] Outreach Member Role: Lifetime Consulting Physician Name: Padmaja Robert [place] Position: [facility] Outreach Member Role: Lifetime Consulting Physician Name: Zayra Camacho Position: [facility] Outreach Member Role: Lifetime Consulting Physician Care Team Related Persons Name: CHERRY AMEZCUA Name: SAY ZULUAGA Name: ANAM JEFFERY Name: ANAM LAMAS Name: HALINA WHEELER Insurance Providers Guarantor name: [facility] Information #: 1 Payer: PA[employer] Payer Identifier: NA Member Number: [id number] Group Number: [id number] Subscriber Identifier: NA Relationship to Subscriber: self Coverage Type: NA Coverage Verification Date: NA Telecom: NA Address: NA
--- OUTSIDE RECORDS SUMMARY | 2025-06-17 23:59 | XMS_ITS | Continuity of Care Document ---
Author Organization [facility] Address [address] [place] [address]- Care Team Providers Care Cutting Machine Operator Name Role Phone Magda Corrigan MD Primary Care Physician [phone] Encounter [facility] Date(s): 05/18/25 - 06/17/25 [facility] [address] [place] [address] Encounter Type: Triage Allergies, Adverse Reactions, Alerts [...] Soft Stop, 05/08/25 2:57:00 PM EDT, Gel, [place], [place] - [phone], Partial fill upon patient request if the [...] Care Team Personnel Name: Arlyn Frankel Position: [facility] Outreach Member Role: Lifetime Consulting Physician Name: Linda Valles RN Position: S RN Member Role: Primary Care Nurse Name: Magda Corrigan MD Position: Reference Physician Member Role: PCP Address: [address] [place] [address]- Telecom: Name: Masha Gonzalez RN Position: [facility] RN Member Role: Primary Care Nurse Name: Neeru Aldridge Position: [facility] Outreach Member Role: Lifetime Consulting Physician Name: Halina Low RN Position: [facility] SN RN Member Role: Primary Care Nurse Name: April Edmond NP Position: [facility] PCO Associate Professional Member Role: Primary Care Nurse Address: [address] [place] [address] [address] [place], [place] [address] Telecom: Name: Sandy Kwong NP Position: Reference Physician Member Role: Primary Care Nurse Address: [address] [place] [address] [place], [place] [address] Telecom: Name: Steve Nuno RN Position: [facility] RN Member Role: Primary Care Nurse Name: Ana Maria Hoskins Position: [facility] Outreach Member Role: Lifetime Consulting Physician Name: Aspen Bernard Position: [facility] Outreach Member Role: Lifetime Consulting Physician Name: Padmaja Robert [place] Position: [facility] Outreach Member Role: Lifetime Consulting Physician Name: Zayra Camacho Position: [facility] Outreach Member Role: Lifetime Consulting Physician Care Team Related Persons Name: CHERRY AMEZCUA Name: SAY ZULUAGA Name: ANAM JEFFERY Name: ANAM LAMAS Name: HALINA WHEELER Insurance Providers Guarantor name: [facility] Information #: 1 Payer: [employer] Payer Identifier: NA Member Number: [id number] Group Number: [id number] Subscriber Identifier: NA Relationship to Subscriber: self Coverage Type: NA Coverage Verification Date: NA Telecom: NA Address: NA
--- OUTSIDE RECORDS SUMMARY | 2025-06-19 15:00 | XMS_ITS | Encounter Summary ---
Author Organization [facility] Address [address] [place] [address] Care Team Providers Care Inner Tube Cutter Name Role Phone Magda Corrigan MD Primary Care Provider [phone] Reason for Referral * Imaging (Routine) - Pending Review Specialty Diagnoses / Procedures Referred By Estelita murguia Referred To Contact Radiology Diagnoses Right upper quadrant abdominal pain Procedures US Abdomen Limited Magda Corrigan MD [address] [place] [address] Phone: tel: fax: [facility] Referral ID Status Reason Start Date Expiration Date V isits Requested Visits Authorized [id number] Pending Review 06/19/2025 06/19/2026 1 1 Reason for Visit * Reason Comments ED Follow-up Encounter Details Date Type Department Care Team ([facility] Contact Info) Description 06/19/2025 3:00 PM EST Office Visit Internal Medicine - [address] [phone] Magda Corrigan MD [address] [place] [address] Right upper quadrant abdominal pain (Primary Dx); Elevated blood sugar; Other constipation; PTSD (post-traumatic stress disorder); Severe episode of recurrent major depressive disorder, without psychotic features (CMS/HCC V24, CMS/HCC V28); Complete heart block (CMS/HCC V24, CMS/HCC V28); Mild intellectual disability Social History Tobacco Use Types Packs/Day Years [...] PM EDT documented as of this encounter Last Filed Vital Signs Vital Sign Reading Time Taken Comments Blood Pressure 94/55 06/19/2025 3:15 PM EST Pulse 66 06/19/2025 3:15 PM EST Temperature - - Respiratory Rate - - Oxygen Saturation - - Inhaled Oxygen Concentration - - Weight 60.7 kg (133 lb 14.4 oz) 06/19/2025 3:15 PM EST Height 167.6 cm (5' 6 ) 06/19/2025 3:15 PM EST Body Mass Index 21.61 06/19/2025 3:15 PM EST documented in this encounter Ordered Prescriptions Prescription Sig Dispense Quantity Refills Last Filled Start Date End Date polyethylene glycol (MIRALAX) 17 gram packet Take 17 g by mouth 1 (one) time each day. 510 g 06/19/2025 blood sugar diagnostic (FreeStyle Lite Strips) test stripIndications:E levated blood sugar USE TO TEST FINGER STICK BLOOD SUGAR as instructed 100 strip 1 06/19/2025 freestyle (FreeStyle Lancets) 28 gauge lancets Check sugars as directed upto 2 times a day 200 each 1 06/19/2025 documented in this encounter Plan of Treatment Upcoming Encounters Date Type Department Care Team (Late st Contact Info) Description 06/25/2025 9:15 AM EST Appointment Ultrasound - [facility] [address] [place], [place] [phone] 07/18/2025 5:00 PM EST Evaluation [facility] 175 [facility] [address] [place] [address] Nicolas Bey, PT 08/14/2025 1:30 PM EST Office Visit Orthopedic Surgery - [place] [address] [facility] [address] [place] [address] Thomas Solano, DPM [address] [facility] [address] [place], [place] 10/17/2025 2:00 PM EDT Office Visit Internal Medicine - [address] [phone] Magda Corrigan MD [address] [place] [address] Scheduled Orders Name Type Priority Associated Diagnoses Orde r Schedule US Abdomen Limited Imaging Routine Right upper quadrant abdominal pain Expected: 06/19/2025, Expires: 06/19/2026 documented as of this encounter Visit Diagnoses Diagnosis Right upper quadrant abdominal pain- Primary Elevated blood sugar Other abnormal glucose Other constipation PTSD (post-traumatic stress disorder) Posttraumatic stress disorder Severe episode of recurrent major depressive disorder, without psychotic features (CMS/HCC V24, CMS/HCC V28) Complete heart block (CMS/HCC V24, CMS/HCC V28) Atrioventricular block, complete Mild intellectual disability Mild mental retardation documented in this encounter Discontinued Medications Medication Sig Discontinue Reason Start Date End Da te freestyle (FreeStyle Lancets) 28 gauge lancets Check sugars as directed upto 2 times a day Reorder 08/04/2024 06/19/2025 blood sugar diagnostic (FreeStyle Lite Strips) test stripIndications:[place] blood sugar USE TO TEST FINGER STICK BLOOD SUGAR as instructed Reorder 01/26/2025 06/19/2025 documented as of this encounter Historical Medications * This list may reflect changes made after this encounter. vibegron (Gemtesa) 75 mg tablet tablet Take 1 tablet (75 mg total) by mouth 1 (one) time each day. Per Urology. added in this encounter Additional Health Concerns Assessment Noted Time PHQ-9 Depression Total Score: 2 06/19/20 25 3:13 PM EST documented as of this encounter Care Teams Inner Tube Cutter Relationship Specialty Start Date End Date Magda Corrigan MD [address] [place] [phone] PCP - General Internal Medicine 03/01/25 documented as of this encounter
--- NOTE | 2025-06-22 11:06 | A.OFFVIS_ITS ---
Intake Visit Reasons: OV- Cortisone Injection Right Knee Intake Note: Jacqueline is a 39 year old female who presents today for a cortisone injection in her right knee. At today's visit she states that her bilateral knee to xiong is sore but falls or injury's to report. Allergies Seasonal Allergies Allergy (Intermediate, Verified 06/07/25 12:05) Itchy Eyes propofol Adverse Reaction (Unknown, Verified 03/29/25 12:13) Unknown Medication List - Last Reconciled 06/22/25 by Anny Menjivar MD acetaminophen 325 mg PO QID PRN blood sugar diagnostic (FreeStyle Lite Strips) As directed blood-glucose meter (FreeStyle Lite Meter kit) As directed diclofenac sodium 1% topical escitalopram oxalate (Lexapro) 10 mg PO DAILY gabapentin 100 mg PO BEDTIME hydroxyzine HCl 25 mg PO BEDTIME lancets (FreeStyle Lancets) As directed leg brace (Ankle Brace) Bilateral AFO custom molded either adjustment of current AFOs or consideration of new AFOs. melatonin mg PO trazodone 50 mg PO DAILY PFSH Medical History Spastic diplegic cerebral palsy Coarse tremors Paraparesis Intellectual disability Glucose intolerance Anxiety Developmental delay, borderline Complete heart block Pacemaker Social History Alcohol intake: never Patient Tobacco Use Status: Never used Tobacco Office Procedures AMB Joint Injection/Aspiration Joint Injection/Aspiration Details: Consent obtained. Patient sits with right knee flexed. Medial edge of patella is identified and marked. Area is cleansed with betadine solution. A 27 gauge needle is injected at an angle laterally and slightly upwards under the patella. Solution containing 40 mg Kenalog and 3m of 2% Lidocaine is instilled. Patient tolerated procedure well without complications. Post-injection instructions given. Primary Site: Right Knee Prep: site was prepped using aseptic technique Injected: 40 mg of, Kenalog and with 3 mL of (2% lidocaine) Procedure: The patient tolerated the procedure well Coding 69872 - Large joint Procedure code (CPT) selection complete Office Meds Kenalog 40 mg/mL suspension for injection Performing Provider: Anny Menjivar MD Performing Location: [facility] Surgeons Documented (not given) by: Anny Menjivar MD on 06/22/25 11:36 Dose Route Admin Location Dispensed Lot Number Expiration Date NDC Level Vial Inspector 40 mg intra-articular mL Total Dispensed Waste n/a n/a Assessment & Plan Assessment & Plan (1) Right knee DJD: Code(s): M17.11 - Unilateral primary osteoarthritis, right knee Category: Medical (2) Paraparesis: Comment: mild Right foot weakness and hyperreflexia , likley cerebral palsy related to hypoxic injury during Code(s): G82.20 - Paraplegia, unspecified Category: Medical Plan Tolerated procedure well. Assessment and plan discussed with patient, and patient was agreeable. All questions were answered thoroughly. Anny Menjivar MD, ELADIO Board Certified, [place] [employer] and Rehabilitation (ABPMR) Board Certified, [place] Board of Electrodiagnostic Medicine (ABEM) Orders: Orders AMB Joint Injection/Aspiration Today M17.11 - Unilateral primary osteoarthritis, right knee Medications: New Kenalog (triamcinolone acetonide) 40 mg intra-articular ONCE 1 mL 0RF NS M17.11 - Unilateral primary osteoarthritis, right knee Coding Level of Care Code Procedure Only Diagnoses Right knee DJD M17.11 Paraparesis G82.20 CPT Codes Coding - 11435 Large joint: 75213 - Large joint ([id number])
--- OUTSIDE RECORDS SUMMARY | 2025-06-22 11:55 | XMS_ITS | Data Portability ---
Author Organization [place] - [facility] Address [address] [place] [address] Care Team Providers Care Office Specialist Name Role Phone DAVION LUDIVINA Primary Care Provider Assessment Encounter Date Assessment Date Assessment LastModified by Organization Details LastModified Time 10/07/2020 10/07/2020 Overview/History :This is a 34-year-old female that contrary [facility] her evaluation, she has been having symptoms concerning for possible COVID since 2:30 a.m. last night. She is reported cough, sore throat and runny nose. She has been taking vryr-sal-zcfqrpb Cough medication and staying well hydrated with [...] hydrated. I have advised her to take rkjb-hmr-fadtxzh medication for her cough as she has been doing and also to treat her low grade fevers with hyuw-txu-pqhlhwk Tylenol. I did explain that her COVID tests would be back in the next 3-5 days and that she will get a phone call with those results. She verbalized understanding of discharge instructions. In order to obtain further information and compare any laboratory results/values, I have accessed patient records on the [place] [employer]. This information was pertinent in my medical decision making today. Time On Scene with Patient: 00:22:05 Proper Personal Protective Equipment (PPE), including gloves, eye protection, N95 mask, gown, and shoe covers were donned and doffed appropriately and all equipment cleaned using approved technique with germicidal disposable wipes prior to and after care of this patient according to [facility]'s infection prevention protocols. [email or web address] Not available 10/07/2020 18:02:17 Plan of Treatment Reminders Order Date Submit Date Provider Last Modified By Organization Details Last Modified Time Details Appointments None recorded. Lab SARS CoV 2 RNA (COVID-19), QL, target setter-PCR, respiratory specimen 2020 [email or web address] [facility] (Centralized Electronic Ordering - All Locations), Patient Can Go To The Location Of Their Choice, [address] 09:20:29 Referral None recorded. Procedures None recorded. Surgeries None recorded. Imaging None recorded. Medication Orders acetaminoph en 325 mg tablet 2020 021 [email or web address] [id number], [address] [place], [address], 17:43:02 Patient TargetsNo targets recorded. Patient InstructionsNo [...] Go To The Location Of Their Choice, [address] 10/09/2020 07:40:48 10/08/1910/09/2020 covid -19 (nove l coron aviru s) PCR covid-19 PCR result (neg) abnormal POSIT [place] Posit [place] for detec tion of 2019- novel Coron aviru s (2018 -nCoV ) by RT-PC Esthela lincoln to the [facility]. All test resul ts must be corre lated with clini adria findi ngs. This test has been autho rized by the FDA under an Emerg ency Use Autho rizat ion (EUA) for use by autho rized labor atori es. Testi ng perfo rmed on the [employer] Panth er Aptim a assay utili zing trans cript ion-m ediat ed ampli ficat ion (TMA) . Not Available [facility] (Centralized Electronic Ordering - All Locations) Patient Can Go To The Location Of Their Choice, [address] 10/09/2020 07:40:48 Result Notes None recorded. Medical [...] Not Available Not Available Not Available FreeStyle [place] Lite kit USE TO TEST BLOOD SUGARS TWICE A DAY FREESTYLE FREEDOM active Not Available Not Available No t Available Baqsimi 3 mg/actuation nasal spray PLEASE SEE ATTACHED FOR DETAILED DIRECTIONS active Not Available Not Available N ot Available Vitals Date Recorded Respiratory rate Heart rate Oxygen saturation Body temperature Systolic And Diastolic Provider Name and Address Organization Details Last Updated DateTime 1 18 /min 78 /min 98 % 99.6 [degF] 124/78 mm[Hg] Not [...] ICD10 Code Diagnosis IMO Codes Diagnosis Note [id number] MARYLIN MCGRAW NP SPR - HOME [address] [place] [address] 10/07/2020 17:13:05 10/10/2020 12:49:44 Viral upper respiratory tract infection 876888603 J06.9 Exposure t o communicable disease 160710425 Z20.822 Health Concerns Section Related Observation LastModified by Organization Detai ls LastModified Time None Recorded Concern Status LastModified by Organization Details LastModified Time None Recorded Advance Directives Directive None Recorded Payers Insurance Date Sequence Insurance Name Policy Number Policy Negro Covered Member ID Negro Member ID Guarantor Name 10/07/2020 1 *SELF PAY* Jacquelinekarthikeyan Hawkins [id number] Jacqueline Brennane Ross 10/10/2020 1 [place] Jacqueline A Ross [id number] Jacquelinekarthikeyan Hawkins 10/16/2020 1 [facility] [employer] PLAN (MEDICAID HMO) [place] Jacqueline A Ross [id number] Jacqueline Brennane Ross 10/10/2020 1 [facility] [employer] PLAN (MEDICAID HMO) [place] Jacqueline A Ross [id number] Jacqueline Brennane Ross 10/16/2020 2 [place] Jacqueline A Ross [id number] Jacqueline Malika Ross 10/16/2020 2 [place] Jacqueline A Ross [id number] Jacquelinekarthikeyan Brennane Ross 10/16/2020 1 [facility] [employer] PLAN (MEDICAID HMO) [place] Jacqueline A Ross [id number] Jacqueline Brennane Ross 10/16/2020 1 [place] Jacqueline A Ross [id number] Jacqueline Malika Ross 10/16/2020 2 [place] Jacqueline A Ross [id number] Jacqueline Malika Ross 10/16/2020 1 [facility] [employer] NET PLAN (MEDICAID HMO) [place] Jacqueline A Ross [id number] Jacqueline Hawkins Notes Date Note Type Note Provider Name and Address Organization Details Recorded Time 10/07/2020 text/html COVID-19 Symptom s December 2019Reported by Patient This is [facility] 34[facility] 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 She also has some mild developmental delay. She contacted [facility] as she began to have symptoms of [...] cough. MARYLIN MCGRAW, GRAY [address], [place], [address], [place] [facility] 10/07/2020 18:11:08 OBGyn Episode No OBEpisode recorded.
--- OUTSIDE RECORDS SUMMARY | 2025-06-22 11:55 | XMS_ITS | Encounter Summary ---
Author Organization [facility] Address [address] [place] [address] Care Team Providers Care Vp Emerging Media Name Role Phone Magda Corrigan MD Primary Care Provider [phone] Reason for Visit * Reason Onset Date Comments Fitting for DME 06/21/2025 Encounter Details Date Type Department Care Team (Late st Contact Info) Description 06/21/2025 Telephone Internal [facility] [place] [place] [phone] Magda Corrigan MD [address] [place], [place] Social History Tobacco Use Types Packs/Day [...] as of this encounter Progress Notes * Tamiko Alexander - 06/21/2025 1:21 PM EST DME REQUEST Name of Product: shower chair and suction cup shower bars Specific information about product suction cup shower bars # Needed 1 chair and suction cup shower bars Reason patient is asking for this supply? Pts balance is off, prone to falls, cerebral palsy, spinal chord injury Have you received this supply before? If yes , when?: No Have you discussed the need for this supply with a provider at a recent visit? If yes, with who andwhen? Yes. 04/03/25 blanquita grant When completed: Fax to other office/MD/pharmacy at fax # [phone] Who is requested? pt Is this a fax request?no Have you told the patient it will take 7-10 days for completion of this request? Yes documented in this encounter Plan of Treatment Upcoming Encounters Date Type Department Care Team (Late st Contact Info) Description 06/25/2025 9:15 AM EST [facility] [address] [place], [place] [phone] 07/18/2025 5:00 PM EST Evaluation [facility] [address] [phone] Nicolas Bey, PT 08/14/2025 1:30 PM EST Office Visit Orthopedic Surgery - [place] [address] 175 [facility] [address] [place], [place] [phone] Thomas Solano, DPM 175 [facility] [address] [place], [place] 10/17/2025 2:00 PM EDT [facility] [address] [facility] [place] [phone] Magda Corrigan MD [address] [place], [place] documented as of this encounter Visit Diagnoses Not on filedocumented in this encounter Additional Health Concerns Assessment Noted Time PHQ-9 Depression Total Score: 2 06/19/20 25 3:13 PM EST documented as of this encounter Care Teams Vp Emerging Media Relationship Specialty Start Date End Date Magda Corrigan MD [address] [facility] [place] [place] [address] PCP - General Internal Medicine 03/01/25 documented as of this encounter
--- OUTSIDE RECORDS SUMMARY | 2025-06-22 11:55 | XMS_ITS | Clinical Summary ---
Author Organization [place] [address] [address] [facility] Address [address] [facility] [place] [address] Phone Care Team Providers Care Lime Puller Name Role Phone Magda Corrigan MD Primary Care Provider [phone] Allergies Active Allergy Reactions Criticality Noted Date Comments Propofol 05/28/2021 Medications hydrOXYzine HCL (ATARAX) 25 mg tablet Take 1 tablet (25 mg total) by mouth 1 (one) time each day. In PM 4 Active UNABLE TO FIND Blood Glucose Calibration (FreeStyle Control Solution) Liquid, USE TO CALIBRATE METER 3 Active traZODone (DESYREL) 50 mg tablet Take [...] mouth 1 (one) time each day. Active gabapentin (NEURONTIN) 100 mg capsule Take 1 capsule (100 mg total) by mouth at bedtime. at bedtime 5 Active freestyle (FreeStyle Lancets) 28 gauge lancets Check sugars as directed upto 2 times a day 200 each 1 5 Active blood sugar diagnostic (FreeStyle Lite Strips) test stripIndicatio ns:Elevated blood sugar USE TO TEST FINGER STICK BLOOD SUGAR as instructed 100 strip 1 5 Active vibegron (Gemtesa) 75 mg tablet tablet Take 1 tablet (75 mg total) by mouth 1 (one) time each day. Per Urology. Active polyethylene glycol (MIRALAX) 17 gram packet Take 17 g by mouth 1 (one) time each day. 510 g 5 07/19/20 25 Active freestyle (FreeStyle Lancets) 28 gauge lancets Check sugars as directed upto 2 times a day 200 each 1 5 06/19/20 25 Discontin ued(Reord er) blood sugar diagnostic (FreeStyle Lite Strips) test stripIndicatio ns:Elevated blood sugar USE TO TEST FINGER STICK BLOOD SUGAR as instructed 100 strip 1 5 06/19/20 25 Discontin ued(Reord er) Active Problems Problem Noted Date Diagnosed Date [...] 08/01/2014 Overview (05/25/2024): Ching Reza at the [facility] Mild intellectual disability 05/31/2008 Resolved Problems Problem Noted Date Diagnosed Date Resolved Date Cardiac pacemaker in situ 12/16/2005 Overview (05/25/2024): Cardiology at [facility] Encounters Date Type Department Care Team Description 06/21/2025 [facility] [address] [place], [place] [address] [place] [phone] Magda Corrigan MD 06/19/2025 3:00 PM EST [facility] [address] [place], [place] [address], [place] [phone] Magda Corrigan MD Right upper quadrant abdominal pain (Primary Dx); Elevated blood sugar; Other constipation; PTSD (post-traumatic stress disorder); Severe episode of recurrent major depressive disorder, without psychotic features (CMS/HCC V24, CMS/HCC V28); Complete heart block (CMS/HCC V24, CMS/HCC V28); Mild intellectual disability 06/15/2025 [facility] [address] [place] [address] [facility] [place] [phone] Rosanna Lu NP 05/21/2025 [facility] [address] [place] [place] [address] [place] [phone] Magda Corrigan MD 05/10/2025 [facility] [facility] [place] [phone] Magda Corrigan MD 04/30/2025 3:00 PM EDT Office [facility] [address] [place] [address] [place] [phone] Rosanna Lu NP Hypotension, unspecified hypotension type (Primary Dx); Cerebral palsy, unspecified type (CMS/HCC V24, CMS/HCC V28); Anxiety; Insomnia, unspecified type; Complete heart block (CMS/HCC V24, CMS/HCC V28); Urinary incontinence, unspecified type 04/23/2025 Telephone Internal Medicine - [facility] [address] [place], [place] [address], [place] [phone] Magda Corrigan MD 04/20/2025 [facility] [address] [place], [place] [address], [place] [phone] Magda Corrigan MD 04/19/2025 [facility] [address] [place], [place] [address], [place] [phone] Magda Corrigan MD 04/17/2025 [facility] - [facility] [address] [place] [phone] Magda Corrigan MD 04/17/2025 [facility] [address] [facility] [place] [phone] Magda Corrigan MD 04/12/2025 [facility] [address] [facility] [place] [phone] Magda Corrigan MD 04/12/2025 Telephone Internal Medicine - [facility] [address] [facility], [place] [phone] Magda Corrigan MD 04/10/2025 Telephone Internal Medicine - [facility] [address] [facility], [place] [phone] Magda Corrigan MD 04/03/2025 10:30 AM EDT Office Visit Internal Medicine - [facility] [address] [facility] [place], [place] [phone] Danielle Dudley NP Hospital discharge follow-up (Primary Dx); Hypotensive episode; Complete heart block (CMS/HCC V24, [facility] V28); Developmental delay; Cerebral palsy, unspecified type ([facility] V24, [facility] V28) 04/03/2025 [facility] [address], [place] [phone] Magda Corrigan MD 03/29/2025 [facility] [phone] Magda Corrigan MD 03/28/2025 [facility] [place] [address] Magda Corrigan MD 03/28/2025 [facility] [place] [address] Magda Corrigan MD 03/28/2025 [facility] [address] [phone] Magda Corrigan MD 03/28/[address] [phone] Magda Corrigan MD 03/27/2025 [facility] [place] [address] Magda Corrigan MD 03/22/2025 [facility] [address] [phone] Magda Corrigan MD from Last 3 Months [...] COMM ENT: Ching Reza at the [facility] Complete heart block (CMS/HC C V24, [...] Pulse 66 06/19/2025 3:15 PM EST Temperature 36.9 C (98.4 F) 04/30/2025 3:20 PM EDT Respiratory Rate 19 12/21/2024 3:20 PM EDT Oxygen Saturation 98% 12/05/2024 2:52 PM EDT Inhaled Oxygen Concentration - - Weight 60.7 kg (133 lb 14.4 oz) 06/19/2025 3:15 PM EST Height 167.6 cm (5' 6 ) 06/19/2025 3:15 PM EST Body Mass Index 21.61 06/19/2025 3:15 PM EST Plan of Treatment Upcoming Encounters Date Type Department Care Team (Late st Contact Info) Description 06/25/2025 9:15 AM EST Appointment Ultrasound - [address] [address] 07/18/2025 5:00 PM EST Evaluation [facility] [address] [phone] Nicolas Bey, PT 08/14/2025 1:30 PM EST Office Visit Orthopedic Surgery - [place] [address] 175 [facility] 250 [place] [address] Thomas Solano, DPM [address] [address] 10/17/2025 2:00 PM EDT Office Visit Internal Medicine - [address] [phone] Magda Corrigan MD [address] [place] [address] Health Maintenance Due Date Last Done Comments Hepatitis B Vaccines (1 of 3 - 19+ 3-dose series) 2005 HPV Vaccines (1 - 3-dose SCDM series) 2013 Social Influencers of Health Screening 07/11/2022 DTaP,Tdap,and Td Vaccines (3 - Td or Tdap) 10/08/2027 10/07/2017, 01/06/2007 Cholesterol Screening (Lipid Panel) 03/10/2028 03/10/2023 Cervical Cancer Screening: HPV 05/13/2028 05/13/2023 RSV Immunization Adult Patients (1 - 1-dose 75+ series) 2061 HIV Screening Completed 2023, 2023 Hepatitis C Screening Completed 2023 COVID-19 Vaccine Completed 05/22/2025, 11/06/2020 Influenza Vaccine Completed 05/22/2025, , 08/25/2023, Additional history exists Depression Screening Completed 06/19/2025 HIB Vaccines Aged Out No longer eligi [...] Anatomical Region Laterality Modality Radiographic Yesenia ging us Provider [facility] XR PROCEDURES Final Result * HIV Screening (2023) HIV Screening abstracted Historical Provider HEALTH MAINTENANCE Final Result * Hepatitis C Screening (2023) Hepatitis C Screening abstracted [facility] Provider HEALTH MAINTENANCE Final Result * Cervical Cancer Screening: HPV (05/13/2023) Pathologist [facility] Cervical Cancer Screening: HPV abstracted, negative [facility] Provider HEALTH MAINTENANCE Final Result * Lipid panel (03/10/2023) Pathologist [facility] LDL/HDL Ratio 2 0 - 4 Triglycerides 66 0 - 150 mg/dL Cholesterol 151 0 - 200 mg/dL HDL 69 >=40 mg/dL LDL Cholesterol 69 0 - 100 mg/dL Blood Venous blood specimen / Unknown Result [facility] Provider LAB BLOOD ORDERABLES Tami l Result from Last 3 Months or Most Recently Relevant to Health Maintenance Insurance [facility] Care Teams Lime Puller Relationship Specialty Start Date End Date Magda Corrigan MD [address] [place] [address] PCP - General Internal Medicine 03/01/25
== END 2025-06-22 11:38 | disposition home or self-care (01) ==
PROVIDERS: PCP Internal Medicine; Visit Provider Physical Medicine & Rehabilitation
DX: M17.11 Unilateral primary osteoarthritis, right knee (principal); G82.20 Paraplegia, unspecified
CPT/HCPCS: 20610

== ENCOUNTER → 2025-06-22 11:04 | Outpatient (BNVA) | payer OTHER, SELFPAY | PROVIDERS: PCP Internal Medicine; Visit Provider Physical Medicine & Rehabilitation | DX: M17.11 Unilateral primary osteoarthritis, right knee (principal); G82.20 Paraplegia, unspecified | CPT/HCPCS: 20610; J2003; J3301 ==

== ENCOUNTER 2025-06-27 15:22 | Outpatient (AMB) | payer OTHER, SELFPAY ==
--- OUTSIDE RECORDS SUMMARY | 2025-06-25 09:07 | XMS_ITS | Encounter Summary ---
Author Organization [facility] Address [address] [place] [address] Care Team Providers Care Cruise Director Name Role Phone Magda Corrigan MD Primary Care Provider [phone] Reason for Referral * Imaging (Routine) - Pending Review Specialty Diagnoses / Procedures Referred By Estelita murguia Referred To Contact Radiology Diagnoses Right upper quadrant abdominal pain Procedures US Abdomen Limited Magda Corrigan MD [address] [place] [phone] Phone: tel: fax: [facility] Referral ID Status Reason Start Date Expiration Date V isits Requested Visits Authorized [id number] Pending Review 06/19/2025 06/19/2026 1 1 Reason for Visit * Imaging (Routine) - Pending Review Specialty Diagnoses / Procedures Referred By Estelita murguia Referred To Contact Radiology Diagnoses Right upper quadrant abdominal pain Procedures US Abdomen Limited Magda Corrigan MD [address] [place] [phone] Phone: tel: fax: [facility] Referral ID Status Reason Start Date Expiration Date V isits Requested Visits Authorized [id number] Pending Review 06/19/2025 06/19/2026 1 1 Encounter Details Date Type Department Care Team (Latest Contact Info) Description 06/25/2025 9:07 AM EST - 06/25/2025 11:59 PM EST Hospital Encounter [facility]trasound - [facility] [address] [place] [phone] Right upper quadrant abdominal pain Discharge Disposition: Home or Self Care Social History Tobacco Use Types Packs/Day Years [...] PM EDT documented as of this encounter Medications at Time of Discharge blood sugar diagnostic (FreeStyle Lite Strips) test stripIndications :Elevated blood sugar USE TO TEST FINGER STICK BLOOD SUGAR as instructed 100 strip 1 06/19/2025 blood-glucose meter kitIndications:E levated blood sugar Use daily or as directed for monitoring of diabetes. Freestyle lite meter. 1 each 11/22/2024 escitalopram (LEXAPRO) 10 mg tablet Take 1 tablet (10 mg total) by mouth 1 (one) time each day. freestyle (FreeStyle Lancets) 28 gauge lancets Check sugars as directed upto 2 times a day 200 each 1 06/19/2025 gabapentin (NEURONTIN) 100 mg capsule Take 1 capsule (100 mg total) by mouth at bedtime. at bedtime 03/28/2025 hydrOXYzine HCL (ATARAX) 25 mg tablet Take 1 tablet (25 mg total) by mouth 1 (one) time each day. In PM 09/29/2023 melatonin 3 mg tablet Take 2 tablets (6 mg total) by mouth at bedtime. polyethylene glycol (MIRALAX) 17 gram packet Take 17 g by mouth 1 (one) time each day. 510 g 06/19/2025 traZODone (DESYREL) 50 mg tablet Take 1 tablet (50 mg total) by mouth at bedtime. UNABLE TO FIND Blood Glucose Calibration (FreeStyle Control Solution) Liquid, USE TO CALIBRATE METER 10/20/2022 vibegron (Gemtesa) 75 mg tablet tablet Take 1 tablet (75 mg total) by mouth 1 (one) time each day. Per Urology. documented as of this encounter Discharge Disposition Disposition Code Departure Means Destination Home or Self Care documented in this encounter Plan of Treatment Upcoming Encounters Date Type Department Care Team (Late st Contact Info) Description 07/18/2025 5:00 PM EST Evaluation [facility] [place] 175 [facility] [address] [place] [phone] Nicolas Bey, PT 08/14/2025 1:30 PM EST Office Visit Orthopedic Surgery - [place] 250 175 [facility] [address] [place] [phone] Thomas Solano, DPM 175 [facility] [address] [place] [phone] 10/17/2025 2:00 PM EDT Office Visit Internal Medicine - [facility] [address] [place], [place] [phone] Magda Corrigan MD [address] [place], [place] documented as of this encounter Procedures Procedure Name Priority Date/Time Associated Diagnosis Comments US ABDOMEN LIMITED Routine 06/25/2025 9: 52 AM EST Right upper quadrant abdominal pain documented in this encounter Results * US Abdomen Limited (06/25/2025 9:52 AM EST) Anatomical Region Laterality Modality Body Ultrasound 06/25/2025 11:3 5 AM EST Impressions 06/25/2025 11:55 AM EST Decreasing size of the right hepatic lobe lesion which corresponds with biopsy- proven focal nodular hyperplasia. Otherwise, no abnormality detected. -------- FINAL REPORT -------- Dictated By: Veronica Flores Dictated Date: 06/25/2025 11:35 ET Assigned Physician: Veronica Flores Reviewed and Electronically Signed By: Veronica Flores Signed Date: 06/25/2025 11:55 ET Workstation ID: [id number] Transcribed By: Self Edit Transcribed Date: 06/25/2025 11:35 ET Narrative 06/25/2025 11:55 AM EST EXAM: Abdomen ultrasound, limited HISTORY: Right upper quadrant pain. COMPARISON: Ultrasound 07/28/2021, 11/13/2020, and 07/16/2020, CT abdomen 01/20/2021 and 07/10/2020 FINDINGS: Liver: Normal in size measuring 12.5 cm in craniocaudad extent. Parenchymal echotexture appears within normal limits. The hyperechoic lesion with somewhat ill-defined margins in the right hepatic lobe measures 3.8 x 2.6 x 2.2 cm compared with 6.6 x 6.3 x 4.3 cm on the 07/28/2021 exam. This lesion corresponds with biopsy-proven focal nodular hyperplasia. Gallbladder/Biliary Tree: Gallbladder lumen appears clear without wall thickening or pericholecystic fluid. No intra or extrahepatic biliary ductal dilatation. The common bile duct measures 0.3 cm. Pancreas: No abnormality detected. Right kidney: Normal in size measuring 10.5 cm in craniocaudad extent. No hydronephrosis, focal lesions, or shadowing stones. Vasculature: Hepatopedal flow in the main portal vein. Procedure Note Veronica Flores MD - 06/25/2025 EXAM: Abdomen ultrasound, limited HISTORY: Right upper quadrant pain. COMPARISON: Ultrasound 07/28/2021, 11/13/2020, and 07/16/2020, CT abdomen01/20/2021 and 07/10/2020 FINDINGS: Liver: Normal in size measuring 12.5 cm in craniocaudad extent.Parenchymal echotexture appears within normal limits. The hyperechoiclesion with somewhat ill-defined margins in the right hepatic lobemeasures 3.8 x 2.6 x 2.2 cm compared with 6.6 x 6.3 x 4.3 cm on the07/28/2021 exam. This lesion corresponds with biopsy-proven focal nodularhyperplasia. Gallbladder/Biliary Tree: Gallbladder lumen appears clear without wallthickening or pericholecystic fluid. No intra or extrahepatic biliaryductal dilatation. The common bile duct measures 0.3 cm. Pancreas: No abnormality detected. Right kidney: Normal in size measuring 10.5 cm in craniocaudad extent. Nohydronephrosis, focal lesions, or shadowing stones. Vasculature: Hepatopedal flow in the main portal vein. IMPRESSION: Decreasing size of the right hepatic lobe lesion which corresponds withbiopsy- proven focal nodular hyperplasia. Otherwise, no abnormalitydetected. -------- FINAL REPORT -------- Dictated By: Veronica Flores Dictated Date: 06/25/2025 11:35 ET Assigned Physician: Veronica Flores Reviewed and Electronically Signed By: Veronica Flores Signed Date: 06/25/2025 11:55 ET Workstation ID: [id number] Transcribed By: Self Edit Transcribed Date: 06/25/2025 11:35 ET us Magda Corrigan MD IMG US PROCEDURES Final Result documented in this encounter Visit Diagnoses Diagnosis Right upper quadrant abdominal pain documented in this encounter Additional Health Concerns Assessment Noted Time PHQ-9 Depression Total Score: 2 06/19/20 25 3:13 PM EST documented as of this encounter Care Teams Cruise Director Relationship Specialty Start Date End Date Magda Corrigan MD [address] [place] [address] PCP - General Internal Medicine 03/01/25 documented as of this encounter
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
[2025-06-27 15:25] VITALS: BP 98/62; PULSE 70; O2SAT 98; BMI 22.0
--- OUTSIDE RECORDS SUMMARY | 2025-06-27 17:45 | XMS_ITS | Clinical Summary ---
Author Organization [place] [address] [address] [facility] Building Address [address] [facility] [address] Phone Care Team Providers Care Optics Engineer Name Role Phone Magda Corrigan MD Primary Care Provider [phone] Allergies Active Allergy Reactions Criticality Noted Date [...] 08/01/2014 Overview (05/25/2024): [facility]ing Reza at [facility] Mild intellectual disability 05/31/2008 Resolved Problems Problem Noted Date Diagnosed Date Resolved Date Cardiac pacemaker in situ 12/16/2005 Overview (05/25/2024): Cardiology at [facility] Encounters Date Type Department Care Team Description 06/27/2025 Telephone Internal Medicine - [facility] [address] [place] [phone] Magda Corrigan MD 06/27/2025 Telephone Internal [facility] - [facility] [address] [facility] [place] [phone] Magda Corrigan MD 06/25/2025 9:07 AM EST - 06/25/2025 11:59 PM EST Hospital Encounter Ultrasound - [facility] [address] [place] [address] Right upper quadrant abdominal pain Discharge Disposition: Home or Self Care 06/25/2025 Results Follow-Up [facility] [place] [phone] Magda Corrigan MD 06/21/2025 Telephone Internal Medicine - [facility] [address] [place] [phone] Magda Corrigan MD 06/19/2025 3:00 PM EST Office Visit Internal [facility] [place] [phone] Magda Corrigan MD Hospital discharge follow-up (Primary Dx); Right upper quadrant abdominal pain; Constipation, unspecified constipation type; Elevated blood sugar 06/15/2025 Telephone Internal Medicine - [facility] [address] [facility] [place] [phone] Rosanna Lu, GRAY 05/21/2025 Telephone Internal Medicine - [facility] [address] [facility] [place] [phone] Magda Corrigan MD 05/10/2025 [place] [facility] - [facility] [address] [facility] [place] [phone] Magda Corrigan MD 04/30/2025 3:00 PM EDT Office Visit Internal Medicine - [facility] [address] [facility] [place] [phone] Rosanna Lu, GRAY Hypotension, unspecified hypotension type (Primary Dx); Cerebral palsy, unspecified type (CMS/HCC V24, CMS/HCC V28); Anxiety; Insomnia, unspecified type; Complete heart block (CMS/HCC V24, CMS/HCC V28); Urinary incontinence, unspecified type 04/23/2025 Telephone Internal Medicine - [facility] [address] [place], [place] [phone] Magda Corrigan MD 04/20/2025 Telephone Internal Medicine - [facility] [address] [facility] [place] [phone] Magda Corrigan MD 04/19/2025 Telephone Internal Medicine - [facility] [address] [place], [place] [phone] Magda Corrigan MD 04/17/2025 Telephone Internal Medicine - [facility] [address] [place], [place] [phone] Magda Corrigan MD 04/17/2025 Telephone Internal Medicine - [facility] [address] [facility] [place] [phone] Magda Corrigan MD 04/12/2025 Telephone Internal Medicine - [facility] [address] [place], [place] [phone] Magda Corrigan MD 04/12/2025 Telephone Internal Medicine - [facility] [address] [place], [place] [phone] Magda Corrigan MD 04/10/2025 [place] [facility] [address] [place], [place] [address] [place], [place] [phone] Magda Corrigan MD 04/03/2025 10:30 AM EDT Office Visit Internal Medicine - [facility] [address] [facility] [place] [phone] Danielle Dudley NP Hospital discharge follow-up (Primary Dx); Hypotensive episode; Complete heart block (CMS/HCC V24, CMS/HCC V28); Developmental delay; Cerebral palsy, unspecified type (CMS/HCC V24, CMS/HCC V28) 04/03/2025 Telephone Internal Medicine - [facility] [address] [place], [place] [phone] Magda Corrigan MD 03/29/2025 Telephone Internal Medicine - [facility] [address] [place], [place] [phone] Magda Corrigan MD 03/28/2025 Telephone Internal Medicine - [facility] [address] [place], [place] [phone] Magda Corrigan MD 03/28/2025 [place] [facility] - [facility] [address] [place] [phone] Magda Corrigan MD 03/28/2025 Telephone Internal Medicine - [facility] [address] [place], [place] [phone] Magda Corrigan MD 03/28/2025 Telephone Internal Medicine - [facility] [address] [place], [place] [phone] Magda Corrigan MD 03/27/2025 Telephone Internal Medicine - [facility] [address] [place] [phone] Magda Corrigan MD from Last 3 Months [...] DX:Anxiety; COMM ENT: [facility] at [facility] Complete heart block (CMS/HC C V24, [...] Info) Description 07/18/2025 5:00 PM EST Evaluation [facility] 175 [facility] 350 [place] [phone] Nicolas Bey, PT 08/14/2025 1:30 PM EST Office Visit Orthopedic Surgery [facility] 250 175 [facility] 250 [place] [phone] Thomas Solano, DPM [address] [phone] 10/17/2025 2:00 PM EDT Office Visit Internal Medicine - [facility] 305 [place], [place] [phone] Magda Corrigan MD [address] [place], [place] Health Maintenance Due Date Last Done [...] AM EST Right upper quadrant abdominal pain EXTERNAL XRAY REPORT 03/29/2025 EXTERNAL XRAY REPORT 03/29/2025 EXTERNAL XRAY REPORT 03/29/2025 EXTERNAL XRAY REPORT 03/29/2025 HEPATITIS C SCREENING Routine 2023 HIV SCREENING Routine 2023 HM HPV Routine 05/13/2023 LIPID PANEL Routine 03/10/2023 from Last 3 Months or Most Recently Relevant to Health Maintenance Results * US Abdomen Limited (06/25/2025 9:52 [...] Signed Date: 06/25/2025 11:55 ET Workstation ID: [id number] Transcribed By: Self Edit Transcribed Date: 06/25/2025 [...] Signed Date: 06/25/2025 11:55 ET Workstation ID: [id number] Transcribed By: Self Edit Transcribed Date: 06/25/2025 11:35 ET Magda Corrigan MD IMG US PROCEDURES Final Result * External Xray Report (03/29/2025) Only the most recent of4 resultswithin the time period is included. Anatomical Region Laterality Modality Radiographic Yesenia ging us Provider Jose Eduardo Onbase IMG XR PROCEDURES Final Result * HIV Screening (2023) Pathologist [facility] HIV Screening abstracted Historical Provider HEALTH MAINTENANCE Final Result * Hepatitis C Screening (2023) Hepatitis C Screening abstracted Historical Provider HEALTH MAINTENANCE Final Result * Cervical Cancer Screening: HPV (05/13/2023) Pathologist [facility] Cervical Cancer Screening: HPV abstracted, negative Historical Provider HEALTH MAINTENANCE Final Result * Lipid panel (03/10/2023) Pathologist [facility] LDL/HDL Ratio 2 0 - 4 Triglycerides 66 0 - 150 mg/dL Cholesterol 151 0 - 200 mg/dL HDL 69 >=40 mg/dL LDL Cholesterol 69 0 - 100 mg/dL Blood Venous blood specimen / Unknown Historical Provider LAB BLOOD ORDERABLES Tami l Result from Last 3 Months or Most Recently Relevant to Health Maintenance Insurance [facility] [employer] Care Teams Optics Engineer Relationship Specialty Start Date End Date Magda Corrigan MD [address] [place] [address] PCP - General Internal Medicine 03/01/25
--- OUTSIDE RECORDS SUMMARY | 2025-06-27 17:45 | XMS_ITS | Encounter Summary ---
Author Organization [facility] Address [address] [place] [address] Care Team Providers Care Enroute Controller Name Role Phone Magda Corrigan MD Primary Care Provider [phone] Encounter Details Date Type Department Care Team (Late st Contact Info) Description 06/25/2025 Results Follow-Up Internal Medicine - [facility] [address] [place], [place] [phone] Magda Corrigan MD [address] [place], [place] Social History Tobacco Use Types Packs/Day [...] as of this encounter Plan of Treatment Upcoming Encounters Date Type Department Care Team (Late st Contact Info) Description 07/18/2025 5:00 PM EST Evaluation [facility] [place] [address] [place] [phone] Nicolas Bey, ELIANE 08/14/2025 1:30 PM EST Office Visit Orthopedic Surgery - [place] 250 [address] [facility] [address] [place] [phone] Thomas Solano, DPM 175 [facility] 250 [place] [phone] 10/17/2025 2:00 PM EDT Office Visit Internal Medicine - [facility] [address] [place], [place] [phone] Magda Corrigan MD [address] [place] [address] documented as of this encounter Visit Diagnoses Not on filedocumented in this encounter Additional Health Concerns Assessment Noted Time PHQ-9 Depression Total Score: 2 06/19/20 25 3:13 PM EST documented as of this encounter Care Teams Enroute Controller Relationship Specialty Start Date End Date Magda Corrigan MD [address] [place] [address] PCP - General Internal Medicine 03/01/25 documented as of this encounter
--- OUTSIDE RECORDS SUMMARY | 2025-06-27 17:45 | XMS_ITS | Data Portability ---
Author Organization [place] - [facility] Address [address] [place] [address] Care Team Providers Care Supervising Floorperson Name Role Phone DAVION LUDIVINA Primary Care Provider [phone] Assessment Encounter Date Assessment Date Assessment LastModified by Organization Details LastModified Time 10/07/2020 10/07/2020 Overview/History :This is a 34-year-old female that contrary [facility] her evaluation, she has been having symptoms concerning for possible COVID since 2:30 a.m. last night. She is reported cough, sore throat and runny nose. She has been taking znoi-rxf-qfoljdx Cough medication and staying well hydrated with [...] hydrated. I have advised her to take ibwy-kin-tuasbzy medication for her cough as she has been doing and also to treat her low grade fevers with wxkx-awf-vgsants Tylenol. I did explain that her COVID tests would be back in the next 3-5 days and that she will get a phone call with those results. She verbalized understanding of discharge instructions. In order to obtain further information and compare any laboratory results/values, I have accessed patient records on the [place] [facility]. This information was pertinent in my medical decision making today. Time On Scene with Patient: 00:22:05 Proper Personal Protective Equipment (PPE), including gloves, eye protection, N95 mask, gown, and shoe covers were donned and doffed appropriately and all equipment cleaned using approved technique with germicidal disposable wipes prior to and after care of this patient according to [facility]'s infection prevention protocols. [email or web address] Not available 10/07/2020 18:02:17 Plan of Treatment Reminders Order Date Submit Date Provider Last Modified By Organization Details Last Modified Time Details Appointments None recorded. Lab SARS CoV 2 RNA (COVID-19), QL, factory engineer-PCR, respiratory specimen 2020 [email or web address] [facility] (Centralized Electronic Ordering - All Locations), Patient Can Go To The Location Of Their Choice, [address] 09:20:29 Referral None recorded. Procedures None recorded. Surgeries None recorded. Imaging None recorded. Medication Orders acetaminoph en 325 mg tablet 2020 021 [email or web address] [id number], [address] [place], [address], 17:43:02 Patient TargetsNo targets recorded. Patient InstructionsNo [...] Go To The Location Of Their Choice, [id number] 10/09/2020 07:40:48 10/08/1910/09/2020 covid -19 (nove l coron aviru s) PCR covid-19 PCR result (neg) abnormal POSIT [place] Posit [place] for detec tion of 2019- novel Coron aviru s (2018 -nCoV ) by RT-PC Esthela lincoln to the [facility]. All test resul ts must be corre lated with clini adria findi ngs. This test has been autho rized by the FDA under an Emerg ency Use Autho rizat ion (EUA) for use by autho rized labor atori es. Testi ng perfo rmed on the [employer]Ren[employer] ic Panth er Aptim a assay utili zing trans cript ion-m ediat ed ampli ficat ion (TMA) . Not Available [facility] (Centralized Electronic Ordering - All Locations) Patient Can Go To The Location Of Their Choice, [address] 10/09/2020 07:40:48 Result Notes None recorded. Medical [...] Not Available Not Available Not Available FreeStyle Counselor Lite kit USE TO TEST BLOOD SUGARS [...] ICD10 Code Diagnosis IMO Codes Diagnosis Note [id number] MARYLIN MCGRAW NP SPR - HOME [address] [place] [address] 10/07/2020 17:13:05 10/10/2020 12:49:44 Viral upper respiratory tract infection 211998518 J06.9 Exposure t o communicable disease 175130889 Z20.822 Health Concerns Section Related Observation LastModified by Organization Detai ls LastModified Time None Recorded Concern Status LastModified by Organization Details LastModified Time None Recorded Advance Directives Directive None Recorded Payers Insurance Date Sequence Insurance Name Policy Number Policy Negro Covered Member ID Negro Member ID Guarantor Name 10/07/2020 1 *SELF PAY* Jacquelinekarthikeyan Hawkins [id number] Jacqueline Brennane Ross 10/10/2020 1 [place] Jacqueline A Ross [id number] Jacquelinekarthikeyan Hawkins 10/16/2020 1 [facility] [employer] PLAN (MEDICAID HMO) [place] Jacqueline A Ross [id number] Jacqueline Brennane Ross 10/10/2020 1 [facility] [employer] PLAN (MEDICAID HMO) [place] Jacqueline A Ross [id number] Jacqueline Brennane Ross 10/16/2020 2 [place] Jacqueline A Ross [id number] Jacqueline Malika Ross 10/16/2020 2 [place] Jacqueline A Ross [id number] Jacquelinekarthikeyan Brennane Ross 10/16/2020 1 [facility] [email or web address] NET PLAN (MEDICAID HMO) [place] Jacqueline A Ross [id number] Jacqueline Brennane Ross 10/16/2020 1 [place] Jacqueline A Ross [id number] Jacqueline Malika Ross 10/16/2020 2 [place] Jacqueline A Ross [id number] Jacqueline Malika Ross 10/16/2020 1 [facility] [email or web address] NET PLAN (MEDICAID HMO) [place] Jacqueline A Ross [id number] Jacqueline Hawkins Notes Date Note Type Note Provider Name and Address Organization Details Recorded Time 10/07/2020 text/html COVID-19 Symptom s December 2019Reported by Patient This is [facility] 34[facility] 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 She also has some mild developmental delay. She contacted [facility] as she began to have symptoms [...] cough. MARYLIN MCGRAW, GRAY [address], [place], [address], [place] [facility] 10/07/2020 18:11:08 OBGyn Episode No OBEpisode recorded.
--- OUTSIDE RECORDS SUMMARY | 2025-06-27 17:45 | XMS_ITS | Encounter Summary ---
Author Organization [facility] Address [address] [place] [address] Care Team Providers Care Post Anesthesia Nurse Name Role Phone Magda Corrigan MD Primary Care Provider [phone] Reason for Visit * Reason Onset Date Comments Imaging Follow-up 06/27/2025 Encounter Details Date Type Department Care Team (Late st Contact Info) Description 06/27/2025 Telephone Internal Medicine - [place] [address] [place], [place] [phone] Magda Corrigan MD [address] [place], [place] Social History Tobacco Use Types Packs/Day [...] as of this encounter Progress Notes * Coni Altamirano MA - 06/27/2025 1:32 PM EST Gallbladder/Biliary Tree: Gallbladder lumen appears clear without wall thickening or pericholecystic fluid. No intra or extrahepatic biliary ductal dilatation. The common bile duct measures 0.3 cm. Patient informed. Narrative & Impression EXAM: Abdomen ultrasound, limited HISTORY: Right upper [...] lesion which corresponds with biopsy- proven focal nodularhyperplasia. Otherwise, no abnormality detected. Patient informed of results. Advised to call office back if symptoms persist. * Loren Brown - 06/27/2025 1:10 PM EST Asking for a call back regarding last images, asking if gall bladder was viewed? Pls advise documented in this encounter Plan of Treatment Upcoming Encounters Date Type Department Care Team (Late st Contact Info) Description 07/18/2025 5:00 PM EST Evaluation [address] [address] Nicolas Bey PT 08/14/2025 1:30 PM EST Office Visit Orthopedic Surgery - [place] [address] [facility] [address] [place] [address] Thomas Solano, DPM 175 [facility] [address] [place] [address] 10/17/2025 2:00 PM EDT Office Visit Internal Medicine - [address] [phone] Magda Corrigan MD [address] [place] [address] documented as of this encounter Visit Diagnoses Not on filedocumented in this encounter Additional Health Concerns Assessment Noted Time PHQ-9 Depression Total Score: 2 06/19/20 25 3:13 PM EST documented as of this encounter Care Teams Post Anesthesia Nurse Relationship Specialty Start Date End Date Magda Corrigan MD [address] [place] [address] PCP - General Internal Medicine 03/01/25 documented as of this encounter
--- OUTSIDE RECORDS SUMMARY | 2025-06-27 17:45 | XMS_ITS | Encounter Summary ---
Author Organization [facility] Address [address] [place] [address] Care Team Providers Care Mfts Name Role Phone Magda Corrigan MD Primary Care Provider [phone] Reason for Visit * Reason Onset Date Comments Fitting for DME 06/21/2025 Encounter Details Date Type Department Care Team (Late st Contact Info) Description 06/21/2025 Telephone Internal [facility] [place] [facility] [place] [place] [phone] Magda Corrigan MD [address] [place], [place] Social History Tobacco Use Types Packs/Day [...] as of this encounter Progress Notes * Merna Anton MA - 06/27/2025 3:21 PM EST Durable medical equipment prescription request has been faxed to the DME Company : Dina shower chair and grab bars With cover sheet, demographics and jonatan notes Confirmation was received * Tamiko Alexander - 06/21/2025 1:21 PM [...] Fax to other office/MD/pharmacy at fax # [phone] Who is requested? pt Is this a fax request?no Have you told the patient it will take 7-10 days for completion of this request? Yes documented in this encounter Plan of Treatment Upcoming Encounters Date Type Department Care Team (Late st Contact Info) Description 07/18/2025 5:00 PM EST Evaluation [facility] [place] [address] [facility] [address] [place] [address] Nicolas Bey, PT 08/14/2025 1:30 PM EST Office Visit Orthopedic Surgery - [place] [address] [facility] [address] [place] [address] Thomas Solano, DPM [address] [address] 10/17/2025 2:00 PM EDT Office Visit [facility] [address] [place] [address] Magda Corrigan MD [address] [facility] [place] [place] documented as of this encounter Visit Diagnoses Not on filedocumented in this encounter Additional Health Concerns Assessment Noted Time PHQ-9 Depression Total Score: 2 06/19/20 25 3:13 PM EST documented as of this encounter Care Teams Mfts Relationship Specialty Start Date End Date Magda Corrigan MD [address] [facility] [place] PCP - General Internal Medicine 03/01/25 documented as of this encounter
--- OUTSIDE RECORDS SUMMARY | 2025-06-27 17:45 | XMS_ITS | Encounter Summary ---
Author Organization [facility] Address [address] [place] [address] Care Team Providers Care Workers Compensation Specialist Name Role Phone Magda Corrigan MD Primary Care Provider Reason for Visit * Reason Onset Date Comments Faxed Order 06/27/2025 [facility] Domingo nolasco ([id number]) Encounter Details Date Type Department Care Team ([facility] st Contact Info) Description 06/27/2025 Telephone Internal Medicine - [place] [address] [place], [place] [phone] Magda Corrigan MD [address] [place], [place] Social History Tobacco Use Types Packs/Day [...] encounter Progress Notes * Kirsten Villeda - 06/27/2025 8:16 AM EST Orders from [facility] placed in Magda Corrigan MD bin. Please complete and fax back to [phone]. Thank you documented in this encounter Plan of Treatment Upcoming Encounters Date Type Department Care Team (Late st Contact Info) Description 07/18/2025 5:00 PM EST Evaluation [facility] [place] [address] [place] [address] Nicolas Bey, PT 08/14/2025 1:30 PM EST Office Visit Orthopedic Surgery - [place] [address] [facility] [address] [place] [phone] Thomas Solano, DPM 175 [facility] [address] [place] [address] 10/17/2025 2:00 PM EDT [facility] [address] [place], [place] [phone] Magda Corrigan MD [address] [place], [place] documented as of this encounter Visit Diagnoses Not on filedocumented in this encounter Additional Health Concerns Assessment Noted Time PHQ-9 Depression Total Score: 2 06/19/20 3:13 PM EST documented as of this encounter Care Teams Workers Compensation Specialist Relationship Specialty Start Date End Date Magda Corrigan MD [address] [place], [place] PCP - General Internal Medicine 03/01/25 documented as of this encounter
== END 2025-06-27 15:47 | disposition home or self-care (01) ==
LOC: HO.HSMS 15:23
PROVIDERS: PCP Internal Medicine; Visit Provider Psychiatry & Neurology Neurology
DX: G82.20 Paraplegia, unspecified (principal); G25.2 Other specified forms of tremor
CPT/HCPCS: 99214

== ENCOUNTER → 2025-06-27 15:22 | Outpatient (BNVA) | payer OTHER, SELFPAY | PROVIDERS: PCP Internal Medicine; Visit Provider Psychiatry & Neurology Neurology | DX: G25.2 Other specified forms of tremor (principal); G82.20 Paraplegia, unspecified; Z79.899 Other long term (current) drug therapy | CPT/HCPCS: 99212 ==

== ENCOUNTER → 2025-07-04 12:33 | Outpatient (BNV) | payer OTHER, SELFPAY | PROVIDERS: PCP Internal Medicine; Visit Provider Physical Medicine & Rehabilitation | DX: G80.1 Spastic diplegic cerebral palsy (principal) | CPT/HCPCS: 64642; 64643; 95874 ==

== ENCOUNTER 2025-07-04 15:08 | Outpatient (REF) | payer OTHER, SELFPAY ==
--- NOTE | 2025-07-04 12:33 | EMG_ITS ---
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 TOXIN USED: Botox PROCEDURE: The procedure was explained to the patient/caregiver, and informed consent was obtained. The patient laid down prone on bed. Bilateral legs was cleansed with betadine in the usual sterile manner. A 26 gauge needle electrode was used. Muscle Units per site Number of sites Units per muscle Right MG 50 1 50 Right LG 50 1 50 Left MG 50 1 50 Left MG 50 1 50 EMG-guidance was used during the injection. A total of 200 units injected. 0 units wastage. Vial size: 200 units per vial Dilution: 100 units per 2 ml of preservative free saline The patient tolerated the procedure well without complications. The patient was observed for 30 minutes, before being discharged with post procedure instructions. CODING: CPT code: 13698 1 ext, 1-4 muscles Wastage: None Guidance code: 09069 EMG guidance for chemodenervation J code: Botox J0585 [facility] code: 0353-6416-59 Lot #: [id number] Expiration date: [facility]
--- OUTSIDE RECORDS SUMMARY | 2025-07-04 18:10 | XMS_ITS | Data Portability ---
Author Organization [place] - [facility] Address [address] [place] [address] Care Team Providers Care Over Hauler Helper Name Role Phone DAVION LUDIVINA Primary Care Provider Assessment Encounter Date Assessment Date Assessment LastModified by Organization Details LastModified Time 10/07/2020 10/07/2020 Overview/History :This is a 34-year-old female that contrary [facility] her evaluation, she has been having symptoms concerning for possible COVID since 2:30 a.m. last night. She is reported cough, sore throat and runny nose. She has been taking vfem-rsv-hnidodr Cough medication and staying well hydrated with [...] hydrated. I have advised her to take bsjg-jtw-ychxteo medication for her cough as she has been doing and also to treat her low grade fevers with jaom-zix-gitfozd Tylenol. I did explain that her COVID tests would be back in the next 3-5 days and that she will get a phone call with those results. She verbalized understanding of discharge instructions. In order to obtain further information and compare any laboratory results/values, I have accessed patient records on the [place] [employer] [facility]. This information was pertinent in my medical decision making today. Time On Scene with Patient: 00:22:05 Proper Personal Protective Equipment (PPE), including gloves, eye protection, N95 mask, gown, and shoe covers were donned and doffed appropriately and all equipment cleaned using approved technique with germicidal disposable wipes prior to and after care of this patient according to [facility]'s infection prevention protocols. [email or web address] Not available 10/07/2020 18:02:17 Plan of Treatment Reminders Order Date Submit Date Provider Last Modified By Organization Details Last Modified Time Details Appointments None recorded. 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 Procedures None recorded. Surgeries None recorded. Imaging None recorded. Medication Orders acetaminoph en 325 mg tablet 2020 021 [email or web address] [id number], [address] [place], [address], 17:43:02 Patient TargetsNo targets recorded. Patient InstructionsNo [...] Go To The Location Of Their Choice, [address] 10/09/2020 07:40:48 10/08/1910/09/2020 covid -19 (nove l coron aviru s) PCR covid-19 PCR result (neg) abnormal POSIT [place] Posit [place] for detec tion of 2019- novel Coron aviru s (2018 -nCoV ) by RT-PC Esthela lincoln to the [facility]. All test resul ts must be corre lated with clini adria findi ngs. This test has been autho rized by the FDA under an Emerg ency Use Autho rizat ion (EUA) for use by autho rized labor atori es. Testi ng perfo rmed on the [employer]ch[employer]ug ic Panth er Aptim a assay utili zing trans cript ion-m ediat ed ampli ficat ion (TMA) . Not Available [facility] (Centralized Electronic Ordering - All Locations) Patient Can Go To The Location Of Their Choice, [address] 10/09/2020 07:40:48 Result Notes None recorded. Medical [...] Not Available Not Available Not Available FreeStyle [place] Lite kit USE TO TEST BLOOD SUGARS [...] ICD10 Code Diagnosis IMO Codes Diagnosis Note [id number] MARYLIN MCGRAW NP SPR - HOME [address] [place] [address] 10/07/2020 17:13:05 10/10/2020 12:49:44 Viral upper respiratory tract infection 172729163 J06.9 Exposure t o communicable disease 738684496 Z20.822 Health Concerns Section Related Observation LastModified by Organization Detai ls LastModified Time None Recorded Concern Status LastModified by Organization Details LastModified Time None Recorded Advance Directives Directive None Recorded Payers Insurance Date Sequence Insurance Name Policy Number Policy Negro Covered Member ID Negro Member ID Guarantor Name 10/07/2020 1 *SELF PAY* Jacquelinekarthikeyan Hawkins [id number] Jacqueline Brennane Ross 10/10/2020 1 [place] Jacqueline A Ross [id number] Jacquelinekarthikeyan Hawkins 10/16/2020 1 [facility] [employer] PLAN (MEDICAID HMO) [place] Jacqueline A Ross [id number] Jacqueline Brennane Ross 10/10/2020 1 [facility] [employer] PLAN (MEDICAID HMO) [place] Jacqueline A Ross [id number] Jacqueline Brennane Ross 10/16/2020 2 [place] Jacqueline A Ross [id number] Jacqueline Malika Ross 10/16/2020 2 [place] Jacqueline A Ross [id number] Jacquelinekarthikeyan Brennane Ross 10/16/2020 1 [facility] [employer] NET PLAN (MEDICAID HMO) [place] Jacqueline A Ross [id number] Jacqueline Brennane Ross 10/16/2020 1 [place] Jacqueline A Ross [id number] Jacqueline Malika Ross 10/16/2020 2 [place] Jacqueline A Ross [id number] Jacqueline Malika Ross 10/16/2020 1 [facility] [employer] NET PLAN (MEDICAID HMO) [place] Jacqueline A Ross [id number] Jacqueline Hawkins Notes Date Note Type Note Provider Name and Address Organization Details Recorded Time 10/07/2020 text/html COVID-19 Symptom s December 2019Reported by Patient This is a 34[facility] 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 She also has some mild developmental delay. She contacted [facility] as she began to have symptoms of [...] cough. MARYLIN MCGRAW, GRAY [address], [place], [address], [place] [facility] 10/07/2020 18:11:08 OBGyn Episode No OBEpisode recorded.
== END 2025-07-04 15:09 | disposition home or self-care (01) ==
LOC: HO.NEURO 15:08
PROVIDERS: PCP Internal Medicine; Visit Provider Physical Medicine & Rehabilitation
DX: G80.1 Spastic diplegic cerebral palsy (principal)
CPT/HCPCS: 64642; 95874; J0585